=== PATIENT | female | born 1965 ===

== ENCOUNTER 2024-07-17 10:08 | Outpatient (AMB) | payer MEDICAID, SELFPAY ==
--- NOTE | 2024-07-17 10:09 | A.OFFVIS_ITS ---
Vital Signs 07/17/24 10:12 Height 4 ft 11 in Weight 178 lb 2 oz BMI 36.0 BP 110/72 Blood Pressure Location Rt brachial Position Sitting Pulse 73 Pulse Source Pulse Oximeter Pulse Oximetry (%) 97 Oxygen Delivery Method Room Air Intake Visit Reasons: arthritis Intake Note: Patient resents follow up arthritis Allergies amoxicillin [AMOXICILLIN] Allergy (Intermediate, Verified 07/17/24 10:13) HIVES clarithromycin [CLARITHROMYCIN] Allergy (Intermediate, Verified 07/17/24 10:13) HIVES clindamycin [CLINDAMYCIN] Allergy (Intermediate, Verified 07/17/24 10:13) HIVES ibuprofen [IBUPROFEN] Allergy (Intermediate, Verified 07/17/24 10:13) HIVES HPI HPI arthritis: Details: R knee burning started last april. Left knee has been hurting too. She notices swelling behind the knee. R elbow pain started 3-4 months ago. Exacerbated with using arm rest in car and touching area. Using tylenol 500mg x2 every 4 hours (3000-4000mg daily). Review of Systems Const All systems reviewed & are unremarkable except as noted in HPI and below Physical Exam Vital Signs: Last Vital Signs Pulse 73 07/17/24 10:12 BP 110/72 07/17/24 10:12 Pulse Ox 97 07/17/24 10:12 Oxygen Delivery Method Room Air 07/17/24 10:12 BMI result Body Mass Index 36.0 Const Other: General: Comfortable Skin: No lesions seen MSK: Tender to palpate medial and lateral joint lines of right knee and medial joint line of left knee. Bilateral crepitus present. Knee flexion 90 degrees bilateral. Stanford's cyst not present. Tender to palpate medial epicondyles without soft tissue swelling noted. No pain with resistant wrist flexion. Assessment & Plan Assessment & Plan (1) Knee osteoarthritis: Comment: bilateral R> L. she had benefit with right new intra-articular cortisone injection last visit but does not want to proceed with another injection due to fear of needles. We discussed medical management of pain control of osteoarthritis. I have ordered labs prior to starting duloxetine, which is indicated to treat knee pain from osteoarthritis. Code(s): M17.9 - Osteoarthritis of knee, unspecified Category: Medical Qualifiers: Osteoarthritis type: primary Plan: Bilateral knee x-rays ordered to evaluate for progression of arthritis Continue Tylenol 1000 mg every 6 hours. Discussed importance of limiting Tylenol to not more than 4000 mg in a day Continue diclofenac gel 1% applied to affected area every 4-6 hours as needed PT ordered After lab results are back, I will send prescription for duloxetine 30 mg daily I am avoiding oral NSAIDs as patient has had hives on ibuprofen and was told to avoid all NSAIDs. Right knee hinged brace prescription given to patient Encouraged weight loss. I recommended that patient contact PCP for seat covers trimmer referral and a discussion about medical management of weight loss Requesting records from [facility] Return to clinic in 3 months (2) Medial epicondylitis: Comment: Suspected. We discussed conservative management. Code(s): M77.00 - Medial epicondylitis, unspecified elbow Category: Medical Qualifiers: Laterality: unspecified laterality Qualified Code(s): M77.00 - Medial epicondylitis, unspecified elbow Plan: PT ordered Bilateral elbow support bands prescription given to patient Apply ice to affected area twice a day Avoid applying elbow on hard surfaces Apply diclofenac gel 1% to affected area every 4-6 hours as needed Return to clinic in 3 months Orders: Orders PT Evaluation and Treatment Today M17.9 - Osteoarthritis of knee, unspecified, M77.00 - Medial epicondylitis, unspecified elbow XR knee LT 2V Today M17.0 - Bilateral primary osteoarthritis of knee XR knee RT 2V Today M17.0 - Bilateral primary osteoarthritis of knee Creatinine Today M17.9 - Osteoarthritis of knee, unspecified, M77.00 - Medial epicondylitis, unspecified elbow Alanine Aminotransferase Today M17.9 - Osteoarthritis of knee, unspecified, M77.00 - Medial epicondylitis, unspecified elbow Aspartate Amino Transferase Today M17.9 - Osteoarthritis of knee, unspecified, M77.00 - Medial epicondylitis, unspecified elbow Complete Blood Count Auto Diff Today M17.9 - Osteoarthritis of knee, unspecified, M77.00 - Medial epicondylitis, unspecified elbow Medications: New arm brace (STEPH Elbow Brace) As directed. Bilateral elbow support bands Dx: medial epicondylitis 2 ea 0RF leg brace (Knee Support Brace) As directed R hinged brace Dx: osteoarthritis knee 1 ea 0RF Coding Level of Care Code Est Pt Level 4 (51663) Complex EM visit Add On G2211 Diagnoses Knee osteoarthritis M17.9 Osteoarthritis type: primary Medial epicondylitis of elbow, unspecified laterality M77.00 Laterality: unspecified laterality
[2024-07-17 10:12] VITALS: BP 110/72; PULSE 73; O2SAT 97; BMI 36.0
--- OUTSIDE RECORDS SUMMARY | 2024-07-17 12:00 | XMS_ITS | Clinical Summary ---
Author Organization [facility] Address [address] [place] [address] Care Team Providers Care Welcome Hostess Name Role Phone Lexa Cronin MD Primary Care Provider Source Comments PLEASE NOTE, if this patient is a minor, it may be UNLAWFUL to discuss sensitive information that is contained in these records (such as FAMILY PLANNING, MENTAL HEALTH or SUBSTANCE ABUSE) with the minor patient's parent or other person without the patient's specific authorization.[facility] Allergies Active Allergy Reactions Criticality Noted Date Comments Amoxicillin Hives Clarithromycin Hives Clindamycin Hives 01/17/2013 Fish Derived 06/14/2022 Ibuprofen Nausea and Vomiting Gi upset Latex 11/28/2022 Pollen Extracts 06/14/2022 Medications FLUoxetine (PROZAC) 20 mg capsuleIndication s:Anxiety and depression PSYCH- AUDIE 60MG QD 90 Cap 1 Active EPINEPHrine (EPIPEN) 0.3 mg/0.3 mL pen injectorIndicatio ns:Seafood allergy PRESCRIBED BY [employer] OPERATOR[address] [phone] 1 mL 020 Active miscellaneous medical supply misc by miscellaneous route once daily Cool mist humidifier, disp1,lifetime need, dx sinus congestion 1 Each 020 Active rizatriptan (MAXALT) 5 mg tablet PRESCRIBED BY NEUROLOGY BRYANT SILVERMAN Active divalproex (DEPAKOTE) [address] tablet TAKE 1 TABLET BY MOUTH AT SUPPER DAILY WITH 500 MG TAB Active doxepin (SINEQUAN) 50 mg capsule TAKE 1 CAPSULE BY MOUTH EVERYDAY AT BEDTIME Active MISCELLANEOUS MEDICAL SUPPLY MISCIndications:O steoarthritis of both knees, unspecified osteoarthritis type,Moderate persistent asthma without complication,Clas s 2 severe obesity due to excess calories with serious comorbidity and body mass index (BMI) of 38.0 to 38.9 in adult ([facility]),Chronic right-sided low back pain with right-sided sciatica,Fibromya lgia,Calcaneal spur of both feet,Plantar fasciitis, right,Tendinitis of left rotator cuff by miscellaneous route daily Electric Scooter. Use daily. Lifetime use. 1 Each 023 Active VENTOLIN HFA 90 mcg/actuation inhalerIndication s:Moderate persistent asthma without complication Inhale 2 Puffs into the lungs every 4 (four) hours as needed for shortness of breath or wheezing 18 g 1 023 Active betamethasone dipropionate (DIPROLENE) 0.05 % cream Apply topically once daily 15 g 1 023 Active capsaicin (CAPZASIN-HP) 0.1 % cream Apply topically 3 (three) times daily 43 g 023 Active ipratropium-albut Angelina (COMBIVENT RESPIMAT) 20-100 mcg/actuation inhalerIndication s:Moderate persistent asthma without complication INHALE 1 PUFF INTO THE LUNGS 4 TIMES DAILY. 4 g 1 023 Active albuterol (PROVENTIL) 2.5 mg /3 mL (0.083 %) nebulizer solutionIndicatio ns:Moderate persistent asthma without complication QID as needed for wheezing, SOB 75 mL 1 023 Active blood pressure monitorIndication s:Essential hypertension BLOOD PRESSURE MONITOR. Check blood pressure once daily in sitting position. Dx: I10. Length: lifetime 1 Kit 023 Active meloxicam (MOBIC) 15 mg tablet Take 1 Tablet by mouth once daily 90 Tablet 023 Active omeprazole (PRILOSEC) [address] capsuleIndication s:Gastroesophagea l reflux disease, unspecified whether esophagitis present TAKE 1 CAPSULE BY MOUTH EVERY DAY IN THE MORNING BEFORE BREAKFAST 90 Capsule 024 Active fluticasone (FLONASE) 50 mcg/actuation nasal sprayIndications: COVID-19,Chronic rhinitis Place 2 Sprays in both nostrils once daily 48 g 1 024 Active acetaminophen (TYLENOL 8 HOUR) 650 mg CR tabletIndications :Viral upper respiratory tract infection Take 1 Tablet by mouth every 8 (eight) hours as needed for pain 90 Tablet 1 Active diclofenac sodium (VOLTAREN) 1 % gel Apply topically 2 (two) times daily 450 g 1 Active pravastatin (PRAVACHOL) 10 mg tabletIndications :Mixed hyperlipidemia Take 1 Tablet by mouth nightly at bedtime 90 Tablet 1 Active lidocaine (LIDODERM) 5 % patch Place 1 Patch onto the skin once daily (every 24 hours) 90 Patch 1 Active fluticasone propion-salmetero L (ADVAIR DISKUS) 500-50 mcg/dose diskus inhalerIndication s:Moderate persistent asthma without complication INHALE 1 PUFF INTO THE LUNGS TWICE A DAY 60 Each 3 Active prazosin (MINIPRESS) 1 mg capsule TAKE 1 CAPSULE BY MOUTH EVERYDAY AT BEDTIME 90 Capsule 1 025 Active methocarbamoL (ROBAXIN) 500 mg tabletIndications :Cervicalgia,Fibr omyalgia TAKE 1 TABLET BY MOUTH THREE TIMES A DAY 180 Tablet 025 Active loratadine (CLARITIN) 10 mg tablet TAKE 1 TABLET BY MOUTH ONCE DAILY NEEDED FOR ALLERGIES 90 Tablet 1 025 Active loratadine (CLARITIN) 10 mg tablet Take 1 Tablet by mouth once daily as needed for allergies 90 Tablet 1 024 2024 Discontinued prazosin (MINIPRESS) 1 mg capsule TAKE 1 CAPSULE BY MOUTH EVERYDAY AT BEDTIME 90 Capsule 1 024 2024 Discontinued methocarbamoL (ROBAXIN) 500 mg tabletIndications :Cervicalgia,Fibr omyalgia TAKE 1 TABLET BY MOUTH THREE TIMES A DAY 180 Tablet 024 2024 Discontinued Active Problems Patient Care Coordination No te Formatting of this note migh t be different from the original. Community Partner: [facility] [facility] Jerardo Metzger Atmospheric Technician phone [phone] E mail: [email or web address] Problem Noted Date Diagnosed Date Alopecia 07/09/2024 Overview (07/09/2024): Follows [facility] Food insecurity 08/17/2023 Financial difficulties 08/17/2023 Lack of access to transportation 08/17/2023 Bilateral nephrolithiasis 03/07/2023 Overview (04/23/2024): 03/2024: 2 small calculi, lifestyle modification. F/u in 1 year. 02/2024: Urgent CT scan 2/2 pain, increase water, decrease sugary drinks 10/2023: Seen by Urology, recommended to cut back on sugary drinks 08/17/23: Following [facility], CT A/P and renal US pending 12/28/22: CT A/P L>R, measuring 4mm b/l 01/10/19 - seen at [facility] c/o R flank pain and epigastric pain. CT Abd/pelvis w/ contrast: IMPRESSION: 3 mm UVJ calculus w/ R hydronephrosis, right hydroureter, and R periphrenic stranding. Nonobstructing penctate L nephrolithiasis. Small hiatal hernia with mucosal thickening. Consider endoscopy f/u. 01/15/19 - [facility] eval: would suggest trial of spontaneous passage, f/u 2 weeks with a f/u u/s. 01/29/19 - urology f/u: pt asymptomatic, continues to have microscopic hematuria, uncertain if she passed stone. Will obtain low-dose CT. F/U after 04/04/19 - urology f/u: Recent CT shows no obstructing calculi w/ previously known punctate 4 mm nonobstructing calculi in L kidney. F/U 6 mos with U/S and 24 hr urine study. Essential hypertension 12/30/2022 Neuropathic pain 10/07/2022 10/07/2022 Chronic GERD 08/01/2021 Seafood allergy 03/06/2020 Sensorineural hearing loss (SNHL), bilateral Overview (11/25/2018): 04/10/18 - Seen by Audiology: Pt had hearing aids in the past but lost both of them 6-7 months ago. Audiogram shows moderate SNHL b/l, will arrange for hearing aid evaluation. Obstructive sleep apnea syndrome 09/12/2016 Overview (05/22/2024): + CPAP tx, followed by Pulm Dr. Martinez reports being consistent with use of NIVV Last sleep study 05/2024 Mixed hyperlipidemia 09/09/2014 Chronic right-sided low back pain with right-osmar ed sciatica 06/09/2014 Overview (05/11/2016): x-rays lumbar spine done 05/10/16 at [facility] = mild disc level degenerative changes at L1-L2 but otherwise normal. OA (osteoarthritis) of both knees Overview (08/17/2023): [facility] and receiving injections, every 3 months Anxiety and depression Overview (08/17/2023): Hx suicide attempts, insomnia ON PSYCH/BH for medication and therapy on [address] Therapy every week Psych every 3 months Moderate persistent asthma Overview (08/17/2023): Pulm Dr. Martinez at [address] Every 1-2 months Migraine without aura and wi thout status migrainosus, not intractable Overview (08/17/2023): Neuro f/u at [facility], every 3 to 4 months 04/24/17 - [facility] Neuro F/U: -- Continue psychotherapy and work on stress reduction, CPAP, Topiramate 100mg BID, Gabapentin 800mg TID and Nortriptyline 50mg QHS from other providers for other indications but these medications can also be used in treatment of headaches, Decrease Coke and increase water, Referral to pain center for evaluation of possible Botox therapy. F/U 6 mos 10/26/18 - Neuro F/U: started on Riboflavin 400 mg (vitamin B2). Consider adding Mg 400 mg daily. May consider trial of aimovig, has trialed and failed gabapentin, topamax, fluoxetine, trazodone . F/U 3-4 mos. Fibromyalgia Resolved Problems Problem Noted Date Diagnosed Date Resolved Date Hair loss 03/06/2020 12/30/2022 Hiatal hernia 01/10/19 05/07/2019 023 Overview (05/07/2019): 01/10/19 - seen at [facility] c/o R flank pain and epigastric pain. CT Abd/pelvis w/ contrast: IMPRESSION: 3 mm UVJ calculus w/ R hydronephrosis, right hydroureter, and R periphrenic stranding. Nonobstructing penctate L nephrolithiasis. Small hiatal hernia with mucosal thickening. Consider endoscopy f/u. Tendinitis of left rotator cuff 11/25/2018 12/30/2022 Overview (11/25/2018): 03/28/18 - R shoulder xray: calcific tendonitis. 07/01/18 - B/l shoulder xrays s/p fall: no fx/dislocation. R shoulder shows calcific peritendinitis adjacent to greater tiuberosity. 08/30/18 - Seen by ATC Dr. Magaña for L shoulder pain and R ankle pain. Dx: arthralgia of shoulder region, rotator cuff tendonitis. Tx: LEFT GH joint injection, F/u with podiatry for foot pain H/O fracture of toe 11/25/2015 12/31/19 Overview (12/17/2018): X-ray 11/23/15 nondisplaced traumatic fracture distal phalanx left 1st toe. 11/27/18 - Seen at [facility] for foot pain after fall. R ankle xray: neg. R foot xray: possible nondisplaced fx through the proximal phalanx of the R 4th toe. 12/14/18 - Seen at [facility] Ed c/o anterior R foot pain s/p fall 2 days ago. XRAY R foot: healing, nondisplaced Fx of the proximal phalanx of the 4th digit. Plantar fasciitis, right 01/01/2015 Overview (12/03/2018): X-ray 02/08/15 at [facility] = inferior calcaneal osteophytes, mildly increased since 12/26/13. S/p surgery right ankle 01/12/15 (peroneal tendon repair, tarsal tunnel release and plantar fasciotomy) done at [facility] Seen by [facility] 11/06/15 for 2nd opinion on pain and advised stretching to improve gastroc flexibility. 08/08/18 - Seen by Neuro Dr. Sosa for persistent sharp and needle-like pain in R foot s/p fall in ~2014. Dx: chronic pain syndrome. F/U at earliest convenience with all meds. Calcaneal spur of both feet 12/23/2014 12/30/2022 Overview (12/03/2018): X-rays 12/21/14 at [facility] = moderate sized inferior calcaneal osteophyte. X-ray 02/08/15 at [facility] = inferior calcaneal osteophytes, mildly increased since 12/26/13. Hemorrhoids 07/14/2014 12/30/2022 Microcytic anemia 11/04/2011 12/30/2022 Allergic rhinitis due to allergen 12/30/2022 Overview (04/16/2013): F/U [employer]. Encounters Date Type Department Care Team Description 07/04/2024 3:00 PM EST Telemedicine Visit [address] [phone] Chaparrita Martin NP Hair loss (Primary Dx); Other fatigue; Numbness of fingers; SOB (shortness of breath); Atypical chest pain; Mixed hyperlipidemia 05/30/2024 Interim Notes [address] [phone] Xochitl Scuhster 05/30/2024 Interim Notes [address] [phone] Khloe Hernandez 04/24/2024 Interim Notes [address] [phone] Lexa Cronin MD Screening mammogram for breast cancer (Primary Dx); Cervical cancer screening from Last 3 Months Immunizations Name Administration Dates Next Due Flu, Cell Culture based, Pre servative Free, 6m+, Flucelvax 04/27/2018,04/27/2018,03/29/2017,2016 Flu, Preservative Free 07/29/2021,01/26/2017,10/2014 Hep B, Adult/Adol (ENERGIX/RECOMBIVAX) 08/23/2000,06/07/2000 INFLUENZA, SEASONAL, INJECTABLE 06/27/19 17,03/16/2012,06/01/2011,2008,03/11/2008,04/24/2003 PFIZER COVID VACCINE, PURPLE CAP, 12+ 05/17/2021 PNEUMOCOCCAL CONJUGATE PCV 13 01/26/2017 PNEUMOCOCCAL CONJUGATE PCV 2 0 (Prevnar) 12/30/2022 Pfizer COVID-19 (Comirnaty), Mrna, Lnp-s, Pf, Naldo-sucrose, 30 Mcg/0.3 Ml, 12yr+ 08/17/2023 TDAP 08/17/2023,03/22/2013 ZOSTER VACCINE, RECOMBINANT (SHINGRIX) 12/30/2022 Family History Medical History Relation Name Comments Hypertension Father Heart Problems Mother Hypertension Mother Relation Name Status Comments Father Mother Social History Tobacco Use Types Packs/Day Years Used Date Smoking Tobacco: Never Smokeless Tobacco: Never Tobacco Cessation:Counseling Given: Not Answered Alcohol Use Standard Drinks/Week Comments No 0 (1 standard drink = 0.6 oz pur e alcohol) Social Connections Answer Date Recorded Connectedness 1 05/31/2024 Financial Resource Strain Answer Date R ecorded Financial Resource Strain 2 2023 Stress Answer Date Recorded Stress 1 05/31/2024 Physical Activity Answer Date Recorded Physical Activity 0 01/26/2019 Food Insecurity Answer Date Recorded Food 2 05/31/2024 Transportation Needs Answer Date Record ed Transportation 1 05/31/2024 Housing Stability Answer Date Recorded Housing 1 05/31/2024 Safety and Environment Answer Date Rosales rded Safety 1 08/17/2023 Utilities Answer Date Recorded Utilities 1 05/31/2024 Employment Answer Date Recorded Stress 0 06/14/2022 Comments No Sex and Gender Information Value Date Recorded Sex Assigned at Female 06/18/2017 8:21 AM PST Legal Sex Female 11:36 AM PDT Gender Identity Female 06/18/2017 8:21 AM PST Sexual Orientation Straight 07/28/2017 8: 08 AM PST Last Filed Vital Signs Vital Sign Reading Time Taken Comments Blood Pressure 100/64 08/17/2023 11:02 AM EDT Pulse 89 08/17/2023 11:02 AM EDT Temperature 36.1 ??C (97 ??F) 08/17/2023 11:02 AM EDT Respiratory Rate 16 08/17/2023 11:02 AM EDT Oxygen Saturation 96% 08/17/2023 11:02 AM EDT Inhaled Oxygen Concentration - - Weight 80.9 kg (178 lb 6.4 oz) 08/17/2023 11:02 AM EDT Height 150.7 cm (4' 11.33 ) 08/17/2023 11:02 AM EDT Body Mass Index 35.63 08/17/2023 11:02 AM EDT Plan of Treatment Health Maintenance Due Date Last Done Comments HPV Screening 1965 Pap + HPV 1965 CT Colonography 2010 FIT/gFOBT 2010 Fecal DNA 2010 Flexible Sigmoidoscopy 2010 Cervical Cancer Screening 09/28/2012 Pap Smear 09/28/2012 09/28/2009 Depression Monitoring 11/17/2023 08/17/2023 , 05/08/2023, 11/24/2022, Additional history exists [id number] ( season) 2024 08/17/2023, 05/17/2021, 11/14/2020, Additional history exists Imm-Influenza (#1) 2024 07/29/2021, 1 06/27/2017 (Managed by Outside Provider), 04/27/2018, Additional history exists Alcohol and Drug Screen 06/05/2024 08/17/19, 12/30/2022, 06/14/2022, Additional history exists Annual Preventive Care Visit 08/16/2024, 07/10/2018, 01/26/2017, Additional history exists Breast Cancer Screening (Mammogram) 03/14/2025 03/14/2023, 09/21/2020, 09/14/2020, Additional history exists Tobacco Screening 07/04/2025 07/04/2024, 12/14/2022 Diabetes Screening 07/09/2025 07/09/2024, 0 08/17/2023, 08/17/2023, Additional history exists Lipid Screening 07/09/2025 07/09/2024, 08/03, 12/08/2022, Additional history exists Colonoscopy 11/30/2025 12/01/2015 Colorectal Cancer Screening 11/30/2025 Imm-DTaP/Tdap/Td (3 - Td or Tdap) 08/16/2033 024, 03/22/2013 HIV Screening Completed 09/08/2017 Hepatitis C Screening Completed 09/08/2017 Imm-Pneumococcal Completed 12/30/2022, 01/26/2017 Imm-Hepatitis B Completed 08/28/2023, 08/04, 06/07/2000 Imm-Zoster, Recombinant Completed 08/28/2023, 12/30 Cervical Ablation/Cold-Knife Conization Discontinued Cervical Cryotherapy Discontinued Colposcopy Discontinued Endometrial Biopsy Discontinued Excision/Leep Discontinued HPV Genotyping Discontinued Vaginal Pap Discontinued Vulvoscopy Discontinued Procedures Procedure Name Priority Date/Time Associated Diagnosis Comments LIPID PANEL Routine 07/09/2024 9:05 AM EST Mixed hyperlipidemia COMPREHENSIVE METABOLIC PANEL Routine 07/09/2024 9:05 AM EST Hair loss Other fatigue Numbness of fingers SOB (shortness of breath) Atypical chest pain BLOOD COUNT COMPLETE AUTOMATED Routine 07/09/2024 9:05 AM EST Hair loss Other fatigue Numbness of fingers SOB (shortness of breath) Atypical chest pain VITAMIN B12 & FOLATE Routine 07/09/2024 9:05 AM EST Hair loss Other fatigue Numbness of fingers SOB (shortness of breath) Atypical chest pain THYROID CASCADING REFLEX PANEL Routine 07/09/2024 9:05 AM EST Hair loss Other fatigue Numbness of fingers SOB (shortness of breath) Atypical chest pain IRON, TIBC, FERRITIN PANEL Routine 07/09/2024 9:05 AM EST Hair loss Other fatigue Numbness of fingers SOB (shortness of breath) Atypical chest pain REFERRAL SCANNED DOCUMENT 07/04/2024 3:00 AM EST IMAGING SCANNED DOCUMENT 05/28/2024 3:00 AM EST IRON, TIBC, FERRITIN PANEL Routine 05/16/2024 11:35 AM EST Fatigue, unspecified type BLOOD COUNT COMPLETE AUTOMATED Routine 05/16/2024 11:35 AM EST Fatigue, unspecified type REFERRAL SCANNED DOCUMENT 05/13/2024 3:00 AM EST OTHER ORDERS SCANNED DOCUMENT 04/17/2024 3:00 AM EST OTHER ORDERS SCANNED DOCUMENT 04/17/2024 3:00 AM EST HISTORIC MAMMOGRAM 03/14/2023 3: 00 AM EDT ANTIBODY HIV-1&HIV-2 SINGLE RESULT Routine 09/08/2017 10:23 AM EDT Screening for HIV without presence of risk factors HEPATITIS A,B,C PANEL Routine 09/08/2017 10:23 AM EDT Need for hepatitis C screening test from Last 3 Months or Most Recently Relevant to Health Maintenance Results * IRON, TIBC, FERRITIN PANEL (07/09/2024 9:05 AM EST) Only the most recent of2 resultswithin the time period is included. FERRITIN 74 16 - 232 ng/mL [facility] IRON, TOTAL 68 45 - 160 mcg/dL [facility] IRON BINDING CAPACITY 263 250 - 450 mcg/dL (calc) [facility] % SATURATION 26 16 - 45 % (calc) [facility] Blood Blood / Unknown 07/09/2024 9 :05 AM EST 07/09/2024 9:06 AM EST us Chaparrita Martin NP LAB - BLOOD DRAW Final Resul t [employer] [address] [place] [id number], [employer] [address] [phone] * THYROID CASCADING REFLEX PANEL (07/09/2024 9:05 AM EST) TSH 1.29 0.40 - 4.50 mIU/L [facility] Blood Blood / Unknown 07/09/2024 9 :05 AM EST 07/09/2024 9:06 AM EST Chaparrita Martin [employer] LAB - BLOOD DRAW Edited Resu lt - Final [employer] [facility] [address] [address], [employer] [address] [address] * VITAMIN B12 & FOLATE (07/09/2024 9:05 AM EST) [facility] VITAMIN B12 379 200 - 1,100 pg/mL [facility] Comment: Please Note: Although the reference range for vitamin B12 is 200-1100 pg/mL, it has been reported that between 5 and 10% of patients with values between 200 and 400 pg/mL may experience neuropsychiatric and hematologic abnormalities due to occult B12 deficiency; less than 1% of patients with values above 400 pg/mL will have symptoms. FOLATE, SERUM 9.7 5.5 ng/mL [facility] Comment: ? Reference Range ? Low: ? <3.4 ? Borderline: ?3.4-5.4 ? Normal: ?>5.4 Blood Blood / Unknown 07/09/2024 9 :05 AM EST 07/09/2024 9:06 AM EST Chaparrita Martin [employer] APPLIQUER LAB - BLOOD DRAW Edited Resu lt - Final Performing Organization Address [facility]/ZIP Co de Phone Number [facility] [address] [address], [employer] [address] [address] * BLOOD COUNT COMPLETE AUTOMATED (07/09/2024 9:05 AM EST) Only the most recent of2 resultswithin the time period is included. [facility] WHITE BLOOD CELL COUNT 4.2 3.8 - 10.8 Thousand/ uL [facility] RED BLOOD CELL COUNT 4.23 3.80 - 5.10 Million/u L [facility] HEMOGLOBIN 12.6 11.7 - 15.5 g/dL [facility] HEMATOCRIT 38.0 35.0 - 45.0 % [facility] MCV 89.8 80.0 - 100.0 fL [facility] MCH 29.8 27.0 - 33.0 pg [facility] MCHC 33.2 32.0 - 36.0 g/dL [facility] Comment: For adults, a slight decrease in the calculated MCHC value (in the range of 30 to 32 g/dL) is most likely not clinically significant; however, it should be interpreted with caution in correlation with other red cell parameters and the patient's clinical condition. RDW 12.5 11.0 - 15.0 % [facility] PLATELET COUNT 313 140 - 400 Thousand/ uL [facility] MPV 9.7 7.5 - 12.5 fL [facility] Blood Blood / Unknown 07/09/2024 9 :05 AM EST 07/09/2024 9:06 AM EST Chaparrita Martin NP LAB - BLOOD DRAW Edited Resu lt - Final [employer] [employer] [address] [address], [facility] [address] [place] [address] * (ABNORMAL) LIPID PANEL (07/09/2024 9:05 AM EST) [facility] CHOLESTEROL, TOTAL 177 <200 mg/dL [facility] HDL CHOLESTEROL 59 > OR = 50 mg/dL [facility] TRIGLYCERIDES 73 <150 mg/dL [facility] LDL-CHOLESTEROL 102(H) 99 mg/dL (calc) [facility] Comment: Reference range: <100 Desirable range <100 mg/dL for primary prevention; ?? <70 mg/dL for patients with CHD or diabetic patients with > or = 2 CHD risk factors. LDL-C is now calculated using the Jason calculation, which is a validated novel method providing better accuracy than the Friedewald equation in the estimation of LDL-C. Sage AVALOS et al. MIAH. 2013;310(19): 2288-6253 (http://education.Soapets/faq/LPD403) CHOL/HDLC RATIO 3.0 <5.0 (calc) [facility] NON-HDL CHOLESTEROL 118 <130 mg/dL (calc) [facility] Comment: For patients with diabetes plus 1 major ASCVD risk factor, treating to a non-HDL-C goal of <100 mg/dL (LDL-C of <70 mg/dL) is considered a therapeutic option. Blood Blood / Unknown 07/09/2024 9 :05 AM EST 07/09/2024 9:06 AM EST Chaparrita Martin NP LAB - BLOOD DRAW Final Resul t [facility] [employer] [address] [place] [id number], [facility] [address] [place] [phone] * COMPREHENSIVE METABOLIC PANEL (07/09/2024 9:05 AM EST) [facility] Signature GLUCOSE 96 65 - 99 mg/dL [facility] Comment: ?Fasting reference interval UREA NITROGEN (BUN) 12 7 - 25 mg/dL [facility] CREATININE (blood) 0.60 0.50 - 1.03 mg/dL [facility] EGFR 103 > OR = 60 mL/min/1. 73m2 [facility] BUN/CREATININE RATIO SEE NOTE: [facility] Comment: ?? Not Reported: BUN and Creatinine are within ?? reference range. ? SODIUM 140 135 - 146 mmol/L [facility] POTASSIUM 4.4 3.5 - 5.3 mmol/L [facility] CHLORIDE 105 98 - 110 mmol/L [facility] CARBON DIOXIDE 26 20 - 32 mmol/L [facility] CALCIUM 9.2 8.6 - 10.4 mg/dL [facility] PROTEIN, TOTAL 6.9 6.1 - 8.1 g/dL [facility] ALBUMIN 4.2 3.6 - 5.1 g/dL [facility] [place] [employer] GLOBULIN 2.7 1.9 - 3.7 g/dL (calc) [facility] ALBUMIN/GLOBULI N RATIO 1.6 1.0 - 2.5 (calc) [facility] BILIRUBIN, TOTAL 0.4 0.2 - 1.2 mg/dL [facility] ALKALINE PHOSPHATASE 97 37 - 153 U/L [facility] AST 20 10 - 35 U/L [facility] ALT 11 6 - 29 U/L [facility] Blood Blood / Unknown 07/09/2024 9 :05 AM EST 07/09/2024 9:06 AM EST Chaparrita Martin [employer] APPLIQU[employer] LAB - BLOOD DRAW Final Resul t [facility] [address] [address], [employer] [address] [address] * REFERRAL SCANNED DOCUMENT (07/04/2024 3:00 AM EST) Only the most recent of2 resultswithin the time period is included. 07/04/2024 3:00 AM EST Emanuel Provider Default SCAN REFERRAL Final Resu lt * IMAGING SCANNED DOCUMENT (05/28/2024 3:00 AM EST) 05/28/2024 3:00 AM EST David Williamson MD SCAN IMAGING Final Result * OTHER ORDERS SCANNED DOCUMENT (04/17/2024 3:00 AM EST) Only the most recent of2 resultswithin the time period is included. 04/17/2024 3:00 AM EST Lexa Cronin MD SCAN OTHER ORDERS Final Result * HISTORIC MAMMOGRAM (03/14/2023 3:00 AM EDT) 03/14/2023 3:00 AM EDT Telma Churchill O[employer] BLASTING-C IMG MAMMO Final Re sult * (ABNORMAL) HEPATITIS A,B,C PANEL (09/08/2017 10:23 AM EDT) HEPATITIS B SURFACE ANTIBODY NEGATIVE NEGATIVE [facility] HEPATITIS B SURFACE ANTIGEN NEGATIVE NEGATIVE [facility] Comment: Over the counter supplements containing high doses of biotin may interfere with this assay. ??If interference is suspected, patients shoud be retested after refraining from biotin supplements for 72 hours. HEPATITIS C VIRUS DIAGNOSTIC NEGATIVE NEGATIVE [facility] HEPATITIS B CORE ANTIBODY NEGATIVE NEGATIVE [facility] HEPATITIS A ANTIBODY TOTAL POSITIVE(A) NEGATIVE [facility] Comment: Over the counter supplements containing high doses of biotin may interfere with this assay. ??If interference is suspected, patients shoud be retested after refraining from biotin supplements for 72 hours. Blood specimen (specimen) Blood / Unknown 09/08/2017 10:23 AM EDT 09/08/2017 10:[address] [facility] - 09/08/2017 1:01 PM EDT [facility] [employer] [address] [place] [address] PT ID [id number] ORD# [id number] Carmen Demarco PA-C LAB - BLOOD DRAW Edited R esult - Final [address] [address], * HIV-1 & HIV-2 ANTIBODIES (09/08/2017 10:23 AM EDT) HIV 1 AND 2 ANTIBODY SCREEN NEGATIVE NEGATIVE [facility] Comment: This assay is a 4th generation assay allowing for earlier detection of HIV infection by detecting the presence of the HIV-1 p24 antigen as well as the traditional antibodies to HIV type 1 (including group O) and type 2. ??Use of a 4th generation assay is the current CDC recommendation for HIV screening. Blood specimen (specimen) Blood / Unknown 09/08/2017 10:23 AM EDT 09/08/2017 10:40 AM EDT [facility] 09/08/2017 1:30 PM EDT [facility] [address] [place] [address] PT ID [id number] ORD# [id number] Carmen Demarco PA-C LAB - BLOOD DRAW Final Re sult [facility] [address] [place] [address], from Last 3 Months or Most Recently Relevant to Health Maintenance Insurance [facility] SAF[employer] NET DENTAL [employer] [address] ACO Care Teams Welcome Hostess Relationship Specialty Start Date End Date Lexa Cronin MD [address] [place] [id number] PCP - General Family Medicine, Physician 02/01/23
--- OUTSIDE RECORDS SUMMARY | 2024-07-17 12:00 | XMS_ITS | Encounter Summary ---
Author Organization [facility] Address [address] [place] [address] Care Team Providers Care Hvac Project Engineer Name Role Phone Lexa Cronin MD Primary Care Provider [phone] Encounter Details Date Type Department Care Team (Latest Contact Info) Description 07/04/2024 3:00 PM EST Telemedicine Visit [facility] [address] [place] [phone] Chaparrita Martin NP [address] [place], [place] [id number] Hair loss (Primary Dx); Other fatigue; Numbness of fingers; SOB (shortness of breath); Atypical chest pain; Mixed hyperlipidemia Social History Tobacco Use Types Packs/Day Years Used Date Smoking Tobacco: Never Smokeless Tobacco: Never Alcohol Use Standard Drinks/Week Comments No 0 [...] Orientation Straight 07/28/2017 8: 08 AM PST documented as of this encounter Progress Notes * Chaparrita Martin NP - 07/04/2024 7:33 PM EST Subjective: Jeaneth Bar is a 59 year old female here for No chief complaint on file. The following visit was conducted via Telephone. I educated the patient on the terms of telehealth and the patient verbally consented to this telemedicine visit. The patient was identified using their Name, and [facility] ID. I identified myself as Chaparrita Martin NP from [facility]. It was conducted in a private space to protect HIPPA sensitive information. Precautions were takento provide confidentiality and security and patient was made aware of privacy considerations. The patients location was obtained and is Pts home The patient was notified that the services were being provided from [facility] [place] The patient was notified how they can see a clinician in-person in the event of an emergency or if otherwise needed. Visit START TIME 3p END TIME 315p Projects Manager used during visit? No Technical issues for video to be done HPI: Jeaneth Bar is 59 year old female is here for sweating, sob, cp intermittent, tingling in fingers, fatigue x 3 days. Pt in menopause. Also c/o hairloss. ROS Review of Systems See HPI, remainder of ROSs negative or non-contributory. PMHx Patient Active Problem List Diagnosis OA (osteoarthritis) of both knees Anxiety and depression Moderate persistent asthma Migraine without aura and without status migrainosus, not intractable Obstructive sleep apnea syndrome Chronic right-sided low back pain with right-sided sciatica Mixed hyperlipidemia Fibromyalgia Sensorineural hearing loss (SNHL), bilateral Seafood allergy Chronic GERD Neuropathic pain Essential hypertension Bilateral nephrolithiasis Food insecurity Financial difficulties Lack of access to transportation Medications Current Outpatient Medications on File Prior to Visit Medication Sig Dispense Refill loratadine (CLARITIN) 10 mg tablet TAKE 1 TABLET BY MOUTH ONCE DAILY NEEDED FOR ALLERGIES 90 Tablet 1 methocarbamoL (ROBAXIN) 500 mg tablet TAKE 1 TABLET BY MOUTH THREE TIMES A DAY 180 Tablet 0 prazosin (MINIPRESS) 1 mg capsule TAKE 1 CAPSULE BY MOUTH EVERYDAY AT BEDTIME 90 Capsule 1 fluticasone propion-salmeteroL (ADVAIR DISKUS) 500-50 mcg/dose diskus inhaler INHALE 1 PUFF INTO THE LUNGS TWICE A DAY 60 Each 3 acetaminophen (TYLENOL 8 HOUR) 650 mg CR tablet Take 1 Tablet by mouth every 8 (eight) hours as needed for pain 90 Tablet 1 diclofenac sodium (VOLTAREN) 1 % gel Apply topically 2 (two) times daily 450 g 1 lidocaine (LIDODERM) 5 % patch Place 1 Patch onto the skin once daily (every 24 hours) 90 Patch 1 pravastatin (PRAVACHOL) 10 mg tablet Take 1 Tablet by mouth nightly at bedtime 90 Tablet 1 fluticasone (FLONASE) 50 mcg/actuation nasal spray Place 2 Sprays in both nostrils once daily 48 g 1 omeprazole (PRILOSEC) [address] capsule TAKE 1 CAPSULE BY MOUTH EVERY DAY IN THE MORNING BEFORE BREAKFAST 90 Capsule 0 meloxicam (MOBIC) 15 mg tablet Take 1 Tablet by mouth once daily 90 Tablet 0 blood pressure monitor BLOOD PRESSURE MONITOR. Check blood pressure once daily in sitting position.Dx: I10. Length: lifetime 1 Kit 0 albuterol (PROVENTIL) 2.5 mg /3 mL (0.083 %) nebulizer solution QID as needed for wheezing, SOB 75 mL 1 betamethasone dipropionate (DIPROLENE) 0.05 % cream Apply topically once daily 15 g 1 capsaicin (CAPZASIN-HP) 0.1 % cream Apply topically 3 (three) times daily 43 g 1 ipratropium-albuteroL (COMBIVENT RESPIMAT) 20-100 mcg/actuation inhaler INHALE 1 PUFF INTO THE LUNGS 4 TIMES DAILY. 4 g 1 VENTOLIN HFA 90 mcg/actuation inhaler Inhale 2 Puffs into the lungs every 4 (four) hours as needed for shortness of breath or wheezing 18 g 1 MISCELLANEOUS MEDICAL SUPPLY MISC by miscellaneous route daily Electric Scooter. Use daily. Lifetime use. 1 Each 0 doxepin (SINEQUAN) 50 mg capsule TAKE 1 CAPSULE BY MOUTH EVERYDAY AT BEDTIME divalproex (DEPAKOTE) [address] tablet TAKE 1 TABLET BY MOUTH AT SUPPER DAILY WITH 500 MG TAB rizatriptan (MAXALT) 5 mg tablet PRESCRIBED BY NEUROLOGY BRYANT SILVERMAN miscellaneous medical supply misc by miscellaneous route once daily Cool mist humidifier, disp1,lifetime need, dx sinus congestion 1 Each 0 EPINEPHrine (EPIPEN) 0.3 mg/0.3 mL pen injector PRESCRIBED BY BULK LOADER[address] [id number] 1 mL 0 FLUoxetine (PROZAC) 20 mg capsule PSYCH- AUDIE 60MG QD 90 Cap 1 No current facility-administered medications on file prior to visit. Objective: GENERAL/Psych: Pt sounds happy w/normal, age appropriate thought process Remaining physical exam components deferred d/t nature of telehealth encounter. Assessment/Plan: Jeaneth Bar is 59 year old female is here for L65.9 Hair loss (primary encounter diagnosis) Plan : IRON, TIBC, FERRITIN PANEL THYROID CASCADING REFLEX PANEL VITAMIN B12 & FOLATE BLOOD COUNT COMPLETE AUTOMATED COMPREHENSIVE METABOLIC PANEL R53.83 Other fatigue Plan : IRON, TIBC, FERRITIN PANEL THYROID CASCADING REFLEX PANEL VITAMIN B12 & FOLATE BLOOD COUNT COMPLETE AUTOMATED COMPREHENSIVE METABOLIC PANEL R20.0 Numbness of fingers Plan : IRON, TIBC, FERRITIN PANEL THYROID CASCADING REFLEX PANEL VITAMIN B12 & FOLATE BLOOD COUNT COMPLETE AUTOMATED COMPREHENSIVE METABOLIC PANEL R06.02 SOB (shortness of breath) Plan : IRON, TIBC, FERRITIN PANEL THYROID CASCADING REFLEX PANEL VITAMIN B12 & FOLATE BLOOD COUNT COMPLETE AUTOMATED COMPREHENSIVE METABOLIC PANEL R07.89 Atypical chest pain Plan : IRON, TIBC, FERRITIN PANEL THYROID CASCADING REFLEX PANEL VITAMIN B12 & FOLATE BLOOD COUNT COMPLETE AUTOMATED COMPREHENSIVE METABOLIC PANEL E78.2 Mixed hyperlipidemia Plan : LIPID PANEL Consider J CARLOS if labs normal , also discussed with pt Follow Up: No follow-ups on file. documented in this encounter Miscellaneous Notes * Result Encounter Note - Chaparrita Martin NP - 07/10/2024 9:11 AM EST The 10-year ASCVD risk score (Aubrey ALICEA, et al., 2019) is: 2.1% Labs stable work on diet to cointinue to decrease cholesterol but not bad No other concerns documented in this encounter Plan of Treatment Not on file documented as of this encounter Procedures Procedure Name Priority Date/Time Associated Diagnosis Comments IRON, TIBC, FERRITIN PANEL Routine 07/09/2024 9:05 [...] SOB (shortness of breath) Atypical chest pain LIPID PANEL Routine 07/09/2024 9:05 AM EST Mixed hyperlipidemia COMPREHENSIVE METABOLIC PANEL Routine 07/09/2024 9:05 AM EST Hair loss Other fatigue Numbness of fingers SOB (shortness of breath) Atypical chest pain documented in this encounter Results * (ABNORMAL) LIPID PANEL (07/09/2024 9:05 AM EST) Pathologist [facility] CHOLESTEROL, TOTAL 177 <200 mg/dL [facility] HDL CHOLESTEROL 59 > OR = 50 mg/dL [facility] TRIGLYCERIDES 73 <150 mg/dL [facility] LDL-CHOLESTEROL 102(H) 99 mg/dL (calc) [facility] Comment: Reference range: <100 Desirable range <100 mg/dL for primary prevention; ?? <70 mg/dL for patients with CHD or diabetic patients with > or = 2 CHD risk factors. LDL-C is now calculated using the Sage-Chyna calculation, which is a validated novel method providing better accuracy than the Friedewald equation in the estimation of LDL-C. Sage SS et al. MIAH. 2013;310(19): 8165-1517 (http://education.Solafeet/faq/UOI457) CHOL/HDLC RATIO 3.0 <5.0 (calc) Drive [facility] NON-HDL CHOLESTEROL 118 <130 mg/dL (calc) [facility] Comment: For patients with diabetes plus 1 major ASCVD risk factor, treating to a non-HDL-C goal of <100 mg/dL (LDL-C of <70 mg/dL) is considered a therapeutic option. Blood Blood / Unknown 07/09/2024 9 :05 AM EST 07/09/2024 9:06 AM EST Chaparrita Martin NP LAB - BLOOD DRAW Final Resul t [facility] [facility] [address] [address], [facility] [address] [place] [address] * COMPREHENSIVE METABOLIC PANEL (07/09/2024 9:05 AM EST) GLUCOSE 96 65 - 99 mg/dL [facility] Comment: ?Fasting reference interval UREA NITROGEN (BUN) 12 7 - 25 mg/dL [facility] CREATININE (blood) 0.60 0.50 - 1.03 mg/dL [facility] EGFR 103 > OR = 60 mL/min/1. 73m[address] [facility] BUN/CREATININE RATIO SEE NOTE: [facility] Comment: ?? Not Reported: BUN and Creatinine are within ?? reference range. ? SODIUM 140 135 - 146 mmol/L [facility] POTASSIUM 4.4 3.5 - 5.3 mmol/L [facility] CHLORIDE 105 98 - 110 mmol/L [facility] CARBON DIOXIDE 26 20 - 32 mmol/L [facility] [place] [facility] CALCIUM 9.2 8.6 - 10.4 mg/dL [facility] PROTEIN, TOTAL 6.9 6.1 - 8.1 g/dL [facility] ALBUMIN 4.2 3.6 - 5.1 g/dL [facility] GLOBULIN 2.7 1.9 - 3.7 g/dL (calc) Drive [facility] ALBUMIN/GLOBULI N RATIO 1.6 1.0 - 2.5 (calc) Drive [facility] BILIRUBIN, TOTAL 0.4 0.2 - 1.2 mg/dL [facility] ALKALINE PHOSPHATASE 97 37 - 153 U/L [facility] AST 20 10 - 35 U/L [facility] ALT 11 6 - 29 U/L [facility] Blood Blood / Unknown 07/09/2024 9 :05 AM EST 07/09/2024 9:06 AM EST us Chaparrita Martin NP LAB - BLOOD DRAW Final Resul t Performing Organization Address [facility]/ZIP Co de Phone Number [facility] [facility] [address] [address], [facility] [facility] [address] [place] [address] * BLOOD COUNT COMPLETE AUTOMATED (07/09/2024 9:05 AM EST) Pathologist [facility] WHITE BLOOD CELL COUNT 4.2 3.8 - 10.8 Thousand/ uL [facility] RED BLOOD CELL COUNT 4.23 3.80 - 5.10 Million/u L [facility] HEMOGLOBIN 12.6 11.7 - 15.5 g/dL [facility] HEMATOCRIT 38.0 35.0 - 45.0 % [address] [facility] MCV 89.8 80.0 - 100.[address] [facility] MCH 29.8 27.0 - 33.[address] [facility] MCHC 33.2 32.0 - 36.0 g/dL [facility] Comment: For adults, a slight decrease in the calculated MCHC value (in the range of 30 to 32 g/dL) is most likely not clinically significant; however, it should be interpreted with caution in correlation with other red cell parameters and the patient's clinical condition. RDW 12.5 11.0 - 15.0 % [address] [facility] PLATELET COUNT 313 140 - 400 Thousand/ uL [facility] MPV 9.7 7.5 - 12.[address] [facility] Blood Blood / Unknown 07/09/2024 9 :05 AM EST 07/09/2024 9:06 AM EST us Chaparrita Martin NP LAB - BLOOD DRAW Edited Resu lt - Final [facility] [address] [address], [facility] [facility] [address] [place] [address] * IRON, TIBC, FERRITIN PANEL (07/09/2024 9:05 AM EST) Pathologist [facility] FERRITIN 74 16 - 232 ng/mL [facility] IRON, TOTAL 68 45 - 160 mcg/dL [facility] IRON BINDING CAPACITY 263 250 - 450 mcg/dL (calc) [facility] % SATURATION 26 16 - 45 % (calc) [facility] Blood Blood / Unknown 07/09/2024 9 :05 AM EST 07/09/2024 9:06 AM EST us Chaparrita Martin NP LAB - BLOOD DRAW Final Resul t Performing Organization Address City/State/[facility] Co de Phone Number [employer] [address] [address], [address] [facility] [address] [place] [address] * VITAMIN B12 & FOLATE (07/09/2024 9:05 AM EST) [facility] VITAMIN B12 379 200 - 1,100 pg/mL [facility] Comment: Please Note: Although the reference range for vitamin B12 is 200-1100 pg/mL, it has been reported that between 5 and 10% of patients with values between 200 and 400 pg/mL may experience neuropsychiatric and hematologic abnormalities due to occult B12 deficiency; less than 1% of patients with values above 400 pg/mL will have symptoms. FOLATE, SERUM 9.7 5.5 ng/mL [facility] Comment: ? Reference Range ? Low: ? <3.4 ? Borderline: ?3.4-5.4 ? Normal: ?>5.4 Blood Blood / Unknown 07/09/2024 9 :05 AM EST 07/09/2024 9:06 AM EST Chaparrita Martin STUDIO OPERATIONS MANAGER LAB - BLOOD DRAW Edited Resu lt - Final Performing Organization Address [facility] Co de Phone Number [employer] [address] [address], [facility] [address] [address] * THYROID CASCADING REFLEX PANEL (07/09/2024 9:05 AM EST) TSH 1.29 0.40 - 4.50 mIU/L [facility] Blood Blood / Unknown 07/09/2024 9 :05 AM EST 07/09/2024 9:06 AM EST Chaparrita Martin STUDIO OPERATIONS MANAGER LAB - BLOOD DRAW Edited Resu lt - Final Performing Organization Address [facility] de Phone Number [employer] [address] [address], [facility] [address] [address] documented in this encounter Visit Diagnoses Diagnosis Hair loss- Primary Alopecia, unspecified Other fatigue Numbness of fingers Disturbance of skin sensation SOB (shortness of breath) Shortness of breath Atypical chest pain Other chest pain Mixed hyperlipidemia documented in this encounter Additional Health Concerns Assessment Noted Time PHQ-9 Depression Total Score: 17 08/16/ 024 11:43 AM PDT documented as of this encounter Care Teams Hvac Project Engineer Relationship Specialty Start Date End Date Lexa Cronin MD [address] [place] [address] PCP - General Family Medicine, Physician 02/01/23 documented as of this encounter
--- OUTSIDE RECORDS SUMMARY | 2024-07-17 12:00 | XMS_ITS | Clinical Summary ---
Author Organization 175 [facility] Address [address] [place] [address] Phone Care Team Providers Care Die Repair Name Role Phone David Williamson MD Primary Care Provider Allergies Active Allergy Reactions Criticality Noted Date Comments Amoxicillin 01/17/2011 Clindamycin 01/17/2011 Erythromycin 01/17/2011 Ibuprofen 01/17/2011 Shellfish Containing Products 2016 Medications acetaminophen (TYLENOL) 500 mg tablet Take 2 Tablets by mouth every 6 hours as needed. 2 Active albuterol 2.5 mg /3 mL (0.083 %) nebulizer solution Take 1 Vial by nebulization every 6 hours as needed for Wheezing, Shortness of Breath or Cough. 2 Active BABY ASPIRIN ORAL Take by mouth. Activ e diphenhydrAMINE (Banophen) 50 mg capsule Take 1 Capsule by mouth every 6 hours as needed. 2 Active benztropine (COGENTIN) 1 mg tablet Take 1 mg by mouth 2 times daily. Active betamethasone, augmented, (DIPROLENE-AF) 0.05 % cream Apply 1 g topically daily as needed. 2 Active blood pressure monitor kit 1 Kit by Does not apply route daily. 9 Active butalbital-acet aminophen-caffe ine (FIORICET, ESGIC) 50-325-40 mg per tablet Take 1 tablet by mouth every 4 hours as needed. Active cholecalciferol (VITAMIN D-3) 50 mcg (2,000 unit) capsule Take 1 Capsule by mouth daily. 2 Active guaiFENesin-cod eine (ROBITUSSIN-AC) 100-10 mg/5 mL syrup Take 5 mL by mouth 3 times daily. 2 Active ipratropium-alb uteroL (Combivent Respimat) 20-100 mcg/actuation inhaler Inhale 1 Puff into the lungs 4 times daily. 2 Active diclofenac (VOLTAREN) 1 % topical gel Apply 4 g topically every 4 hours as needed. 2 Active divalproex (DEPAKOTE) [address] tablet Take 1 Tablet by mouth daily. 2 Active divalproex (DEPAKOTE) [address] tablet Take 1 Tablet by mouth 2 times daily. 2 Active doxepin (SINEquan) 50 mg capsule Take 1 Capsule by mouth at bedtime. 2 Active EPINEPHrine (EpiPen 2-Chapin) 0.3 mg/0.3 mL injection Inject as directed. Active ferrous sulfate 325 mg (65 mg elemental iron) tablet Take 325 mg by mouth daily. Active FLUoxetine (PROzac) 20 mg capsule Take 20 mg by mouth daily. Active guaiFENesin (ROBITUSSIN) 100 mg/5 mL liquid Take 10 mL by mouth 3 times daily. 2 Active hydroCHLOROthia zide (HYDRODIURIL) 25 mg tablet Take 25 mg by mouth daily. Active indomethacin (INDOCIN) 50 mg capsule Take 1 Capsule by mouth 3 times daily. 2 Active ipratropium-alb uteroL (COMBIVENT RESPIMAT) 20-100 mcg/actuation inhaler Inhale 2 Puffs into the lungs every 6 hours as needed. Active levocetirizine (XYZAL) 5 mg tablet Take 1 Tablet by mouth daily. 2 Active lidocaine (LIDODERM) 5 % patch Place 1 Patch onto the skin daily. 2 Active loratadine (CLARITIN) 10 mg tablet TAKE 1 TABLET BY MOUTH EVERY DAY 9 Active melatonin 5 mg tablet Take 1 Tablet by mouth at bedtime. 7 Active methocarbamoL (ROBAXIN) 750 mg tablet Take 0.5 Tablets by mouth every 8 hours as needed. 2 Active minoxidiL (LONITEN) 2.5 mg tablet Take 1 Tablet by mouth daily. 2 Active montelukast (SINGULAIR) 10 mg tablet TAKE 1 TABLET BY MOUTH AT BEDTIME 2 Active multivitamin (MULTIPLE VITAMINS ORAL) Take by mouth. Active nortriptyline (PAMELOR) 25 mg capsule Take 25 mg by mouth at bedtime. Active OLANZapine (ZyPREXA) 10 mg tablet Take 10 mg by mouth at bedtime. Active omeprazole (PriLOSEC) [address] capsule TAKE 1 CAPSULE BY MOUTH EVERY DAY 1 Active prazosin (MINIPRESS) 1 mg capsule Take 1 Capsule by mouth at bedtime. 2 Active promethazine-co deine (PHENERGAN with CODEINE) 6.25-10 mg/5 mL syrup Take 5 mL by mouth 4 times daily. 2 Active sulindac (CLINORIL) 150 mg tablet Take 1 Tablet by mouth daily. 2 Active SUMAtriptan (IMITREX) 100 mg tablet Take 100 mg by mouth daily as needed. May repeat dose once after 2 hours, if needed. Active topiramate (TOPAMAX) 50 mg tablet Take 50 mg by mouth 2 times daily. Active zolpidem (AMBIEN) 10 mg tablet Take by mouth at bedtime as needed. Active triamcinolone acetonide (NASACORT AQ NASL) by Nasal route. Acti ve fluticasone propion-salmete roL (Wixela Inhub) 500-50 mcg/dose diskus inhaler Inhale 1 puff by mouth 2 (two) times a day. Rinse mouth with water after use to reduce aftertaste and incidence of candidiasis. Do not swallow. 1 each 12 4 05/15/20 25 Active Active Problems Problem Noted Date Diagnosed Date Obstructive sleep apnea syndrome in adult 2016 Arthritis 07/03/2012 Encounters Date Type Department Care Team Description 05/28/2024 1:40 PM EST - 05/28/2024 3:35 PM EST Emergency [facility] Emergency [address] [place] [address] Influenza A (Primary Dx) Discharge Disposition: Home or Self Care 05/15/2024 8:45 AM EST Office Visit Pulmonolgy - [place] [address] [place] [id number] Dereje Martinez MD Mild persistent asthma, unspecified whether complicated (Primary Dx) from Last 3 Months Immunizations Name Administration Dates Next Due Pfizer SARS-CoV-2 COVID-19, mRNA, LNP-S, preservative free 05/17/2021 Medical History Medical History Date Comments Depression 04/30/2017 DX:Depression Fibromyalgia 04/30/2017 DX:Fibromyalgia Allergic rhinitis 09/12/2016 DX:Allergic rh initis Anxiety 07/03/2012 DX:Anxiety Arthritis 07/03/2012 DX:Arthritis Asthma 09/12/2016 DX:Asthma Gastroesophageal reflux disease 07/05/2016 DX:Gastroesophageal reflux disease Hypertension 07/03/2012 DX:Hypertension Insomnia 07/03/2012 DX:Insomnia Migraine headache 07/03/2012 DX:Migraine he adache Obstructive sleep apnea syndrome in adult 017 DX:Obstructive sleep apnea syndrome in adult Hard of hearing wears hearing ai ds Social History Tobacco Use Types Packs/Day Years Used Date Smoking Tobacco: Never Smokeless Tobacco: Never Alcohol Use Standard Drinks/Week Comments No 0 (1 standard drink = 0.6 oz pur e alcohol) Comments Unknown Sex and Gender Information Value Date Recorded Sex Assigned at Not on file Legal Sex Female 8:28 AM EST Gender Identity Not on file Sexual Orientation Not on file Obstetrics History Last Filed Vital Signs Vital Sign Reading Time Taken Comments Blood Pressure 111/67 05/28/2024 3:22 PM EST Pulse 77 05/28/2024 3:22 PM EST Temperature 37.5 ??C (99.5 ??F) 05/28/2024 3:22 PM ES T Respiratory Rate 18 05/28/2024 3:22 PM EST Oxygen Saturation 95% 05/28/2024 3:22 PM EST Inhaled Oxygen Concentration - - Weight 80.3 kg (177 lb) 05/28/2024 12:36 PM EST Height 149.9 cm (4' 11 ) 05/28/2024 12:36 PM EST Body Mass Index 35.75 05/28/2024 12:36 PM EST Plan of Treatment Upcoming Encounters Date Type Department Care Team (Late st Contact Info) Description 11/14/2024 9:45 AM EDT Office Visit Pulmonolgy - [place] [address] [place] [phone] Dereje Martinez MD [address] [address] [place] [address] Health Maintenance Due Date Last Done Comments Breast Cancer Screening 1965 Cervical Cancer Screening: Pap Smear 1986 Colorectal Cancer Screening: Colonoscopy 05/14/2022 Hepatitis C Screening 05/14/2022 Social Influencers of Health Screening 05/14/2022 COVID-19 Vaccine ( season) 2024 08/17/2023, 05/17/2021, 11/14/2020, Additional history exists Influenza Vaccine (#1) 2024 , 04/27/2018, 03/29/2017, Additional history exists Depression Screening 08/16/2024 08/17/2023 Hypertension/CHF/CAD Annual BMP Blood Test 05/28/2025 05/28/2024, 08/17/2023, 12/08/2022 Cholesterol Screening (Lipid Panel) 08/16/2028 08/17/2023, 08/17/2023, 12/08/2022, Additional history exists DTaP,Tdap,and Td Vaccines (3 - Td or Tdap) 08/16/2033 08/17/2023, 03/22/2013 RSV Immunization Patients 60+ Years Old (1 - 1-dose 75+ series) 2040 HIV Screening Completed 09/08/2017 Pneumococcal Vaccine: 50+ Years Completed 12/30/2022, 01/26/2017 Pneumococcal Vaccine: Pediatrics (0 to 5 Years) and At-Risk Patients (6 to 64 Years) Completed 12/30/2022, 01/26/2017 Hepatitis B Vaccines Completed 08/28/2023, 08/23/2000, 06/07/2000 Zoster Vaccines Completed 08/28/2023, 12/30/2022 HIB Vaccines Aged Out No longer eligi ble based on patient's age to complete this topic HPV Vaccines Aged Out No longer eligi ble based on patient's age to complete this topic Hepatitis A Vaccines Aged Out No long er eligible based on patient's age to complete this topic IPV Vaccines Aged Out No longer eligi ble based on patient's age to complete this topic MMR Vaccines Aged Out No longer eligi ble based on patient's age to complete this topic Meningococcal ACWY Vaccine Aged Out N o longer eligible based on patient's age to complete this topic Meningococcal B Vacine Aged Out No lo nger eligible based on patient's age to complete this topic RSV Immunization Patients Under 20 months Aged Out No longer eligible based on patient's age to complete this topic Varicella Vaccines Aged Out No longer eligible based on patient's age to complete this topic Procedures Procedure Name Priority Date/Time Associated Diagnosis Comments XR CHEST 2 VIEWS STAT 05/28/2024 2:28 PM EST CBC WITH AUTO DIFFERENTIAL STAT 05/28/2024 1:08 PM EST LIPASE STAT 05/28/2024 1:08 PM EST MAGNESIUM STAT 05/28/2024 1:08 PM EST COMPREHENSIVE METABOLIC PANEL STAT 05/28/2024 1:08 PM EST CBC AND DIFFERENTIAL STAT 05/28/2024 1:08 PM EST RESPIRATORY VIRUS PANEL MOLECULAR STUDY STAT 05/28/2024 1:07 PM EST LIPID PANEL Routine 12/08/2022 from Last 3 Months or Most Recently Relevant to Health Maintenance Results * XR Chest 2 Views (05/28/2024 2:28 PM EST) Anatomical Region Laterality Modality Body Radiographic Kaitlyn ging 05/28/2024 2:34 PM EST Impressions 05/28/2024 2:35 PM EST No acute findings. -------- FINAL REPORT -------- Dictated By: Alex Mora Dictated Date: 05/28/2024 14:34 ET Assigned Physician: Alex Mora Reviewed and Electronically Signed By: Alex Mora Signed Date: 05/28/2024 14:35 ET Workstation ID: [id number] Transcribed By: Self Edit Transcribed Date: 05/28/2024 14:34 ET Narrative 05/28/2024 2:35 PM EST PA and lateral views of the chest dated 05/28/2024. HISTORY: Productive cough, fever. COMPARISON: 03/24/2024. FINDINGS: Lungs are clear. ??No pleural effusion, pulmonary edema, or pneumothorax. ??Normal heart size. ??Atherosclerotic calcific changes of the aorta. ??Mild apex leftward curvature of the spine at the thoracolumbar junction. ??Mild endplate degenerative changes of the spine. Procedure Note Alex Mora MD - 05/28/2024 PA and lateral views of the chest dated 05/28/2024. HISTORY: Productive cough, fever. COMPARISON: 03/24/2024. FINDINGS: Lungs are clear. No pleural effusion, pulmonary edema, or pneumothorax.Normal heart size. Atherosclerotic calcific changes of the aorta. Mildapex leftward curvature of the spine at the thoracolumbar junction. Mildendplate degenerative changes of the spine. IMPRESSION: No acute findings. -------- FINAL REPORT -------- Dictated By: Alex Mora Dictated Date: 05/28/2024 14:34 ET Assigned Physician: Alex Mora Reviewed and Electronically Signed By: Alex Mora Signed Date: 05/28/2024 14:35 ET Workstation ID: [id number] Transcribed By: Self Edit Transcribed Date: 05/28/2024 14:34 ET Jude WITT IMG XR PROCEDURES Final Result * (ABNORMAL) CBC auto differential (05/28/2024 1:08 PM EST) WBC 4.2(L) 4.8 - 10.8 [facility]/28/2024 1:29 PM [facility] RBC 4.80 3.80 - 4.80 M/mcL LAB HEMETOLOGY METHOD 05/28/2024 1:29 PM [facility] Hemoglobin 13.8 11.5 - 16.0 g/dL LAB HEMETOLOGY METHOD 05/28/2024 1:29 PM [facility] Hematocrit 42.6 35.0 - 47.0 % LAB HEMETOLOGY METHOD 05/28/2024 1:29 PM [facility] MCV 89.5 79.0 - 98.0 FL LAB HEMETOLOGY METHOD 05/28/2024 1:29 PM [facility] MCH 29.0 27.0 - 32.0 pcg LAB HEMETOLOGY METHOD 05/28/2024 1:29 PM [facility] MCHC 32.4 32.0 - 37.0 g/dL LAB HEMETOLOGY METHOD 05/28/2024 1:29 PM [facility] RDW 12.5 11.0 - 15.0 % LAB HEMETOLOGY METHOD 05/28/2024 1:29 PM [facility] Platelets 179 130 - 400 K/mcL LAB HEMETOLOGY METHOD 05/28/2024 1:29 PM [facility] MPV 9.6 7.0 - 11.0 FL LAB HEMETOLOGY METHOD 05/28/2024 1:29 PM [facility] NRBC 0.0 <1.0 % LAB HEMETOLOGY METHOD 05/28/2024 1:29 PM [facility] NRBC Absolute 0.00 <0.10 K/mcL LAB HEMETOLOGY METHOD 05/28/2024 1:29 PM [facility] Neutrophils Relative 51.1 % LAB HEMETOLOGY METHOD 05/28/2024 1:29 PM [facility] Lymphocytes Relative 28.5 % LAB HEMETOLOGY METHOD 05/28/2024 1:29 PM [facility] Monocytes Relative 18.8 % LAB HEMETOLOGY METHOD 05/28/2024 1:29 PM [facility] Eosinophils Relative 0.2 % LAB HEMETOLOGY METHOD 05/28/2024 1:29 PM [facility] Basophils Relative 0.7 % LAB HEMETOLOGY METHOD 05/28/2024 1:29 PM [facility] Immature Granulocytes Relative 0.7 % LAB HEMETOLOGY METHOD 05/28/2024 1:29 PM [facility] Neutrophils Absolute 2.15 1.50 - 7.00 K/mcL LAB HEMETOLOGY METHOD 05/28/2024 1:29 PM [facility] Lymphocytes Absolute 1.20 1.00 - 5.00 K/mcL LAB HEMETOLOGY METHOD 05/28/2024 1:29 PM [facility] Monocytes Absolute 0.79 0.20 - 1.00 K/mcL LAB HEMETOLOGY METHOD 05/28/2024 1:29 PM [facility] Eosinophils Absolute 0.01 0.00 - 0.50 K/mcL LAB HEMETOLOGY METHOD 05/28/2024 1:29 PM [facility] Basophils Absolute 0.03 0.00 - 0.20 K/mcL LAB HEMETOLOGY METHOD 05/28/2024 1:29 PM [facility] Immature Granulocytes Absolute 0.03 0.00 - 0.03 K/mcL LAB HEMETOLOGY METHOD 05/28/2024 1:29 PM [facility] Blood Venous blood specimen / Unknown Venipuncture / Unknown 05/28/2024 1:08 PM EST 05/28/2024 1:13 PM EST us Marcel Waddell MD LAB BLOOD ORDERABLES Final Res ult Performing Organization Address [facility] de Phone Number [facility] [address] [place] [address], [place] [phone] * Magnesium (05/28/2024 1:08 PM EST) Magnesium 2.3 1.9 - 2.6 mg/dL LAB CHEMISTRY METHOD 05/28/2024 1:46 PM EST [facility] Blood Venous blood specimen / Unknown Venipuncture / Unknown 05/28/2024 1:08 PM EST 05/28/2024 1:13 PM EST Marcel Waddell MD LAB BLOOD ORDERABLES Final Res ult Performing Organization Address [facility] de Phone Number [facility] [address] [place] [address], [place] [phone] * Lipase (05/28/2024 1:08 PM EST) Lipase 34 13 - 75 unit/L LAB CHEMISTRY METHOD 05/28/2024 1:46 PM EST [facility] Blood Venous blood specimen / Unknown Venipuncture / Unknown 05/28/2024 1:08 PM EST 05/28/2024 1:13 PM EST us Marcel Waddell MD LAB BLOOD ORDERABLES Final Res ult Performing Organization Address [facility] Co de Phone Number [facility] [address] [place] [address], [place] [phone] * (ABNORMAL) Comprehensive metabolic panel (05/28/2024 1:08 PM EST) Sodium 136 133 - 145 mmol/L LAB CHEMISTRY METHOD 05/28/2024 1:46 PM EST [facility] Potassium 3.6 3.5 - 5.5 mmol/L LAB CHEMISTRY METHOD 05/28/2024 1:46 PM [facility] Chloride 102 96 - 110 mmol/L LAB CHEMISTRY METHOD 05/28/2024 1:46 PM [facility] CO2 27 21 - 32 mmol/L LAB CHEMISTRY METHOD 05/28/2024 1:46 PM [facility] Anion Gap 7 3 - 11 LAB CHEMISTRY METHOD 05/28/2024 1:46 PM [facility] Glucose 104(H) 70 - 100 mg/dL LAB CHEMISTRY METHOD 05/28/2024 1:46 PM [facility] BUN 11 5 - 25 mg/dL LAB CHEMISTRY METHOD 05/28/2024 1:46 PM [facility] Creatinine 0.93 0.50 - 1.10 mg/dL LAB CHEMISTRY METHOD 05/28/2024 1:46 PM [facility] eGFR 71 >=60 mL/min/1. 73m2 LAB CHEMISTRY METHOD 05/28/2024 1:46 PM [facility] Comment:Calculation based on the??Chronic Kidney Disease Epidemiology Collaboration (CKD-EPI) equation refit??without adjustment for race. BUN/Creatinine Ratio 11.8 LAB CHEMISTRY METHOD 05/28/2024 1:46 PM [facility] Calcium 9.2 8.5 - 10.5 mg/dL LAB CHEMISTRY METHOD 05/28/2024 1:46 PM [facility] AST (SGOT) 25 10 - 42 unit/L LAB CHEMISTRY METHOD 05/28/2024 1:46 PM [facility] ALT (SGPT) 20 10 - 60 unit/L LAB CHEMISTRY METHOD 05/28/2024 1:46 PM [facility] Alkaline Phosphatase 79 42 - 121 unit/L LAB CHEMISTRY METHOD 05/28/2024 1:46 PM [facility] Total Protein 7.4 6.0 - 8.0 g/dL LAB CHEMISTRY METHOD 05/28/2024 1:46 PM [facility] Albumin 3.8 3.2 - 5.0 g/dL LAB CHEMISTRY METHOD 05/28/2024 1:46 PM EST [facility] Total Bilirubin 0.2 0.0 - 1.4 mg/dL LAB CHEMISTRY METHOD 05/28/2024 1:46 PM EST [facility] Blood Venous blood specimen / Unknown Venipuncture / Unknown 05/28/2024 1:08 PM EST 05/28/2024 1:13 PM EST us Marcel Waddell MD LAB BLOOD ORDERABLES Final Res ult [facility] [address] [place] [address], [place] [phone] * (ABNORMAL) Respiratory virus panel molecular study (05/28/2024 1:07 PM EST) Adenovirus Detection by PCR Not Detected Not Detected LAB MICROBIOLOGY METHOD 05/28/2024 2:34 PM [facility] Influenza B PCR Not Detected Not Detected LAB MICROBIOLOGY METHOD 05/28/2024 2:34 PM [facility] Coronavirus 229E Not Detected Not Detected LAB MICROBIOLOGY METHOD 05/28/2024 2:34 PM [facility] Coronavirus HKU1 Not Detected Not Detected LAB MICROBIOLOGY METHOD 05/28/2024 2:34 PM [facility] Coronavirus OC43 Not Detected Not Detected LAB MICROBIOLOGY METHOD 05/28/2024 2:34 PM [facility] Coronavirus NL63 Not Detected Not Detected LAB MICROBIOLOGY METHOD 05/28/2024 2:34 PM [facility] Parainfluenza Virus 1 Not Detected Not Detected LAB MICROBIOLOGY METHOD 05/28/2024 2:34 PM [facility] Parainfluenza Virus 2 Not Detected Not Detected LAB MICROBIOLOGY METHOD 05/28/2024 2:34 PM [facility] Parainfluenza Virus 3 Not Detected Not Detected LAB MICROBIOLOGY METHOD 05/28/2024 2:34 PM [facility] Parainfluenza Virus 4 Not Detected Not Detected LAB MICROBIOLOGY METHOD 05/28/2024 2:34 PM [facility] RSV PCR Not Detected Not Detected LAB MICROBIOLOGY METHOD 05/28/2024 2:34 PM [facility] Human Metapneumovirus A and B Not Detected Not Detected LAB MICROBIOLOGY METHOD 05/28/2024 2:34 PM [facility] Rhinovirus/Entero virus Not Detected Not Detected LAB MICROBIOLOGY METHOD 05/28/2024 2:34 PM [facility] Bordetella pertussis Not Detected Not Detected LAB MICROBIOLOGY METHOD 05/28/2024 2:34 PM [facility] Bordetella parapertussis Not Detected Not Detected LAB MICROBIOLOGY METHOD 05/28/2024 2:34 PM [facility] Influenza A H3 Detected(A ) Not Detected LAB MICROBIOLOGY METHOD 05/28/2024 2:34 PM [facility] Mycoplasma pneumo by PCR Not Detected Not Detected LAB MICROBIOLOGY METHOD 05/28/2024 2:34 PM [facility] Chlamydia pneumoniae Not Detected Not Detected LAB MICROBIOLOGY METHOD 05/28/2024 2:34 PM [facility] SARS COV-2 Not Detected Not Detected LAB MICROBIOLOGY METHOD 05/28/2024 2:34 PM [facility] Swab Both anterior nares / Unknown Non-blood Collection / Unknown 05/28/2024 1:07 PM EST 05/28/2024 1:13 PM [facility] - 05/28/2024 2:34 PM EST Testing was performed using the [employer] Respiratory Pathogen PCR Assay. All results must be correlated with the clinical findings. Results should not be used as the sole basis for diagnosis. False Negative results may occur from the presence of sequence variants in the region targeted by the assay or the presence of inhibitors. Results may be affected by concurrent antiviral/antimicrobial therapy or levels of organisms that are below the limit of detection. Marcel Waddell MD LAB MICROBIOLOGY - GENERAL ORD ERABLES Edited Result - Final [facility] [address] [place] [address], * Lipid panel (12/08/2022) Triglycerides 0 mg/dL Comment:no interpretation Cholesterol 0 mg/dL Comment:no interpretation HDL 0 mg/dL Comment:no interpretation LDL Cholesterol 0 mg/dL Comment:no interpretation Blood Venous blood specimen / Unknown Historical Provider LAB BLOOD ORDERABLES Flor l Result from Last 3 Months or Most Recently Relevant to Health Maintenance Insurance MEDICAID - [place] Care Teams Die Repair Relationship Specialty Start Date End Date David Williamson MD [address] [place] [id number] PCP - General Internal Medicine 09/21/17
== END 2024-07-17 10:55 | disposition home or self-care (01) ==
PROVIDERS: PCP Student in an Organized Health Care Education/Training Program; Visit Provider Internal Medicine Rheumatology
DX: M17.9 Osteoarthritis of knee, unspecified (principal); M77.00 Medial epicondylitis, unspecified elbow
CPT/HCPCS: 99214

== ENCOUNTER 2024-07-17 10:08 | Outpatient (REF) | payer MEDICAID, SELFPAY ==
--- OUTSIDE RECORDS SUMMARY | 2024-07-17 12:54 | XMS_ITS | Clinical Summary ---
Author Organization [address] [facility] Address [address] [place] [address] Phone Care Team Providers Care Drafting Layout Worker Name Role Phone David Williamson MD Primary Care Provider [phone] Allergies Active Allergy Reactions Criticality Noted Date [...] EST - 05/28/2024 3:35 PM EST Emergency [facility] Emergency [address] [place] [address] Influenza A (Primary Dx) Discharge Disposition: Home or Self Care 05/15/2024 8:45 AM EST Office Visit Pulmonolgy [place] [facility] [address] [place] [phone] Dereje Martinez MD Mild persistent asthma, unspecified [...] 9:45 AM EDT Office Visit Pulmonolgy [place] [address] [facility] [address] [place] [phone] Dereje Martinez MD [address] [facility] [address] [place] [address] Health Maintenance Due Date Last Done Comments [...] Signed Date: 05/28/2024 14:35 ET Workstation ID: [id number] Transcribed By: Self Edit Transcribed Date: 05/28/2024 [...] Signed Date: 05/28/2024 14:35 ET Workstation ID: [id number] Transcribed By: Self Edit Transcribed Date: 05/28/2024 14:34 ET Jude WITT IMG XR PROCEDURES Final Result * (ABNORMAL) CBC auto differential (05/28/2024 1:08 PM EST) WBC 4.2(L) 4.8 - 10.8 K[facility] 05/28/2024 1:29 PM [facility] RBC 4.80 3.80 - 4.80 M/mcL LAB HEMETOLOGY METHOD 05/28/2024 1:29 PM [facility] Hemoglobin 13.8 11.5 - 16.0 g/dL LAB HEMETOLOGY METHOD 05/28/2024 1:29 PM [facility] Hematocrit 42.6 35.0 - 47.0 % LAB HEMETOLOGY METHOD 05/28/2024 1:29 PM [facility] MCV 89.5 79.0 - 98.0 FL LAB HEMETOLOGY METHOD 05/28/2024 1:29 PM [facility] MCH 29.0 27.0 - 32.0 pcg LAB HEMETOLOGY METHOD 05/28/2024 1:29 PM [facility] MCHC 32.4 32.0 - 37.0 g/dL LAB HEMETOLOGY METHOD 05/28/2024 1:29 PM [facility] RDW 12.5 11.0 - 15.0 % LAB HEMETOLOGY METHOD 05/28/2024 1:29 PM [facility] LAB Platelets 179 130 - 400 K/mcL LAB HEMETOLOGY METHOD 05/28/2024 1:29 PM [facility] MPV 9.6 7.0 - 11.0 FL LAB HEMETOLOGY METHOD 05/28/2024 1:29 PM [facility] NRBC 0.0 <1.0 % LAB HEMETOLOGY METHOD 05/28/2024 1:29 PM [facility] LAB NRBC Absolute 0.00 <0.10 K/mcL LAB HEMETOLOGY METHOD 05/28/2024 1:29 PM [facility] Neutrophils Relative 51.1 % LAB HEMETOLOGY METHOD 05/28/2024 1:29 PM [facility] Lymphocytes Relative 28.5 % LAB HEMETOLOGY METHOD 05/28/2024 1:29 PM [facility] Monocytes Relative 18.8 % LAB HEMETOLOGY METHOD 05/28/2024 1:29 PM [facility] Eosinophils Relative 0.2 % LAB HEMETOLOGY METHOD 05/28/2024 1:29 PM [facility] Basophils Relative 0.7 % LAB HEMETOLOGY METHOD 05/28/2024 1:29 PM [facility] Immature Granulocytes Relative 0.7 % LAB HEMETOLOGY METHOD 05/28/2024 1:29 PM [facility] Neutrophils Absolute 2.15 1.50 - 7.00 K/mcL LAB HEMETOLOGY METHOD 05/28/2024 1:29 PM [facility] Lymphocytes Absolute 1.20 1.00 - 5.00 K/mcL LAB HEMETOLOGY METHOD 05/28/2024 1:29 PM [facility] Monocytes Absolute 0.79 0.20 - 1.00 K/mcL LAB HEMETOLOGY METHOD 05/28/2024 1:29 PM [facility] Eosinophils Absolute 0.01 0.00 - 0.50 K/mcL LAB HEMETOLOGY METHOD 05/28/2024 1:29 PM [facility] Basophils Absolute 0.03 0.00 - 0.20 K/mcL LAB HEMETOLOGY METHOD 05/28/2024 1:29 PM [facility] Immature Granulocytes Absolute 0.03 0.00 - 0.03 K/mcL LAB HEMETOLOGY METHOD 05/28/2024 1:29 PM [facility] Blood Venous blood specimen / Unknown Venipuncture / Unknown 05/28/2024 1:08 PM EST 05/28/2024 1:13 PM EST us Marcel Waddell MD LAB BLOOD ORDERABLES Final Res ult Performing Organization Address [facility] de Phone Number [facility] [address] [place] [address], [place] [phone] * Magnesium (05/28/2024 1:08 PM EST) Magnesium 2.3 1.9 - 2.6 mg/dL LAB CHEMISTRY METHOD 05/28/2024 1:46 PM EST [facility] Blood Venous blood specimen / Unknown Venipuncture / Unknown 05/28/2024 1:08 PM EST 05/28/2024 1:13 PM EST Marcel Waddell MD LAB BLOOD ORDERABLES Final Res ult Performing Organization Address [facility] de Phone Number [facility] [address] [place] [address], [place] [phone] * Lipase (05/28/2024 1:08 PM EST) Lipase 34 13 - 75 unit/L LAB CHEMISTRY METHOD 05/28/2024 1:46 PM EST [facility] Blood Venous blood specimen / Unknown Venipuncture / Unknown 05/28/2024 1:08 PM EST 05/28/2024 1:13 PM EST us Marcel Waddell MD LAB BLOOD ORDERABLES Final Res ult Performing Organization Address [facility] Co de Phone Number [facility] [address] [place] [address], [place] [phone] * (ABNORMAL) Comprehensive metabolic panel (05/28/2024 1:08 PM EST) Sodium 136 133 - 145 mmol/L LAB CHEMISTRY METHOD 05/28/2024 1:46 PM EST [facility] Potassium 3.6 3.5 - 5.5 mmol/L LAB CHEMISTRY METHOD 05/28/2024 1:46 PM [facility] Chloride 102 96 - 110 mmol/L LAB CHEMISTRY METHOD 05/28/2024 1:46 PM [facility] CO2 27 21 - 32 mmol/L LAB CHEMISTRY METHOD 05/28/2024 1:46 PM [facility] Anion Gap 7 3 - 11 LAB CHEMISTRY METHOD 05/28/2024 1:46 PM [facility] Glucose 104(H) 70 - 100 mg/dL LAB CHEMISTRY METHOD 05/28/2024 1:46 PM [facility] BUN 11 5 - 25 mg/dL LAB CHEMISTRY METHOD 05/28/2024 1:46 PM [facility] Creatinine 0.93 0.50 - 1.10 mg/dL LAB CHEMISTRY METHOD 05/28/2024 1:46 PM [facility] eGFR 71 >=60 mL/min/1. 73m2 LAB CHEMISTRY METHOD 05/28/2024 1:46 PM [facility] Comment:Calculation based on the??Chronic Kidney Disease Epidemiology Collaboration (CKD-EPI) equation refit??without adjustment for race. BUN/Creatinine Ratio 11.8 LAB CHEMISTRY METHOD 05/28/2024 1:46 PM [facility] Calcium 9.2 8.5 - 10.5 mg/dL LAB CHEMISTRY METHOD 05/28/2024 1:46 PM [facility] AST (SGOT) 25 10 - 42 unit/L LAB CHEMISTRY METHOD 05/28/2024 1:46 PM [facility] ALT (SGPT) 20 10 - 60 unit/L LAB CHEMISTRY METHOD 05/28/2024 1:46 PM [facility] Alkaline Phosphatase 79 42 - 121 unit/L LAB CHEMISTRY METHOD 05/28/2024 1:46 PM [facility] Total Protein 7.4 6.0 - 8.0 g/dL LAB CHEMISTRY METHOD 05/28/2024 1:46 PM [facility] Albumin 3.8 3.2 - 5.0 g/dL LAB CHEMISTRY METHOD 05/28/2024 1:46 PM EST [facility] Total Bilirubin 0.2 0.0 - 1.4 mg/dL LAB CHEMISTRY METHOD 05/28/2024 1:46 PM EST [facility] Blood Venous blood specimen / Unknown Venipuncture / Unknown 05/28/2024 1:08 PM EST 05/28/2024 1:13 PM EST us Marcel Waddell MD LAB BLOOD ORDERABLES Final Res ult [facility] [address] [place] [address], [place] [phone] * (ABNORMAL) Respiratory virus panel molecular study (05/28/2024 1:07 PM EST) Adenovirus Detection by PCR Not Detected Not Detected LAB MICROBIOLOGY METHOD 05/28/2024 2:34 PM [facility] Influenza B PCR Not Detected Not Detected LAB MICROBIOLOGY METHOD 05/28/2024 2:34 PM [facility] Coronavirus 229E Not Detected Not Detected LAB MICROBIOLOGY METHOD 05/28/2024 2:34 PM [facility] Coronavirus HKU1 Not Detected Not Detected LAB MICROBIOLOGY METHOD 05/28/2024 2:34 PM [facility] Coronavirus OC43 Not Detected Not Detected LAB MICROBIOLOGY METHOD 05/28/2024 2:34 PM [facility] Coronavirus NL63 Not Detected Not Detected LAB MICROBIOLOGY METHOD 05/28/2024 2:34 PM [facility] Parainfluenza Virus 1 Not Detected Not Detected LAB MICROBIOLOGY METHOD 05/28/2024 2:34 PM [facility] Parainfluenza Virus 2 Not Detected Not Detected LAB MICROBIOLOGY METHOD 05/28/2024 2:34 PM [facility] Parainfluenza Virus 3 Not Detected Not Detected LAB MICROBIOLOGY METHOD 05/28/2024 2:34 PM [facility] Parainfluenza Virus 4 Not Detected Not Detected LAB MICROBIOLOGY METHOD 05/28/2024 2:34 PM [facility] RSV PCR Not Detected Not Detected LAB MICROBIOLOGY METHOD 05/28/2024 2:34 PM [facility] Human Metapneumovirus A and B Not Detected Not Detected LAB MICROBIOLOGY METHOD 05/28/2024 2:34 PM [facility] Rhinovirus/Entero virus Not Detected Not Detected LAB MICROBIOLOGY METHOD 05/28/2024 2:34 PM [facility] Bordetella pertussis Not Detected Not Detected LAB MICROBIOLOGY METHOD 05/28/2024 2:34 PM [facility] Bordetella parapertussis Not Detected Not Detected LAB MICROBIOLOGY METHOD 05/28/2024 2:34 PM [facility] Influenza A H3 Detected(A ) Not Detected LAB MICROBIOLOGY METHOD 05/28/2024 2:34 PM [facility] Mycoplasma pneumo by PCR Not Detected Not Detected LAB MICROBIOLOGY METHOD 05/28/2024 2:34 PM [facility] Chlamydia pneumoniae Not Detected Not Detected LAB MICROBIOLOGY METHOD 05/28/2024 2:34 PM [facility] SARS COV-2 Not Detected Not Detected LAB MICROBIOLOGY METHOD 05/28/2024 2:34 PM [facility] Swab Both anterior nares / Unknown Non-blood Collection / Unknown 05/28/2024 1:07 PM EST 05/28/2024 1:13 PM [facility] - 05/28/2024 2:34 PM EST Testing was performed using the [employer] Respiratory Pathogen PCR Assay. All results must [...] ERABLES Edited Result - Final [facility] [address] [place] [address], * Lipid panel (12/08/2022) Triglycerides 0 mg/dL Comment:no interpretation Cholesterol 0 mg/dL Comment:no interpretation HDL 0 mg/dL Comment:no interpretation LDL Cholesterol 0 mg/dL Comment:no interpretation Blood Venous blood specimen / Unknown Historical Provider LAB BLOOD ORDERABLES Flor l Result from Last 3 Months or Most Recently Relevant to Health Maintenance Insurance MEDICAID - [place] Care Teams Drafting Layout Worker Relationship Specialty Start Date End Date David Williamson MD [address] [place] [phone] PCP - General Internal Medicine 09/21/17
--- OUTSIDE RECORDS SUMMARY | 2024-07-17 12:54 | XMS_ITS | Clinical Summary ---
Author Organization [facility] Address [address] [place] [address] Care Team Providers Care Hspt Tutor Name Role Phone Lexa Cronin MD Primary [...] mL pen injectorIndicatio ns:Seafood allergy PRESCRIBED BY ENAMEL BUFFER[address] [phone] 1 mL 020 Active miscellaneous medical supply [...] (BMI) of 38.0 to 38.9 in adult ([facility]),Chronic right-sided low back pain with right-sided sciatica,Fibromya [...] be different from the original. Community Partner: [facility] [facility] Jerardo Metzger Perfume Compounder phone [phone] E mail: Problem Noted Date Diagnosed Date Alopecia 07/09/2024 [...] measuring 4mm b/l 01/10/19 - seen at [facility] c/o R flank pain and epigastric pain. [...] (05/11/2016): x-rays lumbar spine done 05/10/[address] [facility] = mild disc level degenerative changes at L1-L2 but otherwise normal. OA (osteoarthritis) of both knees Overview (08/17/2023): [facility] and receiving injections, every 3 months Anxiety and depression Overview (08/17/2023): Hx suicide attempts, insomnia ON PSYCH/BH for medication and therapy on [address] Therapy every week Psych every 3 months Moderate persistent asthma Overview (08/17/2023): Pulm Dr. Martinez at [address] Every 1-2 months Migraine without aura and wi thout status migrainosus, not intractable Overview (08/17/2023): Neuro f/u at [facility], every 3 to 4 months 04/24/17 - [facility] Neuro F/U: -- Continue psychotherapy and work [...] 023 Overview (05/07/2019): 01/10/19 - seen at [facility] c/o R flank pain and epigastric pain. [...] left 1st toe. 11/27/18 - Seen at [facility] for foot pain after fall. R ankle xray: neg. R foot xray: possible nondisplaced fx through the proximal phalanx of the R 4th toe. 12/14/18 - Seen at [facility] Ed c/o anterior R foot pain s/p fall 2 days ago. XRAY R foot: healing, nondisplaced Fx of the proximal phalanx of the 4th digit. Plantar fasciitis, right 01/01/2015 Overview (12/03/2018): X-ray 02/08/[address] [facility] = inferior calcaneal osteophytes, mildly increased since 12/26/13. S/p surgery right ankle 01/12/15 (peroneal tendon repair, tarsal tunnel release and plantar fasciotomy) done at [facility]. Seen by [facility] 11/06/15 for 2nd opinion on pain and advised stretching to improve gastroc flexibility. 08/08/18 - Seen by Neuro Dr. Sosa for persistent sharp and needle-like pain in R foot s/p fall in ~2014. Dx: chronic pain syndrome. F/U at earliest convenience with all meds. Calcaneal spur of both feet 12/23/2014 12/30/2022 Overview (12/03/2018): X-rays 12/21/[address] [facility] = moderate sized inferior calcaneal osteophyte. X-ray 02/08/[address] [facility] = inferior calcaneal osteophytes, mildly increased since 12/26/13. Hemorrhoids 07/14/2014 12/30/2022 Microcytic anemia 11/04/2011 12/30/2022 Allergic rhinitis due to allergen 12/30/2022 Overview (04/16/2013): F/U ENAMEL BUFFER. Encounters Date Type Department Care Team Description 07/04/2024 3:00 PM EST Telemedicine Visit [address] [phone] Chaparrita Martin NP Hair loss (Primary Dx); Other fatigue; Numbness of fingers; SOB (shortness of breath); Atypical chest pain; Mixed hyperlipidemia 05/30/2024 Interim Notes [address] [phone] Xochitl Schuster 05/30/2024 Interim Notes [address] [phone] Khloe Hernandez 04/24/2024 Interim Notes [address] [phone] Lexa Cronin MD Screening mammogram for breast [...] 08/17/2023 , 05/08/2023, 11/24/2022, Additional history exists [id number] ( season) 2024 08/17/2023, 05/17/2021, 11/14/2020, Additional [...] included. FERRITIN 74 16 - 232 ng/mL [facility] IRON, TOTAL 68 45 - 160 mcg/dL [facility]ON BINDING CAPACITY 263 250 - 450 mcg/dL (calc) [facility] % SATURATION 26 16 - 45 % (calc) [facility] Blood Blood / Unknown 07/09/2024 9 :05 AM EST 07/09/2024 9:06 AM EST us Chaparrita Martin NP LAB - BLOOD DRAW Final Resul t [facility] [address] [place] [address], [employer] [address] [address] * THYROID CASCADING REFLEX PANEL (07/09/2024 9:05 AM EST) TSH 1.29 0.40 - 4.50 mIU/L [facility] [facility] Blood Blood / Unknown 07/09/2024 9 :05 AM EST 07/09/2024 9:06 AM EST Chaparrita Martin COMMUNITY RELATIONS COORDINATOR LAB - BLOOD DRAW Edited Resu lt - Final [employer] [facility] [address] [address], [employer] [address] [address] * VITAMIN B12 & FOLATE (07/09/2024 9:05 AM EST) [facility] VITAMIN B12 379 200 - 1,100 pg/mL [facility] Comment: Please Note: Although the reference range for vitamin B12 is 200-1100 pg/mL, it has been reported that between 5 and 10% of patients with values between 200 and 400 pg/mL may experience neuropsychiatric and hematologic abnormalities due to occult B12 deficiency; less than 1% of patients with values above 400 pg/mL will have symptoms. FOLATE, SERUM 9.7 5.5 ng/mL [facility] Comment: ? Reference Range ? Low: ? <3.4 ? Borderline: ?3.4-5.4 ? Normal: ?>5.4 Blood Blood / Unknown 07/09/2024 9 :05 AM EST 07/09/2024 9:06 AM EST Chaparrita Martin COMMUNITY RELATIONS COORDINATOR LAB - BLOOD DRAW Edited Resu lt - Final Performing Organization Address [facility]/ZIP Co de Phone Number [facility] [address] [address], [employer] [address] [address] * BLOOD COUNT COMPLETE AUTOMATED (07/09/2024 9:05 AM EST) Only the most recent of2 resultswithin the time period is included. [facility] WHITE BLOOD CELL COUNT 4.2 3.8 - 10.8 Thousand/ uL [facility] RED BLOOD CELL COUNT 4.23 3.80 - 5.10 Million/u L [facility] HEMOGLOBIN 12.6 11.7 - 15.5 g/dL [facility] HEMATOCRIT 38.0 35.0 - 45.0 % [facility] MCV 89.8 80.0 - 100.0 fL [facility] MCH 29.8 27.0 - 33.0 pg [facility] MCHC 33.2 32.0 - 36.0 g/dL [facility] Comment: For adults, a slight decrease in the calculated MCHC value (in the range of 30 to 32 g/dL) is most likely not clinically significant; however, it should be interpreted with caution in correlation with other red cell parameters and the patient's clinical condition. RDW 12.5 11.0 - 15.0 % [facility] PLATELET COUNT 313 140 - 400 Thousand/ uL [facility] MPV 9.7 7.5 - 12.5 fL [facility] Blood Blood / Unknown 07/09/2024 9 :05 AM EST 07/09/2024 9:06 AM EST Chaparrita Martin NP LAB - BLOOD DRAW Edited Resu lt - Final [facility] [address] [address], [employer] [facility] [address] [place] [address] * (ABNORMAL) LIPID PANEL (07/09/2024 9:05 AM EST) [facility] CHOLESTEROL, TOTAL 177 <200 mg/dL [facility] HDL CHOLESTEROL 59 > OR = 50 mg/dL [facility] TRIGLYCERIDES 73 <150 mg/dL [facility] LDL-CHOLESTEROL 102(H) 99 mg/dL (calc) [facility] Comment: Reference range: <100 Desirable range <100 mg/dL for primary prevention; ?? <70 mg/dL for patients with CHD or diabetic patients with > or = 2 CHD risk factors. LDL-C is now calculated using the Jason calculation, which is a validated novel method providing better accuracy than the Friedewald equation in the estimation of LDL-C. Sage AVALOS et al. MIAH. 2013;310(19): 6885-4070 (http://education.F[employer] Focus/faq/LKV230) CHOL/HDLC RATIO 3.0 <5.0 (calc) [facility] NON-HDL CHOLESTEROL 118 <130 mg/dL (calc) [facility] Comment: For patients with diabetes plus 1 major ASCVD risk factor, treating to a non-HDL-C goal of <100 mg/dL (LDL-C of <70 mg/dL) is considered a therapeutic option. Blood Blood / Unknown 07/09/2024 9 :05 AM EST 07/09/2024 9:06 AM EST Cahparrita Martin NP LAB - BLOOD DRAW Final Resul t [facility] [address] [place] [address], [employer] [address] [place] [phone] * COMPREHENSIVE METABOLIC PANEL (07/09/2024 9:05 AM EST) [facility] Signature GLUCOSE 96 65 - 99 mg/dL [facility] Comment: ?Fasting reference interval UREA NITROGEN (BUN) 12 7 - 25 mg/dL [facility] CREATININE (blood) 0.60 0.50 - 1.03 mg/dL [facility] EGFR 103 > OR = 60 mL/min/1. 73m2 [facility] BUN/CREATININE RATIO SEE NOTE: [facility] Comment: ?? Not Reported: BUN and Creatinine are within ?? reference range. ? SODIUM 140 135 - 146 mmol/L [facility] POTASSIUM 4.4 3.5 - 5.3 mmol/L [facility] CHLORIDE 105 98 - 110 mmol/L [facility] CARBON DIOXIDE 26 20 - 32 mmol/L [facility] CALCIUM 9.2 8.6 - 10.4 mg/dL [facility] PROTEIN, TOTAL 6.9 6.1 - 8.1 g/dL [facility] ALBUMIN 4.2 3.6 - 5.1 g/dL [employer] [place] [employer] GLOBULIN 2.7 1.9 - 3.7 g/dL (calc) [facility] ALBUMIN/GLOBULI N RATIO 1.6 1.0 - 2.5 (calc) [facility] BILIRUBIN, TOTAL 0.4 0.2 - 1.2 mg/dL [facility] ALKALINE PHOSPHATASE 97 37 - 153 U/L [employer] AST 20 10 - 35 U/L [facility] ALT 11 6 - 29 U/L [facility] Blood Blood / Unknown 07/09/2024 9 :05 AM EST 07/09/2024 9:06 AM EST Chaparrita Martin COMMUNITY RELATIONS COORDINATOR LAB - BLOOD DRAW Final Resul t [employer] [address] [address], [employer] [address] [address] * REFERRAL SCANNED DOCUMENT (07/04/2024 3:00 AM [...] EDT) 03/14/2023 3:00 AM EDT Telma Churchill DIPLOMATIC COURIER-C IMG MAMMO Final Re sult * (ABNORMAL) HEPATITIS A,B,C PANEL (09/08/2017 10:23 AM EDT) HEPATITIS B SURFACE ANTIBODY NEGATIVE NEGATIVE [facility] HEPATITIS B SURFACE ANTIGEN NEGATIVE NEGATIVE [facility] Comment: Over the counter supplements containing high doses of biotin may interfere with this assay. ??If interference is suspected, patients shoud be retested after refraining from biotin supplements for 72 hours. HEPATITIS C VIRUS DIAGNOSTIC NEGATIVE NEGATIVE [facility] HEPATITIS B CORE ANTIBODY NEGATIVE NEGATIVE [facility] HEPATITIS A ANTIBODY TOTAL POSITIVE(A) NEGATIVE [facility] Comment: Over the counter supplements containing high doses of biotin may interfere with this assay. ??If interference is suspected, patients shoud be retested after refraining from biotin supplements for 72 hours. Blood specimen (specimen) Blood / Unknown 09/08/2017 10:23 AM EDT 09/08/2017 10:40 AM EDT Narrative [facility] - 09/08/2017 1:01 PM EDT [facility] [address] [place] [address] PT ID [id number] ORD# [id number] Carmen Demarco PA-C LAB - BLOOD DRAW Edited R esult - Final [address] [address], * HIV-1 & HIV-2 ANTIBODIES (09/08/2017 10:23 AM EDT) HIV 1 AND 2 ANTIBODY SCREEN NEGATIVE NEGATIVE [facility] Comment: This assay is a 4th generation [...] 10:23 AM EDT 09/08/2017 10:40 AM EDT [facility] - 09/08/2017 1:30 PM EDT [facility] [address] [place] [address] PT ID [id number] ORD# [id number] Carmen Demarco PA-C LAB - BLOOD DRAW Final Re sult [facility] [address] [place] [address], from Last 3 Months or Most Recently Relevant to Health Maintenance Insurance [facility] DENTAL [facility] SAFETY NET DENTAL [employer] [address] [employer] Care Teams Hspt Tutor Relationship Specialty Start Date End Date Lexa Cronin MD [address] [place] [id number] PCP - General Family Medicine, Physician 02/01/23
--- OUTSIDE RECORDS SUMMARY | 2024-07-17 12:54 | XMS_ITS | Encounter Summary ---
Author Organization [facility] Address [address] [place] [address] Care Team Providers Care Talent Consultant Name Role Phone Lexa Cronin MD Primary Care Provider [phone] Encounter Details Date Type Department Care Team (Latest Contact Info) Description 07/04/2024 3:00 PM EST Telemedicine Visit [facility] [address] [place] [phone] Chaparrita Martin NP [address] [place], [place] [id number] Hair loss (Primary Dx); Other fatigue; Numbness [...] identified myself as Chaparrita Martin NP from [facility]. It was conducted in a private space to protect HIPPA sensitive information. Precautions were takento provide confidentiality and security and patient was made aware of privacy considerations. The patients location was obtained and is Pts home The patient was notified that the services were being provided from [facility]). The patient was notified how they can see a clinician in-person in the event of an emergency or if otherwise needed. Visit START TIME 3p END TIME 315p Sawmill Manager used during visit? No Technical issues [...] 0.3 mg/0.3 mL pen injector PRESCRIBED BY FORENSIC SCIENTIST[address] [id number] 1 mL 0 FLUoxetine (PROZAC) 20 mg [...] LIPID PANEL (07/09/2024 9:05 AM EST) Pathologist [facility] CHOLESTEROL, TOTAL 177 <200 mg/dL [facility] HDL CHOLESTEROL 59 > OR = 50 mg/dL [facility] TRIGLYCERIDES 73 <150 mg/dL [facility] LDL-CHOLESTEROL 102(H) 99 mg/dL (calc) [facility] Comment: Reference range: <100 Desirable range <100 mg/dL for primary prevention; ?? <70 mg/dL for patients with CHD or diabetic patients with > or = 2 CHD risk factors. LDL-C is now calculated using the Sage-Chyna calculation, which is a validated novel method providing better accuracy than the Friedewald equation in the estimation of LDL-C. Sage SS et al. MIAH. 2013;310(19): 9434-7199 (http://education.[employer]faq/KFK178) CHOL/HDLC RATIO 3.0 <5.0 (calc) [facility] NON-HDL CHOLESTEROL 118 <130 mg/dL (calc) [facility] Comment: For patients with diabetes plus 1 major ASCVD risk factor, treating to a non-HDL-C goal of <100 mg/dL (LDL-C of <70 mg/dL) is considered a therapeutic option. Blood Blood / Unknown 07/09/2024 9 :05 AM EST 07/09/2024 9:06 AM EST Chaparrita Martin NP LAB - BLOOD DRAW Final Resul t [facility] [address] [address], [facility] [address] [place] [address] * COMPREHENSIVE METABOLIC PANEL (07/09/2024 9:05 AM EST) GLUCOSE 96 65 - 99 mg/dL [facility] Comment: ?Fasting reference interval UREA NITROGEN (BUN) 12 7 - 25 mg/dL [facility] CREATININE (blood) 0.60 0.50 - 1.03 mg/dL [facility] EGFR 103 > OR = 60 mL/min/1. 73m2 [facility] BUN/CREATININE RATIO SEE NOTE: [facility] Comment: ?? Not Reported: BUN and Creatinine are within ?? reference range. ? SODIUM 140 135 - 146 mmol/L [facility] POTASSIUM 4.4 3.5 - 5.3 mmol/L [facility] CHLORIDE 105 98 - 110 mmol/L [facility] CARBON DIOXIDE 26 20 - 32 mmol/L [facility] [place] [facility] CALCIUM 9.2 8.6 - 10.4 mg/dL [facility] PROTEIN, TOTAL 6.9 6.1 - 8.1 g/dL [facility] ALBUMIN 4.2 3.6 - 5.1 g/dL [facility] GLOBULIN 2.7 1.9 - 3.7 g/dL (calc) [facility] ALBUMIN/GLOBULI N RATIO 1.6 1.0 - 2.5 (calc) [facility] BILIRUBIN, TOTAL 0.4 0.2 - 1.2 mg/dL [facility] ALKALINE PHOSPHATASE 97 37 - 153 U/L [facility] AST 20 10 - 35 U/L [facility] ALT 11 6 - 29 U/L [facility] Blood Blood / Unknown 07/09/2024 9 :05 AM EST 07/09/2024 9:06 AM EST us Chaparrita Martin NP LAB - BLOOD DRAW Final Resul t Performing Organization Address [facility]/ZIP Co de Phone Number [facility] [address] [address], [facility] [address] [place] [address] * BLOOD COUNT COMPLETE AUTOMATED (07/09/2024 9:05 AM EST) Pathologist [facility] WHITE BLOOD CELL COUNT 4.2 3.8 - 10.8 Thousand/ uL [facility] RED BLOOD CELL COUNT 4.23 3.80 - 5.10 Million/u L [facility] HEMOGLOBIN 12.6 11.7 - 15.5 g/dL [facility] HEMATOCRIT 38.0 35.0 - 45.0 % [facility] MCV 89.8 80.0 - 100.0 fL [facility] MCH 29.8 27.0 - 33.0 pg [facility] MCHC 33.2 32.0 - 36.0 g/dL [facility] Comment: For adults, a slight decrease in the calculated MCHC value (in the range of 30 to 32 g/dL) is most likely not clinically significant; however, it should be interpreted with caution in correlation with other red cell parameters and the patient's clinical condition. RDW 12.5 11.0 - 15.0 % [facility] PLATELET COUNT 313 140 - 400 Thousand/ uL [facility] MPV 9.7 7.5 - 12.5 fL [facility] Blood Blood / Unknown 07/09/2024 9 :05 AM EST 07/09/2024 9:06 AM EST us Chaparrita Martin NP LAB - BLOOD DRAW Edited Resu lt - Final [facility] [address] [address], [facility] [address] [place] [address] * IRON, TIBC, FERRITIN PANEL (07/09/2024 9:05 AM EST) Pathologist [facility] FERRITIN 74 16 - 232 ng/mL [facility] IRON, TOTAL 68 45 - 160 mcg/dL [facility] IRON BINDING CAPACITY 263 250 - 450 mcg/dL (calc) [facility] % SATURATION 26 16 - 45 % (calc) [facility] Blood Blood / Unknown 07/09/2024 9 :05 AM EST 07/09/2024 9:06 AM EST us Chaparrita Martin NP LAB - BLOOD DRAW Final Resul t Performing Organization Address City/State/[facility] Co de Phone Number [facility] [address] [address], [facility] [address] [place] [address] * VITAMIN B12 & FOLATE (07/09/2024 9:05 AM EST) [facility] VITAMIN B12 379 200 - 1,100 pg/mL [facility] Comment: Please Note: Although the reference range for vitamin B12 is 200-1100 pg/mL, it has been reported that between 5 and 10% of patients with values between 200 and 400 pg/mL may experience neuropsychiatric and hematologic abnormalities due to occult B12 deficiency; less than 1% of patients with values above 400 pg/mL will have symptoms. FOLATE, SERUM 9.7 5.5 ng/mL [facility] Comment: ? Reference Range ? Low: ? <3.4 ? Borderline: ?3.4-5.4 ? Normal: ?>5.4 Blood Blood / Unknown 07/09/2024 9 :05 AM EST 07/09/2024 9:06 AM EST Chaparrita Martin MARINE RIGGER LAB - BLOOD DRAW Edited Resu lt - Final Performing Organization Address [facility] Co de Phone Number [facility] [address] [address], [place] [address] [address] * THYROID CASCADING REFLEX PANEL (07/09/2024 9:05 AM EST) TSH 1.29 0.40 - 4.50 mIU/L [facility] Blood Blood / Unknown 07/09/2024 9 :05 AM EST 07/09/2024 9:06 AM EST Chaparrita Martin MARINE RIGGER LAB - BLOOD DRAW Edited Resu lt - Final Performing Organization Address [facility] de Phone Number [facility] [address] [address], [place] [address] [address] documented in this encounter Visit Diagnoses Diagnosis Hair loss- Primary Alopecia, unspecified Other fatigue Numbness of fingers Disturbance of skin sensation SOB (shortness of breath) Shortness of breath Atypical chest pain Other chest pain Mixed hyperlipidemia documented in this encounter Additional Health Concerns Assessment Noted Time PHQ-9 Depression Total Score: 17 08/16/ 024 11:43 AM PDT documented as of this encounter Care Teams Talent Consultant Relationship Specialty Start Date End Date Lexa Cronin MD [address] [place] [address] PCP - General Family Medicine, Physician 02/01/23 documented as of this encounter
[2024-07-17 17:42] LABS: MANUAL DIFF FLAG NO
[2024-07-17 18:08] LABS: Basophils Absolute Auto 0.1 X10*3/uL (0.0-0.2); Eosinophils Absolute Auto 0.2 X10*3/uL (0.0-0.4); Hematocrit 39.9 % (37.0-47.0); Hemoglobin 12.8 g/dl (12.0-16.0); Imm Gran Abs Auto 0.02 X10*3/uL (0.00-0.03); Imm Gran Pct Auto 0.4 % (0.0-0.4); Lymphocytes Absolute Auto 1.8 X10*3/uL (1.2-4.9); Lymphocytes Percent Auto 37.4 % (20-40); Mean Corpuscular HGB Conc 32.1 g/dl (31.0-35.0); Mean Corpuscular Hemoglobin 29.7 pg (27.0-33.0); Mean Corpuscular Volume 92.6 fL (80.0-98.0); Mean Platelet Volume 9.5 fL (9.4-12.3); Monocytes Absolute Auto 0.4 X10*3/uL (0.1-1.2); Monocytes Percent Auto 7.5 % (2-11); Neutrophils Absolute Auto 2.3 x10*3/uL (2.0-8.3); Neutrophils Percent Auto 48.7 % (45-73); Platelet Count 341 X10*3/uL (160-400); Red Blood Count 4.31 X10*6/uL (4.20-5.50); Red Cell Distribution Width 12.9 % (11.0-16.0); White Blood Count 4.8 X10*3/uL (4.8-10.8)
[2024-07-17 18:10] LABS: Alanine Aminotransferase 20 U/L (0-31); Aspartate Amino Transferase 29 U/L (5-31); Estimated Glomerular Filt Rate > 60
== END 2024-07-17 10:09 | disposition home or self-care (01) ==
LOC: HO.HKASLDS 10:08
PROVIDERS: PCP Student in an Organized Health Care Education/Training Program; Visit Provider Internal Medicine Rheumatology
DX: M17.9 Osteoarthritis of knee, unspecified (principal); M77.00 Medial epicondylitis, unspecified elbow
CPT/HCPCS: 36415; 82565; 84450; 84460; 85025; 99212

== ENCOUNTER 2024-07-19 11:11 | Outpatient (REF) | payer MEDICAID, SELFPAY ==
--- NOTE | ~2024-07-19 | XR_ITS ---
CLINICAL HISTORY: M17.0 - Bilateral primary osteoarthritis of knee 2 view left knee Comparison: None Findings: No fractures or dislocations. There are moderate changes of osteoarthritis most pronounced in the medial compartment. No joint effusion. No radiopaque foreign body. IMPRESSION: 1. No acute findings. This document has been electronically signed by: Tommy Pan MD on 07/20/2024 07:33:30
--- NOTE | ~2024-07-19 | XR_ITS ---
CLINICAL HISTORY: M17.0 - Bilateral primary osteoarthritis of knee 2 view right knee Comparison: None Findings: No fractures or dislocations. Is loss of joint space height possibly related to osteoarthritis. No joint effusion. No radiopaque foreign body. IMPRESSION: 1. No acute findings. This document has been electronically signed by: Tommy Pan MD on 07/20/2024 07:37:35
--- OUTSIDE RECORDS SUMMARY | 2024-07-19 12:08 | XMS_ITS | Encounter Summary ---
Author Organization [facility] Address [address] [place] [address] Care Team Providers Care Individualized Education Plan Aide Name Role Phone Lexa Cronin MD Primary Care Provider [phone] Encounter Details Date Type Department Care Team (Latest Contact Info) Description 07/04/2024 3:00 PM EST Telemedicine Visit [facility] [address] [place] [phone] Chaparrita Ellison NP [address] [place], [place] [phone] Hair loss (Primary Dx); Other fatigue; Numbness [...] of this encounter Progress Notes * Chaparrita Ellison NP - 07/04/2024 7:33 PM EST Subjective: [...] identified myself as Chaparrita Martin NP from [facility]. It was conducted in a private space to protect HIPPA sensitive information. Precautions were takento provide confidentiality and security and patient was made aware of privacy considerations. The patients location was obtained and is Pts home The patient was notified that the services were being provided from [facility] [place] The patient was notified how they can see a clinician in-person in the event of an emergency or if otherwise needed. Visit START TIME 3p END TIME 315p Mechanist used during visit? No Technical issues for [...] 0.3 mg/0.3 mL pen injector PRESCRIBED BY FRONT END LOADER DRIVER[address] [id number] 1 mL 0 FLUoxetine (PROZAC) 20 mg [...] Notes * Result Encounter Note - Chaparrita Ellison NP - 07/10/2024 9:11 AM EST The [...] (ABNORMAL) LIPID PANEL (07/09/2024 9:05 AM EST) [facility] CHOLESTEROL, TOTAL 177 <200 mg/dL [facility] HDL CHOLESTEROL 59 > OR = 50 mg/dL [facility] TRIGLYCERIDES 73 <150 mg/dL [facility] LDL-CHOLESTEROL 102(H) 99 mg/dL (calc) [facility] Comment: Reference range: <100 Desirable range <100 mg/dL for primary prevention; ?? <70 mg/dL for patients with CHD or diabetic patients with > or = 2 CHD risk factors. LDL-C is now calculated using the Sage-Chyna calculation, which is a validated novel method providing better accuracy than the Friedewald equation in the estimation of LDL-C. Sage AVALOS et al. MIAH. 2013;310(19): 5488-0949 (http://education.[employer]/faq/TEW823) CHOL/HDLC RATIO 3.0 <5.0 (calc) [facility] NON-HDL CHOLESTEROL 118 <130 mg/dL (calc) [facility] Comment: For patients with diabetes plus 1 major ASCVD risk factor, treating to a non-HDL-C goal of <100 mg/dL (LDL-C of <70 mg/dL) is considered a therapeutic option. Blood Blood / Unknown 07/09/2024 9 :05 AM EST 07/09/2024 9:06 AM EST Chaparrita Ellison NP LAB - BLOOD DRAW Final Result [facility] [address] [address], [facility] [address] [place] [address] * COMPREHENSIVE METABOLIC PANEL (07/09/2024 9:05 AM EST) GLUCOSE 96 65 - 99 mg/dL [facility] Comment: ?Fasting reference interval UREA NITROGEN (BUN) 12 7 - 25 mg/dL [facility] CREATININE (blood) 0.60 0.50 - 1.03 mg/dL [facility] EGFR 103 > OR = 60 mL/min/1. 73m2 [facility] BUN/CREATININE RATIO SEE NOTE: [facility] Comment: ?? Not Reported: BUN and Creatinine are within ?? reference range. ? SODIUM 140 135 - 146 mmol/L [facility] POTASSIUM 4.4 3.5 - 5.3 mmol/L [facility] CHLORIDE 105 98 - 110 mmol/L [facility] CARBON DIOXIDE 26 20 - 32 mmol/L [facility] [place] [employer] CALCIUM 9.2 8.6 - 10.4 mg/dL [facility] PROTEIN, TOTAL 6.9 6.1 - 8.1 g/dL [facility] ALBUMIN 4.2 3.6 - 5.1 g/dL [facility] GLOBULIN 2.7 1.9 - 3.7 g/dL (calc) [facility] ALBUMIN/GLOBULI N RATIO 1.6 1.0 - 2.5 (calc) [facility] BILIRUBIN, TOTAL 0.4 0.2 - 1.2 mg/dL [facility] ALKALINE PHOSPHATASE 97 37 - 153 U/L [facility] AST 20 10 - 35 U/L [facility] ALT 11 6 - 29 U/L [facility] Blood Blood / Unknown 07/09/2024 9 :05 AM EST 07/09/2024 9:06 AM EST us Chaparrita Ellison NP LAB - BLOOD DRAW Final Result [facility] [address] [address], [employer] [address] [address] * BLOOD COUNT COMPLETE AUTOMATED (07/09/2024 9:05 AM EST) [facility] WHITE BLOOD CELL COUNT 4.2 3.8 - 10.8 Thousand/ uL [facility] RED BLOOD CELL COUNT 4.23 3.80 - 5.10 Million/u L [facility] HEMOGLOBIN 12.6 11.7 - 15.5 g/dL [facility] HEMATOCRIT 38.0 35.0 - 45.0 % [facility] MCV 89.8 80.0 - 100.0 fL [facility] MCH 29.8 27.0 - 33.0 pg [facility] MCHC 33.2 32.0 - 36.0 g/dL [facility] Comment: For adults, a slight decrease in the calculated MCHC value (in the range of 30 to 32 g/dL) is most likely not clinically significant; however, it should be interpreted with caution in correlation with other red cell parameters and the patient's clinical condition. RDW 12.5 11.0 - 15.0 % [facility] PLATELET COUNT 313 140 - 400 Thousand/ uL [facility] [place] [employer] MPV 9.7 7.5 - 12.5 fL [facility] Blood Blood / Unknown 07/09/2024 9 :05 AM EST 07/09/2024 9:06 AM EST us Chaparrita Ellison NP LAB - BLOOD DRAW Edited Resul t - Final [facility] [address] [address], [facility] [address] [place] [address] * IRON, TIBC, FERRITIN PANEL (07/09/2024 9:05 AM EST) [facility] FERRITIN 74 16 - 232 ng/mL [facility] IRON, TOTAL 68 45 - 160 mcg/dL [facility] IRON BINDING CAPACITY 263 250 - 450 mcg/dL (calc) [facility] % SATURATION 26 16 - 45 % (calc) [facility] Blood Blood / Unknown 07/09/2024 9 :05 AM EST 07/09/2024 9:06 AM EST us Chaparrita Ellison NP LAB - BLOOD DRAW Final Result [facility] Organization Address City/State/[facility] Co de Phone Number [facility] [address] [address], [facility] [facility] [address] [place] [address] * VITAMIN B12 & FOLATE (07/09/2024 9:05 AM EST) [facility] VITAMIN B12 379 200 - 1,100 pg/mL [facility] Comment: Please Note: Although the reference range for vitamin B12 is 200-1100 pg/mL, it has been reported that between 5 and 10% of patients with values between 200 and 400 pg/mL may experience neuropsychiatric and hematologic abnormalities due to occult B12 deficiency; less than 1% of patients with values above 400 pg/mL will have symptoms. FOLATE, SERUM 9.7 5.5 ng/mL [facility] Comment: ? Reference Range ? Low: ? <3.4 ? Borderline: ?3.4-5.4 ? Normal: ?>5.4 Blood Blood / Unknown 07/09/2024 9 :05 AM EST 07/09/2024 9:06 AM EST us Chaparrita Ellison NP LAB - BLOOD DRAW Edited Resul t - Final Performing Organization Address [facility] Co de Phone Number [facility] [address] [place] [address], [facility] [address] [address] * THYROID CASCADING REFLEX PANEL (07/09/2024 9:05 AM EST) TSH 1.29 0.40 - 4.50 mIU/L [facility] Blood Blood / Unknown 07/09/2024 9 :05 AM EST 07/09/2024 9:06 AM EST us Chaparrita Ellison NP LAB - BLOOD DRAW Edited Resul t - Final Performing Organization Address [facility] Co de Phone Number [facility] [address] [address], [facility] [address] [address] documented in this encounter Visit Diagnoses Diagnosis Hair loss- Primary Alopecia, unspecified Other fatigue Numbness of fingers Disturbance of skin sensation SOB (shortness of breath) Shortness of breath Atypical chest pain Other chest pain Mixed hyperlipidemia documented in this encounter Additional Health Concerns Assessment Noted Time PHQ-9 Depression Total Score: 17 024 11:43 AM PDT documented as of this encounter Care Teams Individualized Education Plan Aide Relationship Specialty Start Date End Date Lexa Cronin MD [address] [place] [address] PCP - General Family Medicine, Physician 02/01/23 documented as of this encounter
--- OUTSIDE RECORDS SUMMARY | 2024-07-19 12:08 | XMS_ITS | Clinical Summary ---
Author Organization 175 [facility] Address [address] [place] [address] Phone Care Team Providers Care Juice Mixer Name Role Phone David Williamson MD Primary Care Provider [phone] Allergies Active Allergy Reactions Criticality Noted Date [...] EST - 05/28/2024 3:35 PM EST Emergency [facility] Emergency [address] [place] [address] Influenza A (Primary Dx) Discharge Disposition: Home or Self Care 05/15/2024 8:45 AM EST Office Visit Pulmonolgy - [place] [address] [facility] [address] [place] [phone] Dereje Martinez MD Mild persistent asthma, unspecified [...] 9:45 AM EDT Office Visit Pulmonolgy - [place] [address] [facility] [address] [place] [phone] Dereje Martinez MD [address] [facility] [address] [place] [address] Health Maintenance Due Date Last Done Comments [...] Signed Date: 05/28/2024 14:35 ET Workstation ID: [id number] Transcribed By: Self Edit Transcribed Date: 05/28/2024 [...] Signed Date: 05/28/2024 14:35 ET Workstation ID: [id number] Transcribed By: Self Edit Transcribed Date: 05/28/2024 14:34 ET Jude WITT IMG XR PROCEDURES Final Result * (ABNORMAL) CBC auto differential (05/28/2024 1:08 PM EST) WBC 4.2(L) 4.8 - 10.8 K/[facility] 05/28/2024 1:29 PM [facility] RBC 4.80 3.80 - 4.80 M/mcL LAB HEMETOLOGY METHOD 05/28/2024 1:29 PM [facility] Hemoglobin 13.8 11.5 - 16.0 g/dL LAB HEMETOLOGY METHOD 05/28/2024 1:29 PM [facility] Hematocrit 42.6 35.0 - 47.0 % LAB HEMETOLOGY METHOD 05/28/2024 1:29 PM [facility] MCV 89.5 79.0 - 98.0 FL LAB HEMETOLOGY METHOD 05/28/2024 1:29 PM [facility] MCH 29.0 27.0 - 32.0 pcg LAB HEMETOLOGY METHOD 05/28/2024 1:29 PM [facility] MCHC 32.4 32.0 - 37.0 g/dL LAB HEMETOLOGY METHOD 05/28/2024 1:29 PM [facility] RDW 12.5 11.0 - 15.0 % LAB HEMETOLOGY METHOD 05/28/2024 1:29 PM [facility] Platelets 179 130 - 400 K/mcL LAB HEMETOLOGY METHOD 05/28/2024 1:29 PM [facility] MPV 9.6 7.0 - 11.0 FL LAB HEMETOLOGY METHOD 05/28/2024 1:29 PM [facility] NRBC 0.0 <1.0 % LAB HEMETOLOGY METHOD 05/28/2024 1:29 PM [facility] NRBC Absolute 0.00 <0.10 K/mcL LAB HEMETOLOGY METHOD 05/28/2024 1:29 PM [facility] Neutrophils Relative 51.1 % LAB HEMETOLOGY METHOD 05/28/2024 1:29 PM [facility] Lymphocytes Relative 28.5 % LAB HEMETOLOGY METHOD 05/28/2024 1:29 PM [facility] Monocytes Relative 18.8 % LAB HEMETOLOGY METHOD 05/28/2024 1:29 PM [facility] Eosinophils Relative 0.2 % LAB HEMETOLOGY METHOD 05/28/2024 1:29 PM [facility] Basophils Relative 0.7 % LAB HEMETOLOGY METHOD 05/28/2024 1:29 PM [facility] Immature Granulocytes Relative 0.7 % LAB HEMETOLOGY METHOD 05/28/2024 1:29 PM [facility] Neutrophils Absolute 2.15 1.50 - 7.00 K/mcL LAB HEMETOLOGY METHOD 05/28/2024 1:29 PM [facility] Lymphocytes Absolute 1.20 1.00 - 5.00 K/mcL LAB HEMETOLOGY METHOD 05/28/2024 1:29 PM [facility] Monocytes Absolute 0.79 0.20 - 1.00 K/mcL LAB HEMETOLOGY METHOD 05/28/2024 1:29 PM [facility] Eosinophils Absolute 0.01 0.00 - 0.50 K/mcL LAB HEMETOLOGY METHOD 05/28/2024 1:29 PM [facility] Basophils Absolute 0.03 0.00 - 0.20 K/mcL LAB HEMETOLOGY METHOD 05/28/2024 1:29 PM [facility] Immature Granulocytes Absolute 0.03 0.00 - 0.03 K/mcL LAB HEMETOLOGY METHOD 05/28/2024 1:29 PM [facility] Blood Venous blood specimen / Unknown Venipuncture / Unknown 05/28/2024 1:08 PM EST 05/28/2024 1:13 PM EST us Marcel Waddell MD LAB BLOOD ORDERABLES Final Res ult Performing Organization Address [facility] de Phone Number [facility] [address] [place] [address], [place] [phone] * Magnesium (05/28/2024 1:08 PM EST) Magnesium 2.3 1.9 - 2.6 mg/dL LAB CHEMISTRY METHOD 05/28/2024 1:46 PM EST [facility] Blood Venous blood specimen / Unknown Venipuncture / Unknown 05/28/2024 1:08 PM EST 05/28/2024 1:13 PM EST Marcel Waddell MD LAB BLOOD ORDERABLES Final Res ult Performing Organization Address [facility] de Phone Number [facility] [address] [place] [address], [place] [phone] * Lipase (05/28/2024 1:08 PM EST) Lipase 34 13 - 75 unit/L LAB CHEMISTRY METHOD 05/28/2024 1:46 PM EST [facility] Blood Venous blood specimen / Unknown Venipuncture / Unknown 05/28/2024 1:08 PM EST 05/28/2024 1:13 PM EST us Marcel Waddell MD LAB BLOOD ORDERABLES Final Res ult Performing Organization Address [facility] Co de Phone Number [facility] [address] [place] [address], [place] [phone] * (ABNORMAL) Comprehensive metabolic panel (05/28/2024 1:08 PM EST) Sodium 136 133 - 145 mmol/L LAB CHEMISTRY METHOD 05/28/2024 1:46 PM EST [facility] Potassium 3.6 3.5 - 5.5 mmol/L LAB CHEMISTRY METHOD 05/28/2024 1:46 PM [facility] Chloride 102 96 - 110 mmol/L LAB CHEMISTRY METHOD 05/28/2024 1:46 PM [facility] CO2 27 21 - 32 mmol/L LAB CHEMISTRY METHOD 05/28/2024 1:46 PM [facility] Anion Gap 7 3 - 11 LAB CHEMISTRY METHOD 05/28/2024 1:46 PM [facility] Glucose 104(H) 70 - 100 mg/dL LAB CHEMISTRY METHOD 05/28/2024 1:46 PM [facility] BUN 11 5 - 25 mg/dL LAB CHEMISTRY METHOD 05/28/2024 1:46 PM [facility] Creatinine 0.93 0.50 - 1.10 mg/dL LAB CHEMISTRY METHOD 05/28/2024 1:46 PM [facility] eGFR 71 >=60 mL/min/1. 73m2 LAB CHEMISTRY METHOD 05/28/2024 1:46 PM [facility] Comment:Calculation based on the??Chronic Kidney Disease Epidemiology Collaboration (CKD-EPI) equation refit??without adjustment for race. BUN/Creatinine Ratio 11.8 LAB CHEMISTRY METHOD 05/28/2024 1:46 PM [facility] Calcium 9.2 8.5 - 10.5 mg/dL LAB CHEMISTRY METHOD 05/28/2024 1:46 PM [facility] AST (SGOT) 25 10 - 42 unit/L LAB CHEMISTRY METHOD 05/28/2024 1:46 PM [facility] ALT (SGPT) 20 10 - 60 unit/L LAB CHEMISTRY METHOD 05/28/2024 1:46 PM [facility] Alkaline Phosphatase 79 42 - 121 unit/L LAB CHEMISTRY METHOD 05/28/2024 1:46 PM [facility] Total Protein 7.4 6.0 - 8.0 g/dL LAB CHEMISTRY METHOD 05/28/2024 1:46 PM [facility] Albumin 3.8 3.2 - 5.0 g/dL LAB CHEMISTRY METHOD 05/28/2024 1:46 PM EST [facility] Total Bilirubin 0.2 0.0 - 1.4 mg/dL LAB CHEMISTRY METHOD 05/28/2024 1:46 PM EST [facility] Blood Venous blood specimen / Unknown Venipuncture / Unknown 05/28/2024 1:08 PM EST 05/28/2024 1:13 PM EST us Marcel Waddell MD LAB BLOOD ORDERABLES Final Res ult [facility] [address] [place] [address], [place] [phone] * (ABNORMAL) Respiratory virus panel molecular study (05/28/2024 1:07 PM EST) Adenovirus Detection by PCR Not Detected Not Detected LAB MICROBIOLOGY METHOD 05/28/2024 2:34 PM [facility] Influenza B PCR Not Detected Not Detected LAB MICROBIOLOGY METHOD 05/28/2024 2:34 PM [facility] Coronavirus 229E Not Detected Not Detected LAB MICROBIOLOGY METHOD 05/28/2024 2:34 PM [facility] Coronavirus HKU1 Not Detected Not Detected LAB MICROBIOLOGY METHOD 05/28/2024 2:34 PM [facility] Coronavirus OC43 Not Detected Not Detected LAB MICROBIOLOGY METHOD 05/28/2024 2:34 PM [facility] Coronavirus NL63 Not Detected Not Detected LAB MICROBIOLOGY METHOD 05/28/2024 2:34 PM [facility] Parainfluenza Virus 1 Not Detected Not Detected LAB MICROBIOLOGY METHOD 05/28/2024 2:34 PM [facility] Parainfluenza Virus 2 Not Detected Not Detected LAB MICROBIOLOGY METHOD 05/28/2024 2:34 PM [facility] Parainfluenza Virus 3 Not Detected Not Detected LAB MICROBIOLOGY METHOD 05/28/2024 2:34 PM [facility] Parainfluenza Virus 4 Not Detected Not Detected LAB MICROBIOLOGY METHOD 05/28/2024 2:34 PM [facility] RSV PCR Not Detected Not Detected LAB MICROBIOLOGY METHOD 05/28/2024 2:34 PM [facility] Human Metapneumovirus A and B Not Detected Not Detected LAB MICROBIOLOGY METHOD 05/28/2024 2:34 PM [facility] Rhinovirus/Entero virus Not Detected Not Detected LAB MICROBIOLOGY METHOD 05/28/2024 2:34 PM [facility] Bordetella pertussis Not Detected Not Detected LAB MICROBIOLOGY METHOD 05/28/2024 2:34 PM [facility] Bordetella parapertussis Not Detected Not Detected LAB MICROBIOLOGY METHOD 05/28/2024 2:34 PM [facility] Influenza A H3 Detected(A ) Not Detected LAB MICROBIOLOGY METHOD 05/28/2024 2:34 PM [facility] Mycoplasma pneumo by PCR Not Detected Not Detected LAB MICROBIOLOGY METHOD 05/28/2024 2:34 PM [facility] Chlamydia pneumoniae Not Detected Not Detected LAB MICROBIOLOGY METHOD 05/28/2024 2:34 PM [facility] SARS COV-2 Not Detected Not Detected LAB MICROBIOLOGY METHOD 05/28/2024 2:34 PM [facility] Swab Both anterior nares / Unknown Non-blood Collection / Unknown 05/28/2024 1:07 PM EST 05/28/2024 1:13 PM [facility] - 05/28/2024 2:34 PM EST Testing was performed using the Blipe Respiratory Pathogen PCR Assay. All results must [...] ERABLES Edited Result - Final [facility] [address] [place] [address], * Lipid panel (12/08/2022) Triglycerides 0 mg/dL Comment:no interpretation Cholesterol 0 mg/dL Comment:no interpretation HDL 0 mg/dL Comment:no interpretation LDL Cholesterol 0 mg/dL Comment:no interpretation Blood Venous blood specimen / Unknown Historical Provider LAB BLOOD ORDERABLES Flor l Result from Last 3 Months or Most Recently Relevant to Health Maintenance Insurance MEDICAID - [place] Care Teams Juice Mixer Relationship Specialty Start Date End Date David Williamson MD [address] [place] [address] PCP - General Internal Medicine 09/21/17
--- OUTSIDE RECORDS SUMMARY | 2024-07-19 12:08 | XMS_ITS | Clinical Summary ---
Author Organization [facility] Address [address] [place] [address] Care Team Providers Care Outreach Manager Name Role Phone Lexa Cronin MD Primary Care Provider [phone] Source Comments PLEASE NOTE, if this patient [...] mL pen injectorIndicatio ns:Seafood allergy PRESCRIBED BY [employer] FL[employer] ENGINEER[address] [phone] 1 mL 020 Active miscellaneous medical supply [...] (BMI) of 38.0 to 38.9 in adult ([facility]),Chronic right-sided low back pain with [...] be different from the original. Community Partner: [employer] [facility] Jerardo Metzger Autoclave Operator phone [phone] E mail: [email or web address] Problem Noted Date Diagnosed Date Alopecia 07/09/2024 [...] measuring 4mm b/l 01/10/19 - seen at [facility] c/o R flank pain and epigastric [...] (05/11/2016): x-rays lumbar spine done 05/10/16 at [facility] = mild disc level degenerative changes at L1-L2 but otherwise normal. OA (osteoarthritis) of both knees Overview (08/17/2023): [facility] and receiving injections, every 3 months Anxiety and depression Overview (08/17/2023): Hx suicide attempts, insomnia ON PSYCH/BH for medication and therapy on [address] Therapy every week Psych every 3 months Moderate persistent asthma Overview (08/17/2023): Pulm Dr. Martinez at [address] Every 1-2 months Migraine without aura and wi thout status migrainosus, not intractable Overview (08/17/2023): Neuro f/u at [facility], every 3 to 4 months 04/24/17 - [facility] Neuro F/U: -- Continue psychotherapy and [...] 023 Overview (05/07/2019): 01/10/19 - seen at [facility] c/o R flank pain and epigastric [...] left 1st toe. 11/27/18 - Seen at [facility] for foot pain after fall. R ankle xray: neg. R foot xray: possible nondisplaced fx through the proximal phalanx of the R 4th toe. 12/14/18 - Seen at [facility] Ed c/o anterior R foot pain s/p fall 2 days ago. XRAY R foot: healing, nondisplaced Fx of the proximal phalanx of the 4th digit. Plantar fasciitis, right 01/01/2015 Overview (12/03/2018): X-ray 02/08/15 at [facility] = inferior calcaneal osteophytes, mildly increased since 12/26/13. S/p surgery right ankle 01/12/15 (peroneal tendon repair, tarsal tunnel release and plantar fasciotomy) done at [facility]. Seen by [facility] 11/06/15 for 2nd opinion on pain and advised stretching to improve gastroc flexibility. 08/08/18 - Seen by Neuro Dr. Sosa for persistent sharp and needle-like pain in R foot s/p fall in ~2014. Dx: chronic pain syndrome. F/U at earliest convenience with all meds. Calcaneal spur of both feet 12/23/2014 12/30/2022 Overview (12/03/2018): X-rays 12/21/14 at [facility] = moderate sized inferior calcaneal osteophyte. X-ray 02/08/15 at [facility] = inferior calcaneal osteophytes, mildly increased since 12/26/13. Hemorrhoids 07/14/2014 12/30/2022 Microcytic anemia 11/04/2011 12/30/2022 Allergic rhinitis due to allergen 12/30/2022 Overview (04/16/2013): F/U [employer]. Encounters Date Type Department Care Team Description 07/04/2024 3:00 PM EST Telemedicine Visit [address] [phone] Chaparrita Ellison NP Hair loss (Primary Dx); Other fatigue; Numbness of fingers; SOB (shortness of breath); Atypical chest pain; Mixed hyperlipidemia 05/30/2024 Interim Notes [address] [address] Xochitl Schuster 05/30/2024 Interim Notes [address] [phone] Khloe Hernandez 04/24/2024 Interim Notes [address] [phone] Lexa Cronin MD Screening mammogram for breast [...] 08/17/2023 , 05/08/2023, 11/24/2022, Additional history exists [id number] ( season) 2024 08/17/2023, 05/17/2021, 11/14/2020, Additional [...] REFERRAL SCANNED DOCUMENT 05/13/2024 3:00 AM EST HISTORIC MAMMOGRAM 03/14/2023 3: [...] included. FERRITIN 74 16 - 232 ng/mL [facility] IRON, TOTAL 68 45 - 160 mcg/dL [facility] IRON BINDING CAPACITY 263 250 - 450 mcg/dL (calc) [facility] % SATURATION 26 16 - 45 % (calc) [facility] Blood Blood / Unknown 07/09/2024 9 :05 AM EST 07/09/2024 9:06 AM EST us Chaparrita Ellison NP LAB - BLOOD DRAW Final Result [facility] [address] [place] [phone], [facility] [address] [place] [phone] * THYROID CASCADING REFLEX PANEL (07/09/2024 9:05 AM EST) TSH 1.29 0.40 - 4.50 mIU/L [facility] Blood Blood / Unknown 07/09/2024 9 :05 AM EST 07/09/2024 9:06 AM EST us Chaparrita Ellison NP LAB - BLOOD DRAW Edited Resul t - Final Performing Organization Address [facility]/ZIP Co de Phone Number [employer] [place] [facility] [address] [address], [employer] [facility] [address] [place] [address] * VITAMIN B12 & FOLATE (07/09/2024 9:05 AM EST) [facility] VITAMIN B12 379 200 - 1,100 pg/mL [facility] Comment: Please Note: Although the reference range for vitamin B12 is 200-1100 pg/mL, it has been reported that between 5 and 10% of patients with values between 200 and 400 pg/mL may experience neuropsychiatric and hematologic abnormalities due to occult B12 deficiency; less than 1% of patients with values above 400 pg/mL will have symptoms. FOLATE, SERUM 9.7 5.5 ng/mL [facility] Comment: ? Reference Range ? Low: ? <3.4 ? Borderline: ?3.4-5.4 ? Normal: ?>5.4 Blood Blood / Unknown 07/09/2024 9 :05 AM EST 07/09/2024 9:06 AM EST Chaparrita Ellison NP LAB - BLOOD DRAW Edited Resul t - Final Performing Organization Address [facility] Co de Phone Number [employer] [facility] [address] [address], [employer] [facility] [address] [place] [address] * BLOOD COUNT COMPLETE AUTOMATED (07/09/2024 9:05 AM EST) Only the most recent of2 resultswithin the time period is included. [facility] WHITE BLOOD CELL COUNT 4.2 3.8 - 10.8 Thousand/ uL [facility] RED BLOOD CELL COUNT 4.23 3.80 - 5.10 Million/u L [facility] HEMOGLOBIN 12.6 11.7 - 15.5 g/dL [facility] HEMATOCRIT 38.0 35.0 - 45.0 % [facility] MCV 89.8 80.0 - 100.0 fL [facility] MCH 29.8 27.0 - 33.0 pg [facility] MCHC 33.2 32.0 - 36.0 g/dL [facility] Comment: For adults, a slight decrease in the calculated MCHC value (in the range of 30 to 32 g/dL) is most likely not clinically significant; however, it should be interpreted with caution in correlation with other red cell parameters and the patient's clinical condition. RDW 12.5 11.0 - 15.0 % [facility] PLATELET COUNT 313 140 - 400 Thousand/ uL [facility] MPV 9.7 7.5 - 12.5 fL [facility] Blood Blood / Unknown 07/09/2024 9 :05 AM EST 07/09/2024 9:06 AM EST Chaparrita Ellison LAN ANALYST LAB - BLOOD DRAW Edited Resul t - Final [facility] [address] [address], [facility] [address] [address] * (ABNORMAL) LIPID PANEL (07/09/2024 9:05 AM EST) [facility] CHOLESTEROL, TOTAL 177 <200 mg/dL [facility] HDL CHOLESTEROL 59 > OR = 50 mg/dL [facility] TRIGLYCERIDES 73 <150 mg/dL [facility] LDL-CHOLESTEROL 102(H) 99 mg/dL (calc) [facility] Comment: Reference range: <100 Desirable range <100 mg/dL for primary prevention; ?? <70 mg/dL for patients with CHD or diabetic patients with > or = 2 CHD risk factors. LDL-C is now calculated using the Sage-Clemente calculation, which is a validated novel method providing better accuracy than the Friedewald equation in the estimation of LDL-C. Sage SS et al. MIAH. 2013;310(19): 9997-3659 (http://education.[employer]/faq/HWW773) CHOL/HDLC RATIO 3.0 <5.0 (calc) [facility] NON-HDL CHOLESTEROL 118 <130 mg/dL (calc) [facility] Comment: For patients with diabetes plus 1 major ASCVD risk factor, treating to a non-HDL-C goal of <100 mg/dL (LDL-C of <70 mg/dL) is considered a therapeutic option. Blood Blood / Unknown 07/09/2024 9 :05 AM EST 07/09/2024 9:06 AM EST Chaparrita Ellison NP LAB - BLOOD DRAW Final Result [facility] [address] [place] [id number], [facility] [address] [place] [phone] * COMPREHENSIVE METABOLIC PANEL (07/09/2024 9:05 AM EST) GLUCOSE 96 65 - 99 mg/dL [facility] Comment: ?Fasting reference interval UREA NITROGEN (BUN) 12 7 - 25 mg/dL [facility] CREATININE (blood) 0.60 0.50 - 1.03 mg/dL [facility] EGFR 103 > OR = 60 mL/min/1. 73m2 [facility] BUN/CREATININE RATIO SEE NOTE: [facility] Comment: ?? Not Reported: BUN and Creatinine are within ?? reference range. ? SODIUM 140 135 - 146 mmol/L [facility] POTASSIUM 4.4 3.5 - 5.3 mmol/L [facility] CHLORIDE 105 98 - 110 mmol/L [facility] CARBON DIOXIDE 26 20 - 32 mmol/L [facility] CALCIUM 9.2 8.6 - 10.4 mg/dL [facility] PROTEIN, TOTAL 6.9 6.1 - 8.1 g/dL [facility] ALBUMIN 4.2 3.6 - 5.1 g/dL [facility] GLOBULIN 2.7 1.9 - 3.7 g/dL (calc) [employer] [facility] ALBUMIN/GLOBULI N RATIO 1.6 1.0 - 2.5 (calc) [employer] [facility] BILIRUBIN, TOTAL 0.4 0.2 - 1.2 mg/dL [employer] [facility] ALKALINE PHOSPHATASE 97 37 - 153 U/L [facility] AST 20 10 - 35 U/L [employer] [facility] ALT 11 6 - 29 U/L [employer] [facility] Blood Blood / Unknown 07/09/2024 9 :05 AM EST 07/09/2024 9:06 AM EST Chaparrita Ellison NP LAB - BLOOD DRAW Final Result [employer] [address] [address], [employer] [address] [address] * REFERRAL SCANNED DOCUMENT (07/04/2024 3:00 AM EST) Only the most recent of2 resultswithin the time period is included. 07/04/2024 3:[address] [facility] Provider Default SCAN REFERRAL Final Resu lt * IMAGING SCANNED DOCUMENT (05/28/2024 3:00 AM EST) 05/28/2024 3:00 AM EST David Williamson MD SCAN IMAGING Final Result * HISTORIC MAMMOGRAM (03/14/2023 3:00 AM EDT) 03/14/2023 3:00 AM EDT [facility] PATELP-C IMG MAMMO Final Re sult * (ABNORMAL) HEPATITIS A,B,C PANEL (09/08/2017 10:23 AM EDT) HEPATITIS B SURFACE ANTIBODY NEGATIVE NEGATIVE [facility] HEPATITIS B SURFACE ANTIGEN NEGATIVE NEGATIVE [facility] Comment: Over the counter supplements containing high doses of biotin may interfere with this assay. ??If interference is suspected, patients shoud be retested after refraining from biotin supplements for 72 hours. HEPATITIS C VIRUS DIAGNOSTIC NEGATIVE NEGATIVE [facility] HEPATITIS B CORE ANTIBODY NEGATIVE NEGATIVE [facility] HEPATITIS A ANTIBODY TOTAL POSITIVE(A) NEGATIVE [facility] Comment: Over the counter supplements containing high doses of biotin may interfere with this assay. ??If interference is suspected, patients shoud be retested after refraining from biotin supplements for 72 hours. Blood specimen (specimen) Blood / Unknown 09/08/2017 10:23 AM EDT 09/08/2017 10:40 AM EDT [facility] - 09/08/2017 1:01 PM EDT [facility] [address] [place] [address] [place] ID [id number] ORD# [id number] Carmen Demarco PA-C LAB - BLOOD DRAW Edited R esult - Final [address] [address], * HIV-1 & HIV-2 ANTIBODIES (09/08/2017 10:23 AM EDT) [facility] HIV 1 AND 2 ANTIBODY SCREEN NEGATIVE NEGATIVE [facility] Comment: This assay is a 4th generation [...] AM EDT 09/08/2017 10:40 AM EDT Narrative [facility] - 09/08/2017 1:30 PM EDT [facility] [address] [place] [address] [place] [id number] ORD# [id number] Carmen Demarco PA-C LAB - BLOOD DRAW Final Re sult [facility] [address] [place] [address], from Last 3 Months or Most Recently Relevant to Health Maintenance Insurance [facility] SAFETY NET D[facility]AL [facility] Your Policy Manager [facility] Medicaid Address: [address] [place] [address] Care Teams Outreach Manager Relationship Specialty Start Date End Date Lexa Cronin MD [facility] [place] [address] PCP - General Family Medicine, Physician 02/01/23
== END 2024-07-19 11:12 | disposition home or self-care (01) ==
LOC: HO.XRAY 11:11
PROVIDERS: PCP Student in an Organized Health Care Education/Training Program; Visit Provider Internal Medicine Rheumatology
DX: M17.0 Bilateral primary osteoarthritis of knee (principal)
CPT/HCPCS: 73560

== ENCOUNTER → 2024-07-19 11:17 | Outpatient (BNV) | payer MEDICAID, SELFPAY | PROVIDERS: PCP Student in an Organized Health Care Education/Training Program; Visit Provider Specialist | DX: M17.0 Bilateral primary osteoarthritis of knee (principal) | CPT/HCPCS: 73560 ==

== ENCOUNTER 2024-10-23 12:32 | Outpatient (AMB) | payer MEDICAID, SELFPAY ==
[2024-10-23 12:35] VITALS: BP 124/70; PULSE 91; O2SAT 96; BMI 38.8
--- NOTE | 2024-10-23 12:35 | MHC.OFFVIS ---
Vital Signs 10/23/24 12:35 Height 4 ft 11 in Weight 192 lb 0.362 oz BMI 38.8 BP 124/70 Blood Pressure Location Lt brachial Position Sitting Pulse 91 Pulse Source Pulse Oximeter Pulse Oximetry (%) 96 Oxygen Delivery Method Room Air Intake Visit Reasons: follow up Intake Note: Patient presents follow up arthritis, patient states there is more pain than before. Accompanied by: Daughter Allergies amoxicillin [AMOXICILLIN] Allergy (Intermediate, Verified 10/23/24 12:39) HIVES clarithromycin [CLARITHROMYCIN] Allergy (Intermediate, Verified 10/23/24 12:39) HIVES clindamycin [CLINDAMYCIN] Allergy (Intermediate, Verified 10/23/24 12:39) HIVES ibuprofen [IBUPROFEN] Allergy (Intermediate, Verified 10/23/24 12:39) HIVES HPI HPI follow up: Details: She is using duloxetine with benefit. Left knee pain is constant. Improvement of right knee pain with hinged brace. Diclofenac gel has been helpful. Physical Exam Vital Signs: BMI result Body Mass Index 38.8 Const Other: General: Comfortable Skin: No lesions seen MSK: Tender to palpate medial and lateral joint lines of bilateral knees. Bilateral crepitus present. Knee flexion 90 degrees bilateral. Stanford's cyst not present. Tender to palpate medial epicondyles without soft tissue swelling noted. No pain with resistant wrist flexion. Tender right 3rd PIP with synovitis present Assessment & Plan Assessment & Plan (1) Knee osteoarthritis: Comment: Right knee pain is better controlled. She is experiencing constant left knee pain. Rheumatology history: bilateral knee pain R> L. she had benefit with right knee intra-articular cortisone injection last visit but does not want to proceed with another injection due to fear of needles. Code(s): M17.9 - Osteoarthritis of knee, unspecified Category: Medical Qualifiers: Osteoarthritis type: primary Plan: Increase duloxetine 60 mg daily. Continue Tylenol 1000 mg every 6 hours. Discussed importance of limiting Tylenol to not more than 4000 mg in a day Continue diclofenac gel 1% applied to affected area every 4-6 hours as needed AAOS knee strengthening program given to patient. I suggested she try yoga with her grandchildren I am avoiding oral NSAIDs as patient has had hives on ibuprofen and was told to avoid all NSAIDs. Continue to wear Right knee hinged brace Prescription for left knee hinged brace given to patient Encouraged weight loss Return to clinic in 3 months (2) Medial epicondylitis: Comment: Right worse than left. Clinical diagnosis. Discussed diagnosis and management. Code(s): M77.00 - Medial epicondylitis, unspecified elbow Category: Medical Qualifiers: Laterality: unspecified laterality Qualified Code(s): M77.00 - Medial epicondylitis, unspecified elbow Plan: She is unable to do physical therapy at this time due to her schedule with taking care of 6 grandchildren. She will do exercises that I have printed for patient Bilateral elbow support bands we will be purchase on [employer] because insurance will not cover a prescription Apply ice to affected area twice a day Avoid applying elbow on hard surfaces Apply diclofenac gel 1% to affected area every 4-6 hours as needed Return to clinic in 3 months (3) Bilateral hand pain: Comment: Suspect osteoarthritis Code(s): M79.641 - Pain in right hand; M79.642 - Pain in left hand Category: Medical Plan: Problem hand x-rays ordered Apply diclofenac gel 1% to affected area every 4-6 hours as needed Return to clinic in 3 months Orders: Orders XR hand LT min 3V Today M79.641 - Pain in right hand, M79.642 - Pain in left hand XR hand RT min 3V Today M79.641 - Pain in right hand, M79.642 - Pain in left hand Medications: New duloxetine 60 mg PO DAILY 60 caps 11RF Knee brace As directed Left knee hinged brace Dx: knee osteoarthritis 1 ea 0RF Changed From diclofenac sodium 1% apply to single elbow, wrist or hand; for hand includes palm/fingers/back of hand 2 grams topical QID To diclofenac sodium 1% apply to affected area every 4-6 hours PRN joint pain 2 grams topical QID 100 grams 5RF Discontinued duloxetine Discontinued Reason: Doctor's Order 30 mg PO DAILY 30 caps 5RF Coding Level of Care Code Est Pt Level 4 (78402) Complex EM visit Add On G2211 Diagnoses Knee osteoarthritis M17.9 Osteoarthritis type: primary Medial epicondylitis of elbow, unspecified laterality M77.00 Laterality: unspecified laterality Bilateral hand pain M79.641; M79.642
--- OUTSIDE RECORDS SUMMARY | 2024-10-23 13:19 | XMS_ITS | Clinical Summary ---
Author Organization [facility] Address [address] [place] [address] Care Team Providers Care Gas Engine Repairer Name Role Phone Lexa Cronin MD Primary Care Provider [phone] Source Comments PLEASE NOTE, if this patient [...] mL pen injectorIndicatio ns:Seafood allergy PRESCRIBED BY [employer] [phone] 1 mL 020 Active miscellaneous medical supply [...] knees, unspecified osteoarthritis type,Moderate persistent asthma without complication ([facility]),Class 2 severe obesity due to excess calories with serious comorbidity and body mass index (BMI) of 38.0 to 38.9 in adult ([facility]),Chronic right-sided low back pain with right-sided sciatica,Fibromya lgia,Calcaneal spur of both feet,Plantar fasciitis, right,Tendinitis of left rotator cuff by miscellaneous route daily Electric Scooter. Use daily. Lifetime use. 1 Each 023 Active VENTOLIN HFA 90 mcg/actuation inhalerIndication s:Moderate persistent asthma without complication ([facility]) Inhale 2 Puffs into the lungs every [...] mcg/actuation inhalerIndication s:Moderate persistent asthma without complication ([facility]) INHALE 1 PUFF INTO THE LUNGS 4 TIMES DAILY. 4 g 1 023 Active albuterol (PROVENTIL) 2.5 mg /3 mL (0.083 %) nebulizer solutionIndicatio ns:Moderate persistent asthma without complication ([facility]) QID as needed for wheezing, SOB 75 mL 1 023 Active blood pressure monitorIndication s:Essential hypertension BLOOD PRESSURE MONITOR. Check blood pressure once daily in sitting position. Dx: I10. Length: lifetime 1 Kit 023 Active omeprazole (PRILOSEC) [address] capsuleIndication s:Gastroesophagea l reflux disease, unspecified whether esophagitis present TAKE 1 CAPSULE BY MOUTH EVERY DAY IN THE MORNING BEFORE BREAKFAST 90 Capsule 024 Active fluticasone (FLONASE) 50 mcg/actuation nasal sprayIndications: COVID-19,Chronic rhinitis Place 2 Sprays in both nostrils once daily 48 g 1 024 Active fluticasone propion-salmetero L (ADVAIR DISKUS) 500-50 mcg/dose diskus inhalerIndication s:Moderate persistent asthma without complication ([facility]) INHALE 1 PUFF INTO THE LUNGS TWICE A DAY 60 Each 3 024 Active methocarbamoL (ROBAXIN) 500 mg tabletIndications :Cervicalgia,Fibr omyalgia TAKE 1 TABLET BY MOUTH THREE TIMES A DAY 180 Tablet 025 Active loratadine (CLARITIN) 10 mg tablet TAKE 1 TABLET BY MOUTH ONCE DAILY NEEDED FOR ALLERGIES 90 Tablet 1 025 Active acetaminophen (TYLENOL 8 HOUR) 650 mg CR tabletIndications :Viral upper respiratory tract infection Take 1 Tablet by mouth every 8 (eight) hours as needed for pain 90 Tablet 1 025 Active lidocaine (LIDODERM) 5 % patch PLACE 1 PATCH ONTO THE SKIN ONCE DAILY (EVERY 24 HOURS) 90 Patch 1 025 Active meloxicam (MOBIC) 15 mg tabletIndications :Left knee pain, unspecified chronicity,Left ankle pain, unspecified chronicity,Pain of right middle finger Take 1 Tablet by mouth once daily 90 Tablet 025 Active gabapentin (NEURONTIN) 100 mg capsuleIndication s:Neuropathic pain Take 1 Capsule by mouth nightly at bedtime as needed for other reason (pain) 30 Capsule 3 025 Active diclofenac sodium (VOLTAREN) 1 % gel APPLY TOPICALLY TWICE A DAY 500 g 1 025 Active pravastatin (PRAVACHOL) 10 mg tabletIndications :Problems with swallowing and mastication,Mixed hyperlipidemia Take 1 Tablet by mouth nightly at bedtime. 90 Tablet 1 025 Active prazosin (MINIPRESS) 1 mg capsuleIndication s:Problems with swallowing and mastication,Anxie ty TAKE 1 CAPSULE BY MOUTH EVERYDAY AT BEDTIME. 90 Capsule 1 025 Active finasteride (PROSCAR) 5 mg tabletIndications :Problems with swallowing and mastication,Alope kristie Take 1 Tablet by mouth once daily. 30 Tablet 3 025 Active minoxidiL (LONITEN) 2.5 mg tabletIndications :Problems with swallowing and mastication,Alope kristie Take 1 Tablet by mouth once daily. 30 Tablet 3 025 Active meloxicam (MOBIC) 15 mg tablet Take 1 Tablet by mouth once daily 90 Tablet 023 2024 Discontinued(R eorder (E-Cancel Not Sent)) diclofenac sodium (VOLTAREN) 1 % gel Apply topically 2 (two) times daily 450 g 1 024 2024 Discontinued pravastatin (PRAVACHOL) 10 mg tabletIndications :Mixed hyperlipidemia Take 1 Tablet by mouth nightly at bedtime 90 Tablet 1 024 2024 Discontinued(R eorder (E-Cancel Not Sent)) prazosin (MINIPRESS) 1 mg capsule TAKE 1 CAPSULE BY MOUTH EVERYDAY AT BEDTIME 90 Capsule 1 025 2024 Discontinued(R eorder (E-Cancel Not Sent)) minoxidiL (LONITEN) 2.5 mg tabletIndications :Alopecia Take 1 Tablet by mouth once daily 30 Tablet 3 025 2024 Discontinued(R eorder (E-Cancel Not Sent)) finasteride (PROSCAR) 5 mg tabletIndications :Alopecia Take 1 Tablet by mouth once daily 30 Tablet 3 025 2024 Discontinued(R eorder (E-Cancel Not Sent)) Active Problems Patient Care Coordination No te Formatting of this note migh t be different from the original. Community Partner: [facility] Jerardo Metzger Category Consultant phone [phone] E mail: [email or web address] Problem Noted Date Diagnosed Date Alopecia 07/09/2024 [...] 03/06/2020 Sensorineural hearing loss (SNHL), bilateral Overview (10/07/2024): 09/2024: [facility] Audiology advised to wear hearing aids 04/10/18 - Seen by Audiology: Pt had [...] (05/11/2016): x-rays lumbar spine done 05/10/16 at [facility] = mild disc level degenerative changes at L1-L2 but otherwise normal. OA (osteoarthritis) of both knees Overview (10/07/2024): [facility] and receiving injections, every 3 months 09/2024: Per UC - Patient calls the office today due to left sided knee pain, left sided ankle pain and right middle finger pain. PMHx significant for Fibromyalgia, neuropathic pain and OA of both knees. She reports that the pain of the left knee, left ankle and right finger started about 3 or 4 days ago. No specific injury or trauma. She is on Gabapentin, Cymbalta, Tylenol, Robaxin TID regularly. She also tried Diclofenac gel on her knee, ankle and finger, without relief. Meloxicam provided Anxiety and depression Overview (08/17/2023): Hx suicide attempts, insomnia ON PSYCH/BH for medication and therapy on [address] Therapy every week Psych every 3 months Moderate persistent asthma ([facility]) Overview (08/17/2023): Pulm Dr. Martinez at [address] Every 1-2 months Migraine without aura and wi thout status migrainosus, not intractable Overview (08/17/2023): Neuro f/u at [facility], every 3 to 4 months 04/24/17 - [facility] Neuro F/U: -- Continue psychotherapy and [...] left 1st toe. 11/27/18 - Seen at [facility] for foot pain after fall. R [...] right 01/01/2015 Overview (12/03/2018): X-ray 02/08/15 at [facility] = inferior calcaneal osteophytes, mildly increased since 12/26/13. S/p surgery right ankle 01/12/15 (peroneal tendon repair, tarsal tunnel release and plantar fasciotomy) done at [facility]. Seen by [facility] 11/06/15 for 2nd opinion on pain and advised stretching to improve gastroc flexibility. 08/08/18 - Seen by Neuro Dr. Sosa for persistent sharp and needle-like pain in R foot s/p fall in ~2014. Dx: chronic pain syndrome. F/U at earliest convenience with all meds. Calcaneal spur of both feet 12/23/2014 12/30/2022 Overview (12/03/2018): X-rays 12/21/14 at [facility] = moderate sized inferior calcaneal osteophyte. X-ray 02/08/15 at [facility] = inferior calcaneal osteophytes, mildly increased since 12/26/13. Hemorrhoids 07/14/2014 12/30/2022 Microcytic anemia 11/04/2011 12/30/2022 Allergic rhinitis due to allergen 12/30/2022 Overview (04/16/2013): F/U [employer]. Encounters Date Type Department Care Team Description 10/23/2024 10:20 AM EDT Office Visit [address] [phone] Lenore Anders FNP Problems with swallowing and mastication (Primary Dx); Scattered fibroglandular tissue density of right breast on mammography; Mixed hyperlipidemia; Alopecia; Anxiety 09/24/2024 3:20 PM EDT Telemedicine Visit [address] [address] Lucien Robertson PA-C Left knee pain, unspecified chronicity (Primary Dx); Left ankle pain, unspecified chronicity; Pain of right middle finger 09/16/2024 2:40 PM EDT Telemedicine Visit [address] [address] Markel Sandhu PA-C Sensorineural hearing loss (SNHL), bilateral (Primary Dx) from Last 3 Months Immunizations Immunization Administration Dates Next Due Flu, Cell Culture based, Pre servative Free, 6m+, Flucelvax 04/27/2018,04/27/2018,03/29/2017 Flu, Preservative Free 07/29/2021,01/26/2017,10/2014 Hep B, Adult/Adol (ENERGIX/RECOMBIVAX) 08/23/2000,06/07/2000 Hep B,adult,adjuvanted (HEPLISAV) 08/28/2023 INFLUENZA, SEASONAL, INJECTABLE 06/27/19 17,03/16/2012,06/01/2011,2008,03/11/2008,04/24/2003 PFIZER COVID [...] Sign Reading Time Taken Comments Blood Pressure 110/70 10/23/2024 10:19 AM EDT Pulse 95 10/23/2024 10:19 AM EDT Temperature 36.7 ??C (98.1 ??F) 10/23/2024 10:19 AM E DT Respiratory Rate 16 10/23/2024 10:19 AM EDT Oxygen Saturation 97% 10/23/2024 10:19 AM EDT Inhaled Oxygen Concentration - - Weight 87.1 kg (192 lb 1.6 oz) 10/23/2024 10:19 AM EDT Height 150.7 cm (4' 11.33 ) 08/17/2023 11:02 AM EDT Body Mass Index 38.37 08/17/2023 11:02 AM EDT Plan of Treatment Upcoming Encounters Date Type Department Care Team (Late st Contact Info) Description 11/11/2024 11:00 AM EDT Office Visit [address] [phone] Lexa Cronin MD [address] [place] [id number] Health Maintenance Due Date Last Done Comments Anxiety Screening 1965 10/23/2024 HPV Screening 1965 Pap + HPV 1965 CT Colonography 2010 FIT/gFOBT 2010 Fecal DNA 2010 Flexible Sigmoidoscopy 2010 Cervical Cancer Screening 09/28/2012 Pap Smear 09/28/2012 09/28/2009 [id number] ( season) 2024 08/17/2023, 05/17/2021, 11/14/2020, Additional history exists Imm-Influenza (#1) 2024 07/29/2021, 1 06/27/2017 (Managed by Outside Provider), 04/27/2018, Additional history exists Alcohol and Drug Screen 06/05/2024 08/17/19, 12/30/2022, 06/14/2022, Additional history exists Annual Wellness (Adult): Indicated (All Coverage) 08/16/2024 08/17/2023, 07/10/2018, 01/26/2017, Additional history exists Depression Monitoring 01/23/2025 10/23/2024 , 08/17/2023, 05/08/2023, Additional history exists Breast Cancer Screening (Mammogram) 03/14/2025 03/14/2023, 09/21/2020, 09/14/2020, Additional history exists Diabetes Screening 07/09/2025 07/09/2024, 1 07/29/2023, 08/17/2023, Additional history exists Lipid Screening 07/09/2025 07/09/2024, 08/03, 12/08/2022, Additional history exists Tobacco Screening 09/16/2025 10/23/2024, 12/14/2022 Colonoscopy 11/30/2025 12/01/2015 Colorectal Cancer Screening 11/30/2025 [...] Procedure Name Priority Date/Time Associated Diagnosis Comments REFERRAL SCANNED DOCUMENT 09/16/2024 3:00 AM EDT OTHER ORDERS SCANNED DOCUMENT 08/22/2024 3:00 AM EDT OTHER ORDERS SCANNED DOCUMENT 08/22/2024 3:00 AM EDT OTHER ORDERS SCANNED DOCUMENT 08/14/2024 3:00 AM EDT COMPREHENSIVE METABOLIC PANEL Routine 07/09/2024 9:05 AM EST Hair loss Other fatigue Numbness of fingers SOB (shortness of breath) Atypical chest pain LIPID PANEL Routine 07/09/2024 9:05 AM EST Mixed hyperlipidemia HISTORIC MAMMOGRAM 03/14/2023 3: 00 AM EDT ANTIBODY HIV-1&HIV-2 SINGLE RESULT Routine 09/08/2017 10:23 AM EDT Screening for HIV without presence of risk factors HEPATITIS A,B,C PANEL Routine 09/08/2017 10:23 AM EDT Need for hepatitis C screening test from Last 3 Months or Most Recently Relevant to Health Maintenance Results * REFERRAL SCANNED DOCUMENT (09/16/2024 3:00 AM EDT) 09/16/2024 3:00 AM EDT us Lexa Cronin MD SCAN REFERRAL Final Result * OTHER ORDERS SCANNED DOCUMENT (08/22/2024 3:00 AM EDT) Only the most recent of3 resultswithin the time period is included. 08/22/2024 3:00 AM EDT us Lexa Cronin MD SCAN OTHER ORDERS Final Result * (ABNORMAL) LIPID PANEL (07/09/2024 9:05 AM EST) CHOLESTEROL, TOTAL 177 <200 mg/dL [facility] HDL CHOLESTEROL 59 > OR = 50 mg/dL [facility] TRIGLYCERIDES 73 <150 mg/dL [facility] LDL-CHOLESTEROL 102(H) 99 mg/dL (calc) [facility] Comment: Reference range: <100 Desirable range <100 mg/dL for primary prevention; ?? <70 mg/dL for patients with CHD or diabetic patients with > or = 2 CHD risk factors. LDL-C is now calculated using the Sage-Chyna calculation, which is a validated novel method providing better accuracy than the Friedewald equation in the estimation of LDL-C. Sage SS et al. MIAH. 2013;310(19): 2245-2826 (http://education.[employer]/faq/LBS465) CHOL/HDLC RATIO 3.0 <5.0 (calc) [facility] NON-HDL CHOLESTEROL 118 <130 mg/dL (calc) [facility] Comment: For patients with diabetes plus 1 major ASCVD risk factor, treating to a non-HDL-C goal of <100 mg/dL (LDL-C of <70 mg/dL) is considered a therapeutic option. Blood Blood / Unknown 07/09/2024 9 :05 AM EST 07/09/2024 9:06 AM EST us Chaparrita Martin NP LAB - BLOOD DRAW Final Resul t [facility] [address] [address], [facility] [address] [place] [address] * COMPREHENSIVE METABOLIC PANEL (07/09/2024 9:05 AM EST) GLUCOSE 96 65 - 99 mg/dL [facility] Comment: ?Fasting reference interval UREA NITROGEN (BUN) 12 7 - 25 mg/dL [facility] CREATININE (blood) 0.60 0.50 - 1.03 mg/dL [facility] EGFR 103 > OR = 60 mL/min/1. 73m2 [facility] [facility] BUN/CREATININE RATIO SEE NOTE: [facility] Comment: ?? Not Reported: BUN and Creatinine are within ?? reference range. ? SODIUM 140 135 - 146 mmol/L [facility] POTASSIUM 4.4 3.5 - 5.3 mmol/L [facility] CHLORIDE 105 98 - 110 mmol/L [facility] CARBON DIOXIDE 26 20 - 32 mmol/L [facility] CALCIUM 9.2 8.6 - 10.4 mg/dL [facility] PROTEIN, TOTAL 6.9 6.1 - 8.1 g/dL [facility] ALBUMIN 4.2 3.6 - 5.1 g/dL [facility] GLOBULIN 2.7 1.9 - 3.7 g/dL (calc) [facility] ALBUMIN/GLOBULI N RATIO 1.6 1.0 - 2.5 (calc) [facility] [facility] BILIRUBIN, TOTAL 0.4 0.2 - 1.2 mg/dL [facility] ALKALINE PHOSPHATASE 97 37 - 153 U/L [facility] AST 20 10 - 35 U/L [employer] [facility] ALT 11 6 - 29 U/L [facility] Blood Blood / Unknown 07/09/2024 9 :05 AM EST 07/09/2024 9:06 AM EST Chaparrita Martin DIRECTOR DATABASE LAB - BLOOD DRAW Final Resul t [facility] [address] [address], [facility] [address] [address] * HISTORIC MAMMOGRAM (03/14/2023 3:00 AM EDT) 03/14/2023 3:00 AM EDT Telma Churchill ATTENDANT CHILD ACTIVITY-C IMG MAMMO Final Re sult * (ABNORMAL) [...] AM EDT 09/08/2017 10:40 AM EDT Narrative [facility] - 09/08/2017 1:01 PM EDT [employer] [address] [place] [address] [place] [id number] ORD# [id number] Carmen Demarco PA-C LAB - BLOOD DRAW Edited R esult - Final Performing Organization Address City/[facility]/ZIP Co de Phone Number [facility] [address] [place] [address], [place] [phone] * HIV-1 & HIV-2 ANTIBODIES (09/08/2017 10:23 AM EDT) [facility] HIV 1 AND 2 ANTIBODY SCREEN NEGATIVE [...] 10:23 AM EDT 09/08/2017 10:40 AM EDT [facility] - 09/08/2017 1:30 PM EDT [address] [address] [place] [id number] ORD# [id number] Carmen Demarco PA-C LAB - BLOOD DRAW Final Re sult Performing Organization Address [facility] Co de Phone Number [address] [address], from Last 3 Months or Most Recently Relevant to Health Maintenance Insurance [facility] NET DENTAL [employer] [address] [employer] Care Teams Gas Engine Repairer Relationship Specialty Start Date End Date Lexa Cronin MD [facility] [place] [address] PCP - General Family Medicine, Physician 02/01/23
--- OUTSIDE RECORDS SUMMARY | 2024-10-23 13:19 | XMS_ITS | Clinical Summary ---
Author Organization 175 [facility] Address [address] [place] [address] Phone Care Team Providers Care [employer] Name Role Phone David Williamson MD Primary Care Provider [phone] Allergies Active Allergy Reactions Criticality Noted Date Comments Amoxicillin 01/17/2011 Clindamycin 01/17/2011 Erythromycin 01/17/2011 Ibuprofen 01/17/2011 Shellfish Containing Products 2016 Medications acetaminophen (TYLENOL) 500 mg tablet Take 2 Tablets by mouth every 6 hours as needed. 2 Active BABY ASPIRIN ORAL Take by [...] 1 each 12 4 05/15/20 25 Active albuterol 2.5 mg /3 mL (0.083 %) nebulizer solution Take 3 mL (2.5 mg total) by nebulization every 4 (four) hours if needed for wheezing. 300 mL 11 5 08/13/19 26 Active Active Problems Problem Noted Date Diagnosed Date Obstructive sleep apnea syndrome in adult 2016 Arthritis 07/03/2012 Immunizations Name Administration Dates Next Due [facility] SARS-CoV-2 COVID-19, mRNA, LNP-S, preservative free 05/17/2021 [...] 9:45 AM EDT Office Visit Pulmonolgy - [place] [address] [facility] [address] [place] [id number] Dereje Martinez MD [address] [facility] [address] [place] [address] Health Maintenance Due Date Last Done Comments Breast Cancer Screening 1965 Cervical Cancer Screening: Pap Smear 1986 Colorectal Cancer Screening: Colonoscopy 05/14/2022 Hepatitis C Screening 05/14/2022 Social Influencers of Health Screening 05/14/2022 COVID-19 Vaccine ( season) 2024 08/17/2023, 05/17/2021, 11/14/2020, Additional history exists Depression Screening 08/16/2024 08/17/2023 Influenza Vaccine (Season Ended) 2025 07/29/2021, 04/27/2018, 03/29/2017, Additional history exists Hypertension/CHF/CAD Annual BMP Blood Test 05/28/2025 05/28/2024, 08/17/2023, 12/08/2022 Cholesterol Screening (Lipid Panel) 08/16/2028 08/17/2023, 08/17/2023, 12/08/2022, Additional history exists DTaP,Tdap,and Td Vaccines (3 - Td or Tdap) 08/16/2033 08/17/2023, 03/22/2013 RSV Immunization Adult Patients (1 - 1-dose 75+ series) 2040 HIV [...] age to complete this topic Meningococcal B Vaccine Aged Out No l onger eligible based on patient's age to complete this topic RSV Immunization Patients Under 20 months Aged Out No longer eligible based on patient's age to complete this topic Varicella Vaccines Aged Out No longer eligible based on patient's age to complete this topic Procedures Procedure Name Priority Date/Time Associated Diagnosis Comments COMPREHENSIVE METABOLIC PANEL STAT 05/28/2024 1:08 PM EST LIPID PANEL Routine 12/08/2022 from Last 3 Months or Most Recently Relevant to Health Maintenance Results * (ABNORMAL) Comprehensive metabolic panel (05/28/2024 1:08 PM EST) Sodium 136 133 - 145 mmol/L LAB CHEMISTRY METHOD 05/28/2024 1:46 PM [facility] Potassium 3.6 3.5 - 5.5 mmol/L LAB CHEMISTRY METHOD 05/28/2024 1:46 PM [facility] Chloride 102 96 - 110 mmol/L LAB CHEMISTRY METHOD 05/28/2024 1:46 PM [facility] CO2 27 21 - 32 mmol/L LAB CHEMISTRY METHOD 05/28/2024 1:46 PM [facility] Anion Gap 7 3 - 11 LAB CHEMISTRY METHOD 05/28/2024 1:46 PM [facility] Glucose 104(H) 70 - 100 mg/dL LAB CHEMISTRY METHOD 05/28/2024 1:46 PM [facility] BUN 11 5 - 25 mg/dL LAB CHEMISTRY METHOD 05/28/2024 1:46 PM [facility] Creatinine 0.93 0.50 - 1.10 mg/dL LAB CHEMISTRY METHOD 05/28/2024 1:46 PM [facility] eGFR 71 >=60 mL/min/1. 73m2 LAB CHEMISTRY METHOD 05/28/2024 1:46 PM [facility] Comment:Calculation based on the??Chronic Kidney Disease Epidemiology Collaboration (CKD-EPI) equation refit??without adjustment for race. BUN/Creatinine Ratio 11.8 LAB CHEMISTRY METHOD 05/28/2024 1:46 PM [facility] Calcium 9.2 8.5 - 10.5 mg/dL LAB CHEMISTRY METHOD 05/28/2024 1:46 PM [facility] AST (SGOT) 25 10 - 42 unit/L LAB CHEMISTRY METHOD 05/28/2024 1:46 PM [facility] ALT (SGPT) 20 10 - 60 unit/L LAB CHEMISTRY METHOD 05/28/2024 1:46 PM [facility] Alkaline Phosphatase 79 42 - 121 unit/L LAB CHEMISTRY METHOD 05/28/2024 1:46 PM [facility] Total Protein 7.4 6.0 - 8.0 g/dL LAB CHEMISTRY METHOD 05/28/2024 1:46 PM [facility] Albumin 3.8 3.2 - 5.0 g/dL LAB CHEMISTRY METHOD 05/28/2024 1:46 PM [facility] Total Bilirubin 0.2 0.0 - 1.4 mg/dL LAB CHEMISTRY METHOD 05/28/2024 1:46 PM [facility] Blood Venous blood specimen / Unknown Venipuncture / Unknown 05/28/2024 1:08 PM EST 05/28/2024 1:13 PM EST us Marcel Waddell MD LAB BLOOD ORDERABLES Final Res ult [facility] [address] [place] [address], * Lipid panel (12/08/2022) Triglycerides 0 mg/dL Comment:no interpretation Cholesterol 0 mg/dL Comment:no interpretation HDL 0 mg/dL Comment:no interpretation LDL Cholesterol 0 mg/dL Comment:no interpretation Blood Venous blood specimen / Unknown us Historical Provider LAB BLOOD ORDERABLES Flor l Result from Last 3 Months or Most Recently Relevant to Health Maintenance Insurance MEDICAID - [place] Care Teams Police Captain [employer] Relationship Specialty Start Date End Date David Williamson MD [address] [place] [phone] PCP - General Internal Medicine 09/21/17
--- OUTSIDE RECORDS SUMMARY | 2024-10-23 13:19 | XMS_ITS | Encounter Summary ---
Author Organization [facility] Address [address] [place] [address] Care Team Providers Care Juvenile Justice Specialist Name Role Phone Lexa Cronin MD Primary Care Provider [phone] Reason for Referral * (Routine) - New Request Specialty Diagnoses / Procedures Referred By Leti landeros Referred To Contact Diagnoses Problems with swallowing and mastication Procedures RADIOLOGIC EXAM SWALLOW FUNCTION CONTRAST STUDY Lenore Anders FNP [address] [place] [address] Phone: tel: fax: Referral ID Status Reason Start Date Expiration Date V isits Requested Visits Authorized [id number] New Request Other 10/23/2024 10/23/2025 1 1 Reason for Visit * Reason Comments Cough Encounter Details Date Type Department Care Team (Latest Contact Info) Description 10/23/2024 10:20 AM EDT Office Visit [address] [address] Lenore Anders FNP [facility] [place] [address] Problems with swallowing and mastication (Primary Dx); Scattered fibroglandular tissue density of right breast on mammography; Mixed hyperlipidemia; Alopecia; Anxiety Social History Tobacco Use Types Packs/Day Years [...] AM PST documented as of this encounter Last Filed Vital Signs Vital Sign Reading [...] 1.6 oz) 10/23/2024 10:19 AM EDT Height - - Body Mass Index 38.37 08/17/2023 11:02 AM EDT documented in this encounter Plan of Treatment Upcoming Encounters Date Type Department Care Team (Late st Contact Info) Description 11/11/2024 11:00 AM EDT Office Visit [facility] [address] [place] [address] Lexa Cronin MD [address] [place] [address] Scheduled Orders Name Type Priority Associated Diagnoses Orde r Schedule RADIOLOGIC EXAM SWALLOW FUNCTION CONTRAST STUDY Imaging Routine Problems with swallowing and mastication Ordered: 10/23/2024 BLOOD COUNT COMPLETE AUTO&AUTO DIFRNTL WBC Routine Lab Routine Problems with swallowing and mastication Ordered: 10/23/2024 COMPREHENSIVE METABOLIC PANEL Routine Lab Routine Problems with swallowing and mastication Ordered: 10/23/2024 TSH W/RFLX FREE T4 Routine Lab Routine Problems with swallowing and mastication Ordered: 10/23/2024 US--RIGHT BREAST COMPLETE Imaging Routine Problems with swallowing and mastication Scattered fibroglandular tissue density of right breast on mammography Ordered: 10/23/2024 documented as of this encounter Visit Diagnoses Diagnosis Problems with swallowing and mastication- Primary Scattered fibroglandular tissue density of right breast on mammography Mixed hyperlipidemia Alopecia Anxiety Anxiety state, unspecified documented in this encounter Additional Health Concerns Assessment Noted Time PHQ-9 Depression Total Score: 17 025 10:15 AM PDT documented as of this encounter Care Teams Juvenile Justice Specialist Relationship Specialty Start Date End Date Lexa Cronin MD [address] [place] [address] PCP - General Family Medicine, Physician 02/01/23 documented as of this encounter
== END 2024-10-23 13:20 | disposition home or self-care (01) ==
LOC: HO.RHES 12:33
PROVIDERS: PCP Student in an Organized Health Care Education/Training Program; Visit Provider Internal Medicine Rheumatology
DX: M17.9 Osteoarthritis of knee, unspecified (principal); M77.00 Medial epicondylitis, unspecified elbow; M79.641 Pain in right hand; M79.642 Pain in left hand
CPT/HCPCS: 99214

== ENCOUNTER → 2024-10-23 12:32 | Outpatient (BNVA) | payer MEDICAID, SELFPAY | PROVIDERS: PCP Student in an Organized Health Care Education/Training Program; Visit Provider Internal Medicine Rheumatology | DX: M17.0 Bilateral primary osteoarthritis of knee (principal); M77.02 Medial epicondylitis, left elbow; M77.01 Medial epicondylitis, right elbow; M79.641 Pain in right hand; M79.642 Pain in left hand | CPT/HCPCS: 99212 ==

== ENCOUNTER 2024-10-25 11:24 | Outpatient (REF) | payer MEDICAID, SELFPAY ==
--- NOTE | ~2024-10-25 | XR_ITS ---
EXAMINATION: XR HAND, LEFT CLINICAL INFORMATION: Pain in left hand. COMPARISON: None available. TECHNIQUE: PA, lateral, and oblique views of the left hand. FINDINGS: The carpal bones are intact. There is normal alignment between the carpal bones. Distal radius and ulna are intact. The metacarpals are intact. The phalanges are intact with normal alignment. Mild asymmetric joint space narrowing in the middle and distal interphalangeal joints of the digits. No lytic or blastic lesions. No subcutaneous emphysema. No metallic or radiopaque foreign body. XR/XR hand LT min 3V IMPRESSION: Mild osteoarthritis/degenerative changes. No acute fracture or dislocation. Electronically signed by: Davonte Chavarria MD 10/25/2024 12:27 PM EDT
--- NOTE | ~2024-10-25 | XR_ITS ---
EXAMINATION: XR HAND, RIGHT CLINICAL INFORMATION: M79.641 - Pain in right hand COMPARISON: None available. TECHNIQUE: PA, lateral, and oblique views of the right hand. FINDINGS: The carpal bones are intact. The there is normal alignment between the carpal bones. The metacarpals are intact. The phalanges are intact with normal alignment. Mild asymmetric joint space narrowing in the distal and middle interphalangeal joints of the digits. Distal radius and ulna are intact. No metallic or radiopaque foreign body. No subcutaneous emphysema. XR/XR hand RT min 3V IMPRESSION: Mild osteoarthritis/degenerative changes without acute fracture or dislocation. Electronically signed by: Davonte Chavarria MD 10/25/2024 12:26 PM EDT
== END 2024-10-25 11:25 | disposition home or self-care (01) ==
LOC: HO.HMGCX 11:24
PROVIDERS: PCP Student in an Organized Health Care Education/Training Program; Visit Provider Internal Medicine Rheumatology
DX: M79.641 Pain in right hand (principal); M79.642 Pain in left hand
CPT/HCPCS: 73130

== ENCOUNTER → 2024-10-25 11:29 | Outpatient (BNV) | payer MEDICAID, SELFPAY | PROVIDERS: PCP Student in an Organized Health Care Education/Training Program; Visit Provider Radiology Diagnostic Radiology | DX: M79.641 Pain in right hand (principal); M79.642 Pain in left hand | CPT/HCPCS: 73130 ==

== ENCOUNTER 2025-01-30 09:59 | Outpatient (AMB) | payer MEDICAID, SELFPAY ==
[2025-01-30 10:02] VITALS: BP 130/80; BMI 37.6
--- NOTE | 2025-01-30 10:02 | MHC.OFFVIS ---
Vital Signs 01/30/25 10:02 Height 4 ft 11 in Weight 186 lb 4.65 oz BMI 37.6 BP 130/80 Blood Pressure Location Rt brachial Position Sitting Intake Visit Reasons: 3 months Intake Note: Patient presents follow up arthritis. Accompanied by: Self / Same As Patient Allergies amoxicillin (AMOXICILLIN) Allergy (Intermediate, Verified 01/30/25 10:02) HIVES clarithromycin (CLARITHROMYCIN) Allergy (Intermediate, Verified 01/30/25 10:02) HIVES clindamycin (CLINDAMYCIN) Allergy (Intermediate, Verified 01/30/25 10:02) HIVES ibuprofen (IBUPROFEN) Allergy (Intermediate, Verified 01/30/25 10:02) HIVES HPI HPI 3 months: Details: Well. She has minimal knee pain when going up and downstairs. She was placed on Lyrica 50 mg twice a day, which she recently started with benefit. PCP prescribed Lyrica. She stopped taking duloxetine as patient was on fluoxetine for depression management. Physical Exam Vital Signs: Last Vital Signs BP 130/80 01/30/25 10:02 BMI result Body Mass Index 37.6 Const Other: General: Comfortable Skin: No lesions seen MSK: No tender joints. No tender points. Bilateral crepitus present. Knee flexion 90 degrees bilateral. Stanford's cyst not present. Assessment & Plan Assessment & Plan (1) Knee osteoarthritis: Comment: Controlled on Lyrica recently started for fibromyalgia from PCP. Rheumatology history: bilateral knee pain R> L. she had benefit with right knee intra-articular cortisone injection last visit but does not want to proceed with another injection due to fear of needles. Code(s): M17.9 - Osteoarthritis of knee, unspecified Category: Medical Qualifiers: Osteoarthritis type: primary Laterality: bilateral Qualified Code(s): M17.0 - Bilateral primary osteoarthritis of knee Plan: Continue home exercise strengthening program She can take Tylenol as needed for pain Continue to use diclofenac 1% applied to affected area q.i.d. PRN pain I am avoiding oral NSAIDs as patient has had hives on ibuprofen and was told to avoid all NSAIDs. Continue to wear knee brace as needed Encouraged weight loss Follow up with PCP for pain management. Consider up titration of Lyrica as needed to control pain. If she needs adjunct therapy for fibromyalgia control, consider discussing with psychiatry replacing fluoxetine with duloxetine for management of depression, fibromyalgia, knee pain from osteoarthritis. Return to clinic in 6 months or sooner if knee (2) Medial epicondylitis: Comment: Right worse than left. Clinical diagnosis. Pain resolved this visit. Code(s): M77.00 - Medial epicondylitis, unspecified elbow Category: Medical Qualifiers: Laterality: unspecified laterality Qualified Code(s): M77.00 - Medial epicondylitis, unspecified elbow Plan: Monitor clinic (3) Osteoarthritis, hand, primary localized: Comment: Bilateral. Pain is controlled. On x-rays from October 2024. Code(s): M19.049 - Primary osteoarthritis, unspecified hand Category: Medical Plan: Monitor clinically Continue to use diclofenac gel 1% applied to affected area q.i.d. PRN pain Coding Level of Care Code Est Pt Level 3 (72121) Complex EM visit Add On G2211 Diagnoses Primary osteoarthritis of both knees M17.0 Osteoarthritis type: primary Laterality: bilateral Medial epicondylitis of elbow, unspecified laterality M77.00 Laterality: unspecified laterality Osteoarthritis, hand, primary localized M19.049
--- OUTSIDE RECORDS SUMMARY | 2025-01-30 11:10 | XMS_ITS | Clinical Summary ---
Author Organization 175 [facility] Address [address] [place] [address] Phone Care Team Providers Care Manager Farm Name Role Phone David Williamson MD Primary Care Provider [phone] Allergies Active Allergy Reactions Criticality Noted Date [...] 07/03/2012 Immunizations Name Administration Dates Next Due [facility] SARS-CoV-2 COVID-19, mRNA, LNP-S, preservative free 05/17/2021 [...] Value Date Recorded Sex Assigned at Female 11/18/2024 9:30 AM EDT Legal Sex Female 8:28 AM EST Gender Identity Female 11/18/2024 9:30 AM EDT Sexual Orientation Straight 11/18/2024 9: 30 AM EDT Obstetrics History Last Filed Vital Signs Vital Sign Reading Time Taken Comments Blood Pressure 111/67 05/28/2024 3:22 PM EST Pulse 77 05/28/2024 3:22 PM EST Temperature 37.5 C (99.5 F) 05/28/2024 3:22 PM EST Respiratory Rate 18 05/28/2024 3:22 PM EST Oxygen Saturation 95% 05/28/2024 3:22 PM EST Inhaled Oxygen Concentration - - Weight 80.3 kg (177 lb) 05/28/2024 12:36 PM EST Height 149.9 cm (4' 11 ) 05/28/2024 12:36 PM EST Body Mass Index 35.75 05/28/2024 12:36 PM EST Plan of Treatment Upcoming Encounters Date Type Department Care Team (Late st Contact Info) Description 02/11/2025 10:15 AM EDT Appointment [facility] [address] [place] [address] Irlanda Reyes, INSTRUMENT MAKER AND REPAIRER Health Maintenance Due Date Last Done Comments Breast Cancer Screening 1965 Cervical Cancer Screening: Pap Smear 1986 Colorectal Cancer Screening: Colonoscopy 05/14/2022 Hepatitis C Screening 05/14/2022 Social Influencers of Health Screening 05/14/2022 COVID-19 Vaccine ( season) 2024 08/17/2023, 05/17/2021, 11/14/2020, Additional history exists Depression Screening 06/05/2024 Influenza Vaccine (#1) 2025 , 04/27/2018, 03/29/2017, Additional history exists Hypertension/CHF/CAD Annual BMP Blood Test 05/28/2025 05/28/2024, 08/17/2023, 12/08/2022 Cholesterol Screening (Lipid Panel) 08/16/2028 08/17/2023, 08/17/2023, 12/08/2022, Additional history exists DTaP,Tdap,and Td Vaccines (3 - Td or Tdap) 08/16/2033 08/17/2023, 03/22/2013 RSV Immunization Adult Patients (1 - 1-dose 75+ series) 2040 HIV Screening Completed 09/08/2017 Pneumococcal Vaccine: 50+ Years Completed 12/30/2022, 01/26/2017 Hepatitis B Vaccines Completed [...] mmol/L LAB CHEMISTRY METHOD 05/28/2024 1:46 PM [facility] Potassium 3.6 3.5 - 5.5 mmol/L LAB CHEMISTRY METHOD 05/28/2024 1:46 PM [facility] Chloride 102 96 - 110 mmol/L LAB CHEMISTRY METHOD 05/28/2024 1:46 PM [facility] CO2 27 21 - 32 mmol/L LAB CHEMISTRY METHOD 05/28/2024 1:46 PM [facility] Anion Gap 7 3 - 11 LAB CHEMISTRY METHOD 05/28/2024 1:46 PM [facility] Glucose 104(H) 70 - 100 mg/dL LAB CHEMISTRY METHOD 05/28/2024 1:46 PM [facility] BUN 11 5 - 25 mg/dL LAB CHEMISTRY METHOD 05/28/2024 1:46 PM [facility] Creatinine 0.93 0.50 - 1.10 mg/dL LAB CHEMISTRY METHOD 05/28/2024 1:46 PM [facility] eGFR 71 >=60 mL/min/1. 73m2 LAB CHEMISTRY METHOD 05/28/2024 1:46 PM [facility] Comment:Calculation based on the Chronic Kidney Disease Epidemiology Collaboration (CKD-EPI) equation refit without adjustment for race. BUN/Creatinine Ratio 11.8 LAB CHEMISTRY METHOD 05/28/2024 1:46 PM [facility] Calcium 9.2 8.5 - 10.5 mg/dL LAB CHEMISTRY METHOD 05/28/2024 1:46 PM [facility] AST (SGOT) 25 10 - 42 unit/L LAB CHEMISTRY METHOD 05/28/2024 1:46 PM [facility] ALT (SGPT) 20 10 - 60 unit/L LAB CHEMISTRY METHOD 05/28/2024 1:46 PM [facility] Alkaline Phosphatase 79 42 - 121 unit/L LAB CHEMISTRY METHOD 05/28/2024 1:46 PM [facility] Total Protein 7.4 6.0 - 8.0 g/dL LAB CHEMISTRY METHOD 05/28/2024 1:46 PM [facility] Albumin 3.8 3.2 - 5.0 g/dL LAB CHEMISTRY METHOD 05/28/2024 1:46 PM [facility] Total Bilirubin 0.2 0.0 - 1.4 mg/dL LAB CHEMISTRY METHOD 05/28/2024 1:46 PM [facility] Blood Venous blood specimen / Unknown Venipuncture / Unknown 05/28/2024 1:08 PM EST 05/28/2024 1:13 PM EST Marcel Waddell MD LAB BLOOD ORDERABLES Final Res ult [facility] [address] [place] [address], * Lipid panel (12/08/2022) Triglycerides 0 mg/dL Comment:no interpretation Cholesterol 0 mg/dL Comment:no interpretation HDL 0 mg/dL Comment:no interpretation LDL Cholesterol 0 mg/dL Comment:no interpretation Blood Venous blood specimen / Unknown Lizbet Dawn MD LAB BLOOD ORDERABLES Flor cobos Result from Last 3 Months or Most Recently Relevant to Health Maintenance Insurance MEDICAID - [place] Care Teams Manager Farm Relationship Specialty Start Date End Date David Williamson MD [address] [place] [address] PCP - General Internal Medicine 09/21/17
--- OUTSIDE RECORDS SUMMARY | 2025-01-30 11:10 | XMS_ITS | Clinical Summary ---
Author Organization [facility] Address [address] [place] [address] Care Team Providers Care Analytics Specialist Name Role Phone Lenore Anders SHANE Primary Care Provider [phone] Source Comments PLEASE NOTE, if this patient [...] PSYCH- AUDIE 60MG QD 90 Cap 1 020 Active EPINEPHrine (EPIPEN) 0.3 mg/0.3 mL pen injectorIndicatio ns:Seafood allergy PRESCRIBED BY SENIOR FACILITIES MANAGER- [address] [place] [address] DRIVE [phone] 1 mL 020 Active miscellaneous medical supply misc by miscellaneous route once daily Cool mist humidifier, disp1,lifetime need, dx sinus congestion 1 Each 020 Active rizatriptan (MAXALT) 5 mg tablet PRESCRIBED BY NEUROLOGY BRYANT SILVERMAN 022 Active divalproex (DEPAKOTE) [address] tablet TAKE 1 TABLET BY MOUTH AT SUPPER DAILY WITH 500 MG TAB 022 Active doxepin (SINEQUAN) 50 mg capsule TAKE 1 CAPSULE BY MOUTH EVERYDAY AT BEDTIME 022 Active VENTOLIN HFA 90 mcg/actuation inhalerIndication s:Moderate persistent asthma without complication ([facility]) Inhale 2 Puffs into the lungs every 4 (four) hours as needed for shortness of breath or wheezing 18 g 1 023 Active betamethasone dipropionate (DIPROLENE) 0.05 % cream Apply topically once daily 15 g 1 023 Active capsaicin (CAPZASIN-HP) 0.1 % cream Apply topically 3 (three) times daily 43 g 1 023 Active ipratropium-albut Angelina (COMBIVENT RESPIMAT) 20-100 mcg/actuation inhalerIndication s:Moderate persistent asthma without complication ([facility]) INHALE 1 PUFF INTO THE LUNGS 4 TIMES DAILY. 4 g 1 023 Active albuterol (PROVENTIL) 2.5 mg /3 mL (0.083 %) nebulizer solutionIndicatio ns:Moderate persistent asthma without complication ([facility]) QID as needed for wheezing, SOB [...] BEFORE BREAKFAST 90 Capsule 024 Active fluticasone propion-salmetero L (ADVAIR DISKUS) 500-50 mcg/dose diskus inhalerIndication s:Moderate persistent asthma without complication ([facility]) INHALE 1 PUFF INTO THE LUNGS TWICE [...] 24 HOURS) 90 Patch 1 025 Active gabapentin (NEURONTIN) 100 mg capsuleIndication s:Neuropathic pain Take 1 Capsule by mouth nightly at bedtime as needed for other reason (pain) 30 Capsule 3 025 Active diclofenac sodium (VOLTAREN) 1 % gel APPLY TOPICALLY TWICE A DAY 500 g 1 025 Active prazosin (MINIPRESS) 1 mg capsuleIndication s:Anxiety TAKE 1 CAPSULE BY MOUTH EVERYDAY AT BEDTIME. 90 Capsule 1 025 Active fluticasone (FLONASE) 50 mcg/actuation nasal sprayIndications: Nasal congestion Place 2 Sprays in both nostrils once daily. 48 g 1 025 Active MISCELLANEOUS MEDICAL SUPPLY MISCIndications:O steoarthritis of both knees, unspecified osteoarthritis type,Moderate persistent asthma without complication ([facility]),Class 2 severe obesity due to excess calories with serious comorbidity and body mass index (BMI) of 38.0 to 38.9 in adult ([facility]),Chronic right-sided low back pain with right-sided sciatica,Fibromya lgia,Calcaneal spur of both feet,Plantar fasciitis, right,Tendinitis of left rotator cuff by miscellaneous route daily Electric Scooter. Use daily. Lifetime use for moderate persistent asthma, chronic right sided back pain, osteoarthritis of bilateral knees.. 1 Each 025 Active DULoxetine (CYMBALTA) [address] capsule Take 30 mg by mouth once daily. Active pravastatin (PRAVACHOL) 10 mg tabletIndications :Mixed hyperlipidemia Take 1 Tablet by mouth nightly at bedtime. 90 Tablet 1 025 Active meloxicam (MOBIC) 15 mg tabletIndications :Left knee pain, unspecified chronicity,Left ankle pain, unspecified chronicity,Pain of right middle finger TAKE 1 TABLET BY MOUTH EVERY DAY 90 Tablet 025 Active pregabalin (LYRICA) 25 mg capsuleIndication s:Fibromyalgia TAKE 1 CAPSULE BY MOUTH 2 (TWO) TIMES DAILY. MAX DAILY AMOUNT: 50 MG 60 Capsule 025 Active finasteride (PROSCAR) 5 mg tabletIndications :Alopecia TAKE 1 TABLET BY MOUTH EVERY DAY 90 Tablet 1 025 Active minoxidiL (LONITEN) 2.5 mg tabletIndications :Alopecia TAKE 1 TABLET BY MOUTH EVERY DAY 90 Tablet 1 025 Active finasteride (PROSCAR) 5 mg tabletIndications :Alopecia Take 1 Tablet by mouth once daily. 30 Tablet 3 025 2024 Discontinued minoxidiL (LONITEN) 2.5 mg tabletIndications :Alopecia Take 1 Tablet by mouth once daily. 30 Tablet 3 025 2024 Discontinued pregabalin (LYRICA) 25 mg capsuleIndication s:Fibromyalgia Take 1 Capsule by mouth 2 (two) times daily. Max Daily Amount: 50 mg 60 Capsule 025 2024 Discontinued Active Problems Patient Care Coordination No te Formatting of this note migh t be different from the original. Community Partner: [facility] Jerardo Metzger Associate Field Service Engineer phone [phone] E mail: [email or web address] Noted Date Diagnosed Date Alopecia 07/09/2024 [...] measuring 4mm b/l 01/10/19 - seen at [facility] c/o R flank pain and epigastric pain. [...] hearing loss (SNHL), bilateral Overview (10/07/2024): 09/2024: [facility] Audiology advised to wear hearing aids 04/10/18 [...] lumbar spine done 05/10/16 at [facility] = mild disc level degenerative changes [...] PSYCH/BH for medication and therapy on [address] Therapy every week Psych every 3 months Moderate persistent asthma ([facility]) Overview (08/17/2023): Pulm Dr. Martinez at [address] Every 1-2 months Migraine without aura and wi thout status migrainosus, not intractable Overview (08/17/2023): Neuro f/u at [facility], every 3 to 4 months 04/24/17 - [facility] Neuro F/U: -- Continue psychotherapy and [...] 023 Overview (05/07/2019): 01/10/19 - seen at [facility] c/o R flank pain and epigastric pain. [...] left 1st toe. 11/27/18 - Seen at [facility] for foot pain after fall. R ankle xray: neg. R foot xray: possible nondisplaced fx through the proximal phalanx of the R 4th toe. 12/14/18 - Seen at [facility] Ed c/o anterior R foot pain s/p fall 2 days ago. XRAY R foot: healing, nondisplaced Fx of the proximal phalanx of the 4th digit. Plantar fasciitis, right 01/01/2015 Overview (12/03/2018): X-ray 02/08/15 at [facility] = inferior calcaneal osteophytes, mildly increased since 12/26/13. S/p surgery right ankle 01/12/15 (peroneal tendon repair, tarsal tunnel release and plantar fasciotomy) done at [facility]. Seen by [facility] 11/06/15 for 2nd opinion on pain and advised stretching to improve gastroc flexibility. 08/08/18 - Seen by Neuro Dr. Sosa for persistent sharp and needle-like pain in R foot s/p fall in ~2014. Dx: chronic pain syndrome. F/U at earliest convenience with all meds. Calcaneal spur of both feet 12/23/2014 12/30/2022 Overview (12/03/2018): X-rays 12/21/14 at [facility] = moderate sized inferior calcaneal osteophyte. X-ray 02/08/15 at [facility] = inferior calcaneal osteophytes, mildly increased since 12/26/13. Hemorrhoids 07/14/2014 12/30/2022 Microcytic anemia 11/04/2011 12/30/2022 Allergic rhinitis due to allergen 12/30/2022 Overview (04/16/2013): F/U SENIOR FACILITIES MANAGER. Encounters Date Type Department Care Team Description 12/05/2024 Results Follow-Up [address] [phone] Lenore Anders FNP 12/03/2024 10:40 AM EDT Office Visit [address] [phone] Lenore Anders FNP 10/30/2024 Interim Notes [address] [phone] Marisabel Chaudhary MA 10/30/2024 Interim Notes [address] [phone] Marisabel Chaudhary MA from Last 3 Months Immunizations Immunization Administration Dates Next Due Flu, Cell Culture based, Pre servative Free, 6m+, Flucelvax 04/27/2018,04/27/2018,03/29/2017,2016 Flu, Preservative Free 07/29/2021,01/26/2017,10/2014 Hep B, Adult/Adol ([id number]/RECOMBIVAX-ADULT) 08/23/2000,06/07/2000 INFLUENZA, SEASONAL, INJECTABLE 06/27/19 17,03/16/2012,06/01/2011,2008,03/11/2008,04/24/2003 PFIZER COVID VACCINE, PURPLE CAP, 12+ 05/17/2021 PNEUMOCOCCAL CONJUGATE PCV 13 01/26/2017 PNEUMOCOCCAL CONJUGATE PCV 2 0 (Prevnar 20) 12/30/2022 Pfizer COVID-19 (Comirnaty), Mrna, Lnp-s, Pf, [...] e alcohol) Social Connections Answer Date Recorded How often do you feel lonely or isolated from th ose around you? 1 05/31/2024 Financial Resource Strain Answer Date R ecorded Hard to pay for: Food 2 05/31/2024 Stress Answer Date Recorded Do you feel these kinds of stress these days? 1 05/31/2024 Physical Activity Answer Date Recorded Physical Activity 0 01/26/2019 Food Insecurity Answer Date Recorded Hard to pay for: Food 2 05/31/2024 Transportation Needs Answer Date Record ed Hard to pay for: Transportation 1 05/31/2024 Housing Stability Answer Date Recorded Hard to pay for: Rent/Mortgage payment 1 05/31/2024 Safety and Environment Answer Date Rosales rded Safety 1 08/17/2023 Utilities Answer Date Recorded Hard to pay for: Utilities 1 05/31 Employment Answer Date Recorded Stress 0 06/14/2022 Comments No Sex and Gender Information Value Date Recorded Sex Assigned at Female 06/18/2017 8:21 AM PST Legal Sex Female 11:36 AM PDT Gender Identity Female 06/18/2017 8:21 AM PST Sexual Orientation Straight 07/28/2017 8: 08 AM PST Last Filed Vital Signs Vital Sign Reading Time Taken Comments Blood Pressure 110/80 12/03/2024 10:52 AM EDT Pulse 95 12/03/2024 10:52 AM EDT Temperature 37.1 C (98.7 F) 12/03/2024 10:52 AM EDT Respiratory Rate 16 12/03/2024 10:52 AM EDT Oxygen Saturation 96% 12/03/2024 10:52 AM EDT Inhaled Oxygen Concentration - - Weight 83.9 kg (185 lb) 12/03/2024 10:52 AM EDT Height 151.9 cm (4' 11.8 ) 12/03/2024 10:52 AM E DT Body Mass Index 36.37 12/03/2024 10:52 AM EDT Plan of Treatment Health Maintenance Due Date Last Done Comments HPV Screening 1965 Pap + HPV 1965 CT Colonography 2010 FIT/gFOBT 2010 Fecal DNA 2010 Flexible Sigmoidoscopy 2010 Cervical Cancer Screening 09/28/2012 Pap Smear 09/28/2012 09/28/2009 [id number] ( season) 2024 08/17/2023, 05/17/2021, 11/14/2020, Additional history exists Imm-Influenza (#1) 2025 07/29/2021, 1 06/27/2017 (Managed by Outside Provider), 04/27/2018, Additional history exists Depression Monitoring 03/05/2025 12/03/2024 , 10/23/2024, 08/17/2023, Additional history exists Imm-Hepatitis B (3 of 3 - 19+ 3-dose series) 03/06/2025 08/23/2000, 06/07/2000 Postponed from 12/05/2000 (Patient postponement) Breast Cancer Screening (Mammogram) 03/14/2025 03/14/2023, 09/21/2020, 09/14/2020, Additional history exists Diabetes Screening 10/23/2025 10/23/2024, 0 07/09/2024, 05/28/2024, Additional history exists Colonoscopy 11/30/2025 12/01/2015 Colorectal Cancer Screening 11/30/2025 Annual Wellness (Adult): Indicated (All Coverage) 12/03/2025 12/03/2024, 12/03/2024, 08/17/2023, Additional history exists Anxiety Screening 12/03/2025 12/03/2024 Lipid Screening 12/03/2025 12/03/2024, 02/0 09/2024, 08/17/2023, Additional history exists Tobacco Screening 12/04/2025 12/04/2024, 12/14/2022 Imm-DTaP/Tdap/Td (3 - Td or Tdap) 08/16/2033 08/17/2023, 03/22/2013 HIV Screening Completed 09/08/2017 Hepatitis C Screening Completed 09/08/2017 Imm-Pneumococcal 50+ Completed 12/30/2022, 01/27/20 Imm-Zoster, Recombinant Completed 08/28/2023, 12/30 Alcohol and Drug Screen Completed 12/04/19, 08/17/2023, 12/30/2022, Additional history exists Cervical Ablation/Cold-Knife Conization Discontinued Cervical Cryotherapy Discontinued Colposcopy Discontinued Endometrial Biopsy Discontinued Excision/Leep Discontinued HPV Genotyping Discontinued Vaginal Pap Discontinued Vulvoscopy Discontinued Procedures Procedure Name Priority Date/Time Associated Diagnosis Comments LIPID PANEL Routine 12/03/2024 11:42 AM EDT Routine general medical examination at a [facility] facility OTHER ORDERS SCANNED DOCUMENT 10/30/2024 3:00 AM EDT COMPREHENSIVE METABOLIC PANEL Routine 10/23/2024 11:02 AM EDT Problems with swallowing and mastication HISTORIC MAMMOGRAM 03/14/2023 3: 00 AM EDT ANTIBODY HIV-1&HIV-2 SINGLE RESULT Routine 09/08/2017 10:23 AM EDT Screening for HIV without presence of risk factors HEPATITIS A,B,C PANEL Routine 09/08/2017 10:23 AM EDT Need for hepatitis C screening test from Last 3 Months or Most Recently Relevant to Health Maintenance Results * (ABNORMAL) LIPID PANEL Routine (12/03/2024 11:42 AM EDT) Pathologist [facility] CHOLESTEROL, TOTAL 194 <200 mg/dL [employer] [facility] HDL CHOLESTEROL 65 > OR = 50 mg/dL [employer] TRIGLYCERIDES 99 <150 mg/dL [employer] LDL-CHOLESTEROL 110(H) 99 mg/dL (calc) [employer] [facility] Comment: Reference range: <100 Desirable range <100 mg/dL for primary prevention; <70 mg/dL for patients with CHD or diabetic patients with > or = 2 CHD risk factors. LDL-C is now calculated using the Sage-Clemente calculation, which is a validated novel method providing better accuracy than the Friedewald equation in the estimation of LDL-C. Sage SS et al. MIAH. 2013;310(19): 6199-6873 (http://education.[employer]/faq/TOE224) CHOL/HDLC RATIO 3.0 <5.0 (calc) [facility] NON-HDL CHOLESTEROL 129 <130 mg/dL (calc) [facility] Comment: For patients with diabetes plus 1 major ASCVD risk factor, treating to a non-HDL-C goal of <100 mg/dL (LDL-C of <70 mg/dL) is considered a therapeutic option. Blood Blood / Unknown 12/03/2024 1 1:42 AM EDT 12/03/2024 11:43 AM EDT Narrative [facility] - 12/04/2024 6:58 AM EDT FASTING:YES Lenore PATELP LAB - BLOOD DRAW Final Resul t [facility] [address] [place] [address], [facility] [address] [place] [phone] * OTHER ORDERS SCANNED DOCUMENT (10/30/2024 3:00 AM EDT) 10/30/2024 3:00 AM EDT Lexa Cronin MD SCAN OTHER ORDERS Final Result * COMPREHENSIVE METABOLIC PANEL Routine (10/23/2024 11:02 AM EDT) GLUCOSE 95 65 - 99 mg/dL [facility] Comment: Fasting reference interval UREA NITROGEN (BUN) 10 7 - 25 mg/dL [facility] CREATININE (blood) 0.57 0.50 - 1.03 mg/dL [facility] EGFR 105 > OR = 60 mL/min/1. 73m2 [facility] BUN/CREATININE RATIO SEE NOTE: [facility] Comment: Not Reported: BUN and Creatinine are within reference range. SODIUM 141 135 - 146 mmol/L [facility] POTASSIUM 4.5 3.5 - 5.3 mmol/L [facility] CHLORIDE 103 98 - 110 mmol/L [employer] [facility] CARBON DIOXIDE 32 20 - 32 mmol/L [employer] CALCIUM 9.7 8.6 - 10.4 mg/dL [employer] PROTEIN, TOTAL 7.0 6.1 - 8.1 g/dL [employer] ALBUMIN 4.4 3.6 - 5.1 g/dL [employer] GLOBULIN 2.6 1.9 - 3.7 g/dL (calc) [employer] ALBUMIN/GLOBULI N RATIO 1.7 1.0 - 2.5 (calc) [employer] BILIRUBIN, TOTAL 0.3 0.2 - 1.2 mg/dL [employer] ALKALINE PHOSPHATASE 110 37 - 153 U/L [employer] AST 16 10 - 35 U/L [employer] ALT 12 6 - 29 U/L [employer] [facility] Blood Blood / Unknown 10/23/2024 1 1:02 AM EDT 10/23/2024 11:03 AM EDT Narrative [facility] - 10/24/2024 8:52 AM EDT FASTING:YES Lenore Anders MEAT SOAKER LAB - BLOOD DRAW Final Resul t [employer] [facility] [address] [address], [employer] [address] [address] * HISTORIC MAMMOGRAM (03/14/2023 3:00 AM EDT) 03/14/2023 3:00 AM EDT Telma Churchill MEAT SOAKER-C IMG MAMMO Final Re sult * (ABNORMAL) HEPATITIS A,B,C PANEL (09/08/2017 10:23 AM EDT) HEPATITIS B SURFACE ANTIBODY NEGATIVE NEGATIVE [facility] HEPATITIS B SURFACE ANTIGEN NEGATIVE NEGATIVE [facility] Comment: Over the counter supplements containing high doses of biotin may interfere with this assay. If interference is suspected, patients shoud be retested after refraining from biotin supplements for 72 hours. HEPATITIS C VIRUS DIAGNOSTIC NEGATIVE NEGATIVE [facility] HEPATITIS B CORE ANTIBODY NEGATIVE NEGATIVE [facility] HEPATITIS A ANTIBODY TOTAL POSITIVE(A) NEGATIVE [facility] Comment: Over the counter supplements containing high doses of biotin may interfere with this assay. If interference is suspected, patients shoud be retested after refraining from biotin supplements for 72 hours. Blood specimen (specimen) Blood / Unknown 09/08/2017 10:23 AM EDT 09/08/2017 10:40 AM EDT Narrative [facility] - 09/08/2017 1:01 PM EDT [employer] [address] [place] [address] [place] [id number] ORD# [id number] Carmen Demarco PA-C LAB - BLOOD DRAW Edited R esult - Final Performing Organization Address [facility] [[email or web address]] de Phone Number [address] [address], * HIV-1 & HIV-2 ANTIBODIES (09/08/2017 10:23 AM EDT) [facility] HIV 1 AND 2 ANTIBODY SCREEN NEGATIVE NEGATIVE [facility] Comment: This assay is a 4th generation assay allowing for earlier detection of HIV infection by detecting the presence of the HIV-1 p24 antigen as well as the traditional antibodies to HIV type 1 (including group O) and type 2. Use of a 4th generation assay is the current CDC recommendation for HIV screening. Blood specimen (specimen) Blood / Unknown 09/08/2017 10:23 AM EDT 09/08/2017 10:40 AM EDT Narrative [facility] - 09/08/2017 1:30 PM EDT [employer] [address] [place] [address] [place] [id number] ORD# [id number] Carmen Demarco PA-C LAB - BLOOD DRAW Final Re sult Performing Organization Address [facility] [[email or web address]] de Phone Number [address] [place] [address], [place] [phone] from Last 3 Months or Most Recently Relevant to Health Maintenance Insurance [employer] [place] [address] HEALTH SAF[employer]Y NET DENTAL [employer] [facility] Care Teams Analytics Specialist Relationship Specialty Start Date End Date Lenore Anders FNP [address] [place] [address] PCP - General Family Medicine, WATCH DIAL STONER 11/11/24
--- OUTSIDE RECORDS SUMMARY | 2025-01-30 11:10 | XMS_ITS | Clinical Summary ---
Author Organization [employer] [facility] Address [address] [place] [address] Care Team Providers Care Capital Campaign Fundraiser Name Role Phone Unavailable Primary Care Provider Unavailabl e Encounters Date Type Department Care Team Description 12/24/2024 Population Health Risk Score [facility] Care [facility] (C3) Department [address] [place] [id number] Provider, Population Health Generic from Last 3 Months Social History Tobacco Use Types Packs/Day Years Used Date Smoking Tobacco: Never Assessed Comments Unknown Sex and Gender Information Value Date Recorded Sex Assigned at Not on file Legal Sex Female 9:30 PM EDT Gender Identity Not on file Sexual Orientation Not on file Plan of Treatment Health Maintenance Due Date Last Done Comments CT Colonography 1965 Colonoscopy 1965 Colorectal Cancer Screening 1965 Depression Screening 1965 FIT DNA/Cologuard 1965 FIT 1965 FOBT 1965 Lipid Panel 1965 SDOH Screening 1965 Sigmoidoscopy 1965 Disability Screening 1965 Alcohol/Substance Use Screening 1977 Tobacco Screening 1977 Hepatitis C Screening 1983 Pap Smear 1986 Cervical Cancer Screening 1995 HPV/Cotest 1995 Hepatitis B Vaccines (3 of 3 - 19+ 3-dose series) 12/05/2000 08/23/2000, 06/07/2000 Mammogram 2005 Zoster Vaccines (2 of 2) 02/24/2023 12/30/2022 COVID-19 Vaccine (3 - 2023- season) 2024 08/17/2023, 05/17/2021 Influenza Vaccine (#1) 2025 2, 04/27/2018, 03/29/2017, Additional history exists DTaP/Tdap/Td Vaccines (3 - Td or Tdap) 08/16/2033 08/17/2023, 03/22/2013 RSV Patients and Patients Aged 60 years or older (1 - 1-dose 75+ series) 2040 HIV Screening Completed 09/08/2017 Pneumococcal Vaccine: 50+ Years Completed 12/30/2022, 01/26/2017 HIB Vaccines Aged Out No longer eligi [...] patient's age to complete this topic Meningococcal Vaccine Aged Out No shani tameka eligible based on patient's age to complete this topic RSV under 20 months Aged Out No longe r eligible based on patient's age to complete this topic Rotavirus Vaccines Aged Out No longer eligible based on patient's age to complete this topic
== END 2025-01-30 10:39 | disposition home or self-care (01) ==
LOC: HO.RHES 10:00
PROVIDERS: PCP Student in an Organized Health Care Education/Training Program; Visit Provider Internal Medicine Rheumatology
DX: M17.0 Bilateral primary osteoarthritis of knee (principal); M77.00 Medial epicondylitis, unspecified elbow; M19.049 Primary osteoarthritis, unspecified hand
CPT/HCPCS: 99213

== ENCOUNTER → 2025-01-30 09:59 | Outpatient (BNVA) | payer MEDICAID, SELFPAY | PROVIDERS: PCP Student in an Organized Health Care Education/Training Program; Visit Provider Internal Medicine Rheumatology | DX: M17.0 Bilateral primary osteoarthritis of knee (principal); M77.00 Medial epicondylitis, unspecified elbow; M19.041 Primary osteoarthritis, right hand; M19.042 Primary osteoarthritis, left hand | CPT/HCPCS: 99212 ==